=== PATIENT | male | born 1960 | race Caucasian/White ===

== ENCOUNTER → 2019-08-22 | Outpatient (CLI) | payer OTHER ==
[2019-09-04 14:43] LABS: Stool Occult Bld Immuno 1 Negative (NEGATIVE)
== END | disposition home or self-care (01) ==
LOC: LAB 16:13 → LAB SHORT 16:13
PROVIDERS: Family Medicine
DX: Z12.11 Encounter for screening for malignant neoplasm of colon (principal)
CPT/HCPCS: G0328

== ENCOUNTER 2020-10-03 13:34 | Inpatient (IN) | payer OTHER ==
[~2020-10-03] VITALS: Ht 185.4 cm; Wt 91.0 kg
[2020-10-03 14:06] LABS: BASOPHILS ABSOLUTE AUTO 0.11 K/mm3 (0.00-0.23); BASOPHILS PERCENT AUTO 1 % (0-2); EOSINOPHILS ABSOLUTE AUTO 0.33 K/mm3 (0.00-0.68); EOSINOPHILS PERCENT AUTO 4 % (0-6); Hematocrit 35.2 % (37.0-53.0); IMMATURE GRAN ABSOLUTE AUTO 0.02 K/mm3 (0.00-0.10); IMMATURE GRAN PERCENT AUTO 0 % (0-1); LYMPHOCYTES PERCENT AUTO 28 % (21-46); MONOCYTES ABSOLUTE AUTO 0.55 K/mm3 (0.16-1.47); MONOCYTES PERCENT AUTO 6 % (4-13); Mean Corpuscular HGB 24.1 pg (26.0-34.0); Mean Corpuscular HGB Conc 31.3 g/dL (31.5-36.5); Mean Corpuscular Volume 77 fL (80-100); Mean Platelet Volume 11.2 fL (9.1-12.4); NEUTROPHILS ABSOLUTE AUTO 5.82 K/mm3 (1.96-9.15); NEUTROPHILS PERCENT AUTO 61 % (41-73); NRBC ABSOLUTE 0.04 K/mm3 (0.00-0.02); NRBC Auto 0.4 /100 WBC (0.0-0.2); Platelet Count 272 K/mm3 (150-400); RDW Coefficient Variation 17.4 % (11.7-14.2); RDW Standard Deviation 47.9 fL (35.1-46.3); Red Blood Cell Count 4.57 M/mm3 (4.30-5.90); White Blood Cell Count 9.53 K/mm3 (4.00-11.30)
[2020-10-03] MEDS ORDERED: Prinivil10 MG PO (14:20)
[2020-10-03] MEDS ORDERED: EZET10 PO (14:20)
[2020-10-03] MEDS ORDERED: METO25ER PO (14:20)
[2020-10-03] MEDS ORDERED: OZEMPIC1 MG/0.71 SC (14:21)
[2020-10-03] MEDS ORDERED: METF500 PO (14:21)
[2020-10-03] MEDS ORDERED: PREGABALIN150 MG PO (14:22)
[2020-10-03] MEDS ORDERED: ALBU90OI INH (14:22)
[2020-10-03] MEDS ORDERED: XARELTO20 MG PO (14:23)
[2020-10-03] MEDS ORDERED: ACET325 PO (14:23)
[2020-10-03] MEDS ORDERED: IBUP800 PO (14:23)
[2020-10-03] MEDS ORDERED: C COMPLEX1000 M1 PO (14:24)
[2020-10-03] MEDS ORDERED: VITAMIN D31000 UNI1 PO (14:24)
[2020-10-03 14:26] LABS: Bilirubin, Total 0.8 mg/dL (0.1-1.0); Bun/Creatinine Ratio 16.7 (12.0-20.0); Calcium, Blood 8.4 mg/dL (8.5-10.1); Creatinine, Blood 1.44 mg/dL (0.60-1.20); Globulin, Blood 3.1 g/dL (2.2-4.0); Potassium, Blood 5.5 mmol/L (3.5-5.5); Total Protein, Blood 6.1 g/dL (6.4-8.2); Troponin I 0.027 ng/mL (0.000-0.040)
[2020-10-03] MEDS ORDERED: LANTUS SOL100 UNIT/1 SC (14:27)
[2020-10-03] MEDS ORDERED: DOXE75C PO (15:18)
[2020-10-03] MEDS ORDERED: ASPI325 PO (15:37)
[2020-10-03] MEDS ORDERED: OMEGA PO (15:39)
[2020-10-03] MEDS ORDERED: CARBOXYMETHYLCE15 ML LEFTEYE (15:41)
--- NOTE | 2020-10-03 17:36 | NUR ---
RECIEVED REPORT FROM EMMY CHATTERJEE RN, AT [id number]. PATIENT TO TRANSFER TO ROOM 16.
[2020-10-04 01:11] LABS: BASOPHILS ABSOLUTE AUTO 0.12 K/mm3 (0.00-0.23); BASOPHILS PERCENT AUTO 1 % (0-2); EOSINOPHILS ABSOLUTE AUTO 0.46 K/mm3 (0.00-0.68); EOSINOPHILS PERCENT AUTO 5 % (0-6); Hematocrit 35.1 % (37.0-53.0); Hemoglobin 10.8 g/dL (13.5-17.5); IMMATURE GRAN ABSOLUTE AUTO 0.02 K/mm3 (0.00-0.10); IMMATURE GRAN PERCENT AUTO 0 % (0-1); LYMPHOCYTES ABSOLUTE AUTO 3.39 K/mm3 (0.84-5.20); LYMPHOCYTES PERCENT AUTO 36 % (21-46); MONOCYTES ABSOLUTE AUTO 0.55 K/mm3 (0.16-1.47); MONOCYTES PERCENT AUTO 6 % (4-13); Mean Corpuscular HGB 24.1 pg (26.0-34.0); Mean Corpuscular HGB Conc 30.8 g/dL (31.5-36.5); Mean Corpuscular Volume 78 fL (80-100); Mean Platelet Volume 10.7 fL (9.1-12.4); NEUTROPHILS ABSOLUTE AUTO 4.78 K/mm3 (1.96-9.15); NEUTROPHILS PERCENT AUTO 51 % (41-73); NRBC ABSOLUTE 0.03 K/mm3 (0.00-0.02); NRBC Auto 0.3 /100 WBC (0.0-0.2); Platelet Count 240 K/mm3 (150-400); RDW Coefficient Variation 17.3 % (11.7-14.2); RDW Standard Deviation 48.3 fL (35.1-46.3); Red Blood Cell Count 4.49 M/mm3 (4.30-5.90); White Blood Cell Count 9.32 K/mm3 (4.00-11.30)
[2020-10-04 01:49] LABS: Albumin, Blood 2.9 g/dL (3.4-5.0); Albumin/Globulin Ratio 0.9 (0.8-1.8); Bilirubin, Total 0.5 mg/dL (0.1-1.0); Bun/Creatinine Ratio 17.9 (12.0-20.0); Creatinine, Blood 1.51 mg/dL (0.60-1.20); Globulin, Blood 3.1 g/dL (2.2-4.0); Potassium, Blood 4.8 mmol/L (3.5-5.5); Thyroid Stimulating Hormone 1.54 uIU/mL (0.360-4.800); Troponin I 0.028 ng/mL (0.000-0.040)
--- NOTE | 2020-10-04 05:22 | NUR ---
SHIFT SUMMARY PT ALERT AND ORIENTED X 4. PT SLEPT T/O SHIFT. PT IND IN ROOM WITH CANE. PT ABLE TO TURN SELF IN BED NEEDED. HR REMAINED STABLE. BP STABLE. OXYGEN SATURATION MAINTAINED ABOVE 92% ON RA. NO CP OR PRESSURE REPORTED T/O SHIFT. WILL CONTINUE TO MONITOR UNTIL REPORT GIVEN TO DAYSHIFT RN.
--- NOTE | 2020-10-04 14:18 | NUR ---
echocardiogram complete
--- NOTE | 2020-10-04 16:48 | NUR ---
PATIENT HAS BEEN PLEASANT AND COOPERATIVE WITH STAFF. NO COMPLAINTS OF PAIN OR DISCOMFORT. PATIENT WITHOUT ANY ACUTE CHANGES DURING THIS SHIFT. PATIENT RESTING IN ROOM AT THIS TIME. CALL LIGHT WITHIN REACH.
[2020-10-05 04:30] LABS: Bun/Creatinine Ratio 21.8 (12.0-20.0); Calcium, Blood 7.8 mg/dL (8.5-10.1); Creatinine, Blood 1.42 mg/dL (0.60-1.20); Potassium, Blood 4.8 mmol/L (3.5-5.5)
--- NOTE | 2020-10-05 06:17 | NUR ---
SHIFT SUMMARY PT ALERT AND ORIENTED X 4. HR STABLE. BP STABLE. PT REPORTS NO CP OR PRESSURE. OXYGEN SATURATION MAINTAINED ABOVE 95% ON RA. PT ABLE TO TURN SELF NEEDED IN BED. IND IN ROOM. WILL CONTINUE TO MONITOR UNTIL REPORT GIVEN TO DAYSHIFT RN.
[2020-10-05] MEDS ORDERED: POTA10T PO (11:59)
[2020-10-05] MEDS ORDERED: XARELTO20 MG PO (12:04)
[2020-10-05] MEDS ORDERED: FUROSEMIDE (LASIX) PO (12:05)
--- NOTE | 2020-10-05 13:04 | NUR ---
DISCHARGE: PT ALERT AND ORIENTED X4. ON ROOM AIR SATING ABOVE 92%. TELE SHOWING NSR WITH HR 90'S. DENIES CHEST PAIN. VITAL SIGNS STABLE. NO ACUTE CHANGES. LEFT CHRONIC FACIAL DROOP, HX OF LEFT EAR SURGERY WHERE A FACIAL NERVE WAS CLIPPED. DENIES ANY PAIN. SOB WITH EXCERTION. 2-3+ PITTING EDEMA BILATERAL LOWER EXTREMITIES. USING URINAL AND CALLING APPROPRIATLY. DISCHARGE INSTRUCTIONS REVIEWED AND QUESTIONS ANSWERED. IV REMOVED VIA PROTOCOL. TAKEN TO CAR VIA WHEELCHAIR.
== END 2020-10-05 12:54 | disposition home or self-care (01) | DRG 281 ==
LOC: ER 13:34 → PCU 16:17 → ERHOLD 16:17 → PCU 17:57
PROVIDERS: Family Medicine; Physician Assistant; ADMIT Internal Medicine
DX: I50.21 Acute systolic (congestive) heart failure (principal); I21.A1 Myocardial infarction type 2; I48.20 Chronic atrial fibrillation, unspecified; Z79.01 Long term (current) use of anticoagulants; Z79.84 Long term (current) use of oral hypoglycemic drugs; Z87.891 Personal history of nicotine dependence; N18.30 Chronic kidney disease, stage 3 unspecified; E11.22 Type 2 diabetes mellitus with diabetic chronic kidney disease; G51.0 Bell's palsy; R06.89 Other abnormalities of breathing
CPT/HCPCS: 36415; 71046; 80048; 80053; 82947; 83880; 84443; 84484; 85025; 93005; 93010; 93306; 96374; 99285-25; A9270; J1940

== ENCOUNTER → 2020-11-03 | Outpatient (CLI) | payer OTHER ==
[~2020-11-03] MED LIST: ACET325 PO; ALBU90OI INH; ASPI325 PO; ASPI81CH PO; AZO CRANBERRY PO; Acetaminophen325 M1 PO; BUME2 PO; BUMETANIDE2 M2 PO; C COMPLEX1000 M1 PO; CARBOXYMETHYLCE15 ML LEFTEYE; CEPH250A PO; DOXE75C PO; EZET10 PO; FAMO20 PO; FURO20 PO; FURO40 PO; FUROSEMIDE (LASIX) PO; HUMALOG KW100 UNIT/1 SC; IBUP800 PO; JARDIANCE25 MG PO; LACRI-LUBE BOTHEYES; LANTUS SOL100 UNIT/1 SC; LOSA25 PO; METF500 PO; METF500C PO; METFORMIN HCL500 M2 PO; METO25ER PO; MUPIROCIN1 G1 TOP; Midodrine HCl2.5 MG PO; NYSTATIN100000 UNI SS; OMEGA PO; ONDA4 PO; OZEMPIC1 MG/0.71 SC; POTA10T PO; POTCHL20ER PO; PREG150 PO; PREGABALIN150 MG PO; Prinivil10 MG PO; SENN187 PO; SPIR50 PO; TAMS.4ER PO; TAMSULOSIN HCL0.4 M1 PO; VITAMIN D31000 UNI1 PO; XARELTO20 MG PO
[2020-11-04 08:50] LABS: Stool Occult Bld Immuno 1 Negative (NEGATIVE)
== END | disposition home or self-care (01) ==
LOC: LAB 08:00 → LAB SHORT 08:00
PROVIDERS: Student in an Organized Health Care Education/Training Program
DX: D50.9 Iron deficiency anemia, unspecified (principal)
CPT/HCPCS: 82274

== ENCOUNTER 2020-11-05 03:28 | Inpatient (IN) | payer OTHER ==
[~2020-11-05] VITALS: Ht 185.4 cm; Wt 123.5 kg
[~2020-11-05 03:28] MED LIST changes: -ASPI81CH PO; -AZO CRANBERRY PO; -Acetaminophen325 M1 PO; -BUME2 PO; -BUMETANIDE2 M2 PO; -CEPH250A PO; -FAMO20 PO; -FURO20 PO; -FURO40 PO; -HUMALOG KW100 UNIT/1 SC; -JARDIANCE25 MG PO; -LACRI-LUBE BOTHEYES; -LOSA25 PO; -METF500C PO; -METFORMIN HCL500 M2 PO; -MUPIROCIN1 G1 TOP; -Midodrine HCl2.5 MG PO; -NYSTATIN100000 UNI SS; -ONDA4 PO; -POTCHL20ER PO; -PREG150 PO; -SENN187 PO; -SPIR50 PO; -TAMS.4ER PO; -TAMSULOSIN HCL0.4 M1 PO
[2020-11-05 04:08] LABS: PCO2 Arterial 21.8 mmHg (35-45); PO2 Arterial 110 mmHg (80-100); pH Blood Arterial 7.45 (7.35-7.45)
[2020-11-05 04:11] LABS: BASOPHILS ABSOLUTE AUTO 0.05 K/mm3 (0.00-0.23); BASOPHILS PERCENT AUTO 1 % (0-2); EOSINOPHILS ABSOLUTE AUTO 0.09 K/mm3 (0.00-0.68); EOSINOPHILS PERCENT AUTO 1 % (0-6); Hematocrit 35.8 % (37.0-53.0); IMMATURE GRAN ABSOLUTE AUTO 0.03 K/mm3 (0.00-0.10); IMMATURE GRAN PERCENT AUTO 0 % (0-1); LYMPHOCYTES ABSOLUTE AUTO 3.07 K/mm3 (0.84-5.20); LYMPHOCYTES PERCENT AUTO 33 % (21-46); MONOCYTES ABSOLUTE AUTO 0.65 K/mm3 (0.16-1.47); MONOCYTES PERCENT AUTO 7 % (4-13); Mean Corpuscular HGB 21.9 pg (26.0-34.0); Mean Corpuscular HGB Conc 30.7 g/dL (31.5-36.5); Mean Corpuscular Volume 71 fL (80-100); NEUTROPHILS ABSOLUTE AUTO 5.42 K/mm3 (1.96-9.15); NEUTROPHILS PERCENT AUTO 58 % (41-73); NRBC ABSOLUTE 0.12 K/mm3 (0.00-0.02); NRBC Auto 1.3 /100 WBC (0.0-0.2); Platelet Count 92 K/mm3 (150-400); RDW Coefficient Variation 21.6 % (11.7-14.2); RDW Standard Deviation 49.1 fL (35.1-46.3); Red Blood Cell Count 5.02 M/mm3 (4.30-5.90); White Blood Cell Count 9.31 K/mm3 (4.00-11.30)
[2020-11-05 04:23] LABS: International Normalized Ratio 3.01; Prothrombin Time Results 30.3 Sec (9.7-11.5)
[2020-11-05 04:29] LABS: Albumin/Globulin Ratio 1.1 (0.8-1.8); Bilirubin, Total 2.7 mg/dL (0.1-1.0); Bun/Creatinine Ratio 24.2 (12.0-20.0); Calcium, Blood 8.7 mg/dL (8.5-10.1); Creatinine, Blood 2.56 mg/dL (0.60-1.20); Globulin, Blood 2.7 g/dL (2.2-4.0); Potassium, Blood 4.9 mmol/L (3.5-5.5); Total Protein, Blood 5.7 g/dL (6.4-8.2); Troponin I 0.031 ng/mL (0.000-0.040)
[2020-11-05 05:13] LABS: Source, Urine Voided
[2020-11-05 05:16] LABS: Bilirubin, Urine Neg (Neg); Blood, Urine 2+ (Neg); Glucose Qualitative, Urine Neg (Neg); Ketones, Urine Neg (Neg); Leukocyte Esterase, Urine 1+ (Neg); Nitrite, Urine Neg (Neg); Protein, Urine 1+ (Neg); Specific Gravity, Urine 1.015 (1.003-1.022); Urobilinogen, Urine NORM (Normal)
[2020-11-05 05:24] LABS: Appearance, Urine Clear (Clear); Color, Urine Yellow (P-Yellow); White Blood Cells, Urine 0-2 /hpf (0-5)
[2020-11-05 05:25] LABS: Bacteria Few /hpf; Hyaline Casts 50-100 /lpf (0-2); Squamous Epithelial Cells Few /hpf (Few)
--- NOTE | 2020-11-05 07:10 | NUR ---
PATIENT IS A NEW ADMIT FROM THE ED. FIVE PERSON TRANSFER FROM [facility] TO BED. ON 2L O2 NC AND RA BASELINE. ONE ASSIST TO BS BARIATRIC COMMODE. NPO FOR ULTRA SOUND. STANLEY PLACE IN ED FOR I&O'S. EDEMA 4+ RESHMA. DENIES CHEST PAIN AND N/V. DR CERDA IN FOR CONSULT. PENDING TELEMETRY. 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 PATIENT ORIENTED TO ROOM AND CALL LIGHT SYSTEM. BED ALARM FOR BEING IMPULSIVE. CALL LIGHT IN REACH.
--- NOTE | 2020-11-05 09:06 | NUR ---
PT BP/DIURETICS THIS RN SPOKE WITH DR. CERDA ON THE PHONE AND CLARIFIED DIURETIC ORDERS WITH PT BP OF 98/73. THIS RN RECIEVED ORDERS TO CONTINUE TO GIVE AM DOSE OF BUMEX AND ALDACTONE WITH PT'S BP. THIS RN WILL CONTINUE TO MONITOR PT STATUS.
[2020-11-05] MEDS ORDERED: FAMO20 PO (11:22)
[2020-11-05] MEDS ORDERED: SPIR50 PO (11:22)
[2020-11-05] MEDS ORDERED: TAMS.4ER PO (11:22)
[2020-11-05] MEDS ORDERED: FURO20 PO ×2 (11:23)
[2020-11-05] MEDS ORDERED: METF500C PO (11:30)
--- NOTE | 2020-11-05 17:14 | NUR ---
PT BP/BUMEX ORDER THIS RN SPOKE WITH DR. CERDA REGARDING PT'S BP OF 91/63 AND 8 ML BUMEX ORDER. THIS RN RECEIVED ORDERS TO CONTINUE TO GIVE BUMEX WITH PT'S LOW BP. THIS RN WILL CONTINUE TO MONITOR PT STATUS.
--- NOTE | 2020-11-05 18:08 | NUR ---
Spiritual care note: Mr. Webster spoke at length about his many "botched" surgeries and the difficulty these have brought. He is a and a retired respiratory therapist. He had to quit working due to his left sided paralysis. His is 14 years older than he, and he worries about dying before she does. He admits that his new health crisises have overwhelmed him. Cardiac, renal, and hepatic problems are new newly diagnosed and he has had trouble shifting through information/appointments. He could use a little guidence, symptom management, and emotional support. We had an easy rapport, and Mr. Webster responded well to emotional affirmation and prayer. He is clearly processing his declining health and the impact this brings to ADLs. He will benefit from continued support. [employer] will remain available.
--- NOTE | 2020-11-05 19:21 | NUR ---
SHIFT SUMMARY PT IS AOX4, WITH SLOW SPEECH. PT DENIES PAIN, N/V, SOB. PT 24HR URINE STARTED AT 1000 TODAY. INTAKE IS GOOD. PT REMAINS HYPOTENSIVE THIS ARNOLDO AND IS RECEIVING DIURETICS. PT HAD ABDOMINAL ULTRASOUND THIS AM. PT DID NOT HAVE VISITORS TODAY. PT IS IN BED, CALL LIGHT IN REACH, BED IN LOW POSITION.
[2020-11-06 04:36] LABS: BASOPHILS ABSOLUTE AUTO 0.04 K/mm3 (0.00-0.23); BASOPHILS PERCENT AUTO 0 % (0-2); EOSINOPHILS PERCENT AUTO 1 % (0-6); Hematocrit 36.8 % (37.0-53.0); Hemoglobin 11.6 g/dL (13.5-17.5); IMMATURE GRAN ABSOLUTE AUTO 0.04 K/mm3 (0.00-0.10); IMMATURE GRAN PERCENT AUTO 0 % (0-1); LYMPHOCYTES ABSOLUTE AUTO 2.64 K/mm3 (0.84-5.20); LYMPHOCYTES PERCENT AUTO 22 % (21-46); MONOCYTES ABSOLUTE AUTO 0.76 K/mm3 (0.16-1.47); MONOCYTES PERCENT AUTO 6 % (4-13); Mean Corpuscular HGB 21.8 pg (26.0-34.0); Mean Corpuscular HGB Conc 31.5 g/dL (31.5-36.5); Mean Corpuscular Volume 69 fL (80-100); NEUTROPHILS ABSOLUTE AUTO 8.22 K/mm3 (1.96-9.15); NEUTROPHILS PERCENT AUTO 70 % (41-73); NRBC ABSOLUTE 0.12 K/mm3 (0.00-0.02); Platelet Count 94 K/mm3 (150-400); RDW Coefficient Variation 21.8 % (11.7-14.2); RDW Standard Deviation 48.2 fL (35.1-46.3); Red Blood Cell Count 5.33 M/mm3 (4.30-5.90)
[2020-11-06 04:50] LABS: International Normalized Ratio 2.53; Prothrombin Time Results 25.7 Sec (9.7-11.5)
[2020-11-06 04:53] LABS: Albumin, Blood 3.1 g/dL (3.4-5.0); Albumin/Globulin Ratio 1.1 (0.8-1.8); Bun/Creatinine Ratio 25.8 (12.0-20.0); Calcium, Blood 8.8 mg/dL (8.5-10.1); Creatinine, Blood 2.21 mg/dL (0.60-1.20); Globulin, Blood 2.9 g/dL (2.2-4.0); Phosphorus, Blood 3.3 mg/dL (2.5-4.9); Potassium, Blood 4.2 mmol/L (3.5-5.5)
--- NOTE | 2020-11-06 05:17 | NUR ---
SHIFT SUMMARY PATIENT HAD NO ACUTE CHANGES OBSERVED. AXOX 3 AND SLOW TO RESPOND. LS FACIAL PARALYSIS. TWENTY-FOUR HOUR URINE COLLECTION IN PROGRESS UNTIL 10:00. ANGEL PATENT AND DRAINING. PIV REMAINS INTACT. TRUCK UNLOADER REPORTS ST 101 W/BBB. VSS/AFEBRILE. DENIES PAIN AND N/V. FLUID RESTRICTION 1,000 mL. ONE ASSIST TO BARIATRIC BSC. CALL LIGHT IN REACH. BED IN LOWEST POSITION. WILL CONTINUE TO MONITOR UNTIL DAY SHIFT NURSE ASSUMES CARE.
[2020-11-06 10:54] LABS: Protein, Urine Quantitative 7.1 mg/dL (0.0-11.9)
--- NOTE | 2020-11-06 16:54 | NUR ---
RECEIVED CALL FROM PCU TELECOMMUNICATIONS SWITCH TECHNICIAN. PT IS SHOWING SOME SORT OF MOPHOLOGY WITH HIS BUNDLE BRANCH. PT MAY HAVE ELEVATED ST WAVES, HOWEVER WAVES ARE NOT DIFFERENTIATED. PT IS ASYMPTOMATIC. I SPOKE WITH MD WAN TELE CONCERNS AND EKG WILL BE ORDERED AND COMPLETED.
--- NOTE | 2020-11-06 18:45 | NUR ---
PT IS IN BED RESTING AFTER DINNER AND PM MEDICATION ADMIN. PT REMAINS ALERT AND ORIENTED X4, AND ON 1000 ML PER SHIFT FLUID RESTRICTION. ELIZ HAS BEEN DC'D AND WNL, WILL MONITOR FOR RETENTION. PT MAKES NO C/O OF CHEST PAIN OR SOB AT THIS TIME. EKG RESULTS WERE READ TO DR. SOTO AND NO NEW ORDERS WERE MADE. TELE TO CONT. TO MONITOR. STAFF WILL CONT TO MONITOR FOR SS.
[2020-11-06 20:49] LABS: Influenza A, PCR NEGATIVE (NEGATIVE); Influenza B, PCR NEGATIVE (NEGATIVE); Resp Syncytial Virus, PCR NEGATIVE (NEGATIVE); SARS-Cov-2 (COVID-19) PCR, MMC NEGATIVE (NEGATIVE)
--- NOTE | 2020-11-07 | NUR ---
UNWITNESSED FALL- UPON ENTERING ROOM FOUND PT. KNEELING ON THE FLOOR AND HOLDING ONTO THE WALKER. PT. STATED DID NOT WANT HIS BARE FEET TO TOUCH THE HOSPITAL FLOOR SO HE PLACED A PILLOW ON THE FLOOR AND STOOD ON IT WHILE ATTEMPTING TO URINATE IN THE URINAL. STATED PILLOW SLIPPED OUT FROM UNDERNEATH HIS FEET AND HE FELL ONTO HIS KNEES. PT. WAS ABLE TO STAND UP WITH ASSISTANCE BY THIS NURSE AND WALKED OVER TO THE BED W/O DIFFICULTY. ASSESSMENT PERFORMED WNL, VSS. PT. A&OX4, DENIES ANY PAIN OR DISCOMFORT. NO S/S OF REDNESS, ABRASIONS, OR BRUISING NOTED AT THIS TIME. PT. REFUSES TO WEAR HOSPITAL SOCKS WHILE AMBULATING, STATING THEY MAKE HIS FEET HURT MORE. INFORMED PT. NON-SKID SOCKS ARE HELPFUL IN PROVIDING SAFE AMBULATION. ALSO DISCUSSED CALLING NURSING STAFF FOR ASSISTANCE W/TOILETING AND/OR AMBULATION. THIS NURSE AND HUMAN RESOURCES MGR ASSISTED PT. WITH REPOSITIONING IN BED, URINAL PLACED AT THE BEDSIDE WELL THE BSC. CHARGE NURSE JOSH THOMPSON AND HOSPITALIST DR. PORTER NOTIFIED. RECEIVED ORDER TO CONT TO MONITOR. PT. RESTING QUIETLY IN BED, NO APPARENT DISTRESS NOTED. INSTRUCTED PT. TO CALL STAFF FOR ASSISTANCE WITH ANY NEEDS. CALL LIGHT WITHIN REACH, SIDE RAILS UPX2, BED IN LOW POSITION, AND BED ALARM ON FOR SAFETY. WILL CONT TO MONITOR. INSTRUCTED TO CALL STAFF FOR ASSISTANCE WITH ANY NEEDS. PT. RESTING QU
[2020-11-07 05:18] LABS: Hematocrit 36.1 % (37.0-53.0); Hemoglobin 11.4 g/dL (13.5-17.5)
[2020-11-07 05:45] LABS: Albumin, Blood 2.9 g/dL (3.4-5.0); Albumin/Globulin Ratio 1.1 (0.8-1.8); Bilirubin, Total 4.9 mg/dL (0.1-1.0); Bun/Creatinine Ratio 26.6 (12.0-20.0); Calcium, Blood 8.3 mg/dL (8.5-10.1); Creatinine, Blood 1.77 mg/dL (0.60-1.20); Globulin, Blood 2.7 g/dL (2.2-4.0); Potassium, Blood 3.5 mmol/L (3.5-5.5); Total Protein, Blood 5.6 g/dL (6.4-8.2)
[2020-11-07 05:55] LABS: International Normalized Ratio 1.94
--- NOTE | 2020-11-07 06:26 | NUR ---
SHIFT SUMMARY- PT. A&OX4, HAD NO COMPLAINTS THIS AM. RESTING QUIETLY IN BED, USING URINAL AT THE BEDSIDE. PT. DOES NOT CALL APPROPRIATELY FOR ASSISTANCE, BED ALARM IN PLACE. DENIES SOB, PAIN OR DISCOMFORT. CALL LIGHT WITHIN REACH. WILL CONT TO MONITOR.
[2020-11-07 07:09] LABS: HBSAG SCREEN Negative (Negative); HEP B CORE AB, TOT Negative (Negative); HEP C VIRUS AB 0.1 (0.0-0.9)
[2020-11-07] MEDS ORDERED: SENN187 PO (11:14)
[2020-11-07] MEDS ORDERED: JARDIANCE25 MG PO (11:14)
[2020-11-07] MEDS ORDERED: BUME2 PO (11:40)
--- NOTE | 2020-11-07 14:17 | NUR ---
PT DISCHARGED FROM THE UNIT. IV REMOVED. DISCHARGE INSTRUCTIONS REVIEWED. MEDICATIONS FAXED TO PHARMACY. PT LEFT UNIT VIA WHEEL CHAIR
== END 2020-11-07 15:11 | disposition home or self-care (01) | DRG 291 ==
LOC: ER 03:28 → MEDS 05:05
PROVIDERS: Emergency Medicine; Internal Medicine; Internal Medicine Nephrology; ADMIT Internal Medicine
DX: I13.0 Hypertensive heart and chronic kidney disease with heart failure and stage 1 through stage 4 chronic kidney disease, or unspecified chronic kidney disease (principal); I50.43 Acute on chronic combined systolic (congestive) and diastolic (congestive) heart failure; N17.9 Acute kidney failure, unspecified; E87.2 Acidosis; E87.1 Hypo-osmolality and hyponatremia; N25.81 Secondary hyperparathyroidism of renal origin; G81.94 Hemiplegia, unspecified affecting left nondominant side; N18.30 Chronic kidney disease, stage 3 unspecified; Z20.822 Contact with and (suspected) exposure to COVID-19; E11.22 Type 2 diabetes mellitus with diabetic chronic kidney disease; K74.60 Unspecified cirrhosis of liver; E88.09 Other disorders of plasma-protein metabolism, not elsewhere classified; I48.0 Paroxysmal atrial fibrillation; D69.6 Thrombocytopenia, unspecified; J44.9 Chronic obstructive pulmonary disease, unspecified; D50.9 Iron deficiency anemia, unspecified; D63.1 Anemia in chronic kidney disease; K80.20 Calculus of gallbladder without cholecystitis without obstruction; R80.9 Proteinuria, unspecified; M19.90 Unspecified osteoarthritis, unspecified site; Z79.82 Long term (current) use of aspirin; Z79.4 Long term (current) use of insulin; Z79.899 Other long term (current) drug therapy; Z79.01 Long term (current) use of anticoagulants; Z87.891 Personal history of nicotine dependence
CPT/HCPCS: 0241U; 36415; 36600; 51702; 51798; 71045; 71250; 74176; 76705; 80053; 81001; 81050; 82803; 82947; 83605; 83690; 83735; 83880; 84100; 84156; 84484; 85014; 85018; 85025; 85610; 86704; 86708; 86803; 87340; 93005; 93010; 94660; 96374-59; 99285-25; A9270; J1940

== ENCOUNTER → 2020-11-11 | Outpatient (CLI) | payer OTHER ==
[~2020-11-11] MED LIST changes: +ASPI81CH PO; +AZO CRANBERRY PO; +Acetaminophen325 M1 PO; +BUME2 PO; +BUMETANIDE2 M2 PO; +CEPH250A PO; +FAMO20 PO; +FURO20 PO; +FURO40 PO; +HUMALOG KW100 UNIT/1 SC; +JARDIANCE25 MG PO; +LACRI-LUBE BOTHEYES; +LOSA25 PO; +METF500C PO; +METFORMIN HCL500 M2 PO; +MUPIROCIN1 G1 TOP; +Midodrine HCl2.5 MG PO; +NYSTATIN100000 UNI SS; +ONDA4 PO; +POTCHL20ER PO; +PREG150 PO; +SENN187 PO; +SPIR50 PO; +TAMS.4ER PO; +TAMSULOSIN HCL0.4 M1 PO
[2020-11-11 16:59] LABS: Creatinine Urine 60.5 mg/dL (27.00-270.00); Microalbumin, Urine Quant. 8.24 mg/L (0.000-20.000); Protein, Urine Quantitative 9.1 mg/dL (0.0-11.9)
== END ==
LOC: PLD 14:40 → LAB SHORT 14:40
PROVIDERS: Internal Medicine Nephrology
DX: N18.30 Chronic kidney disease, stage 3 unspecified (principal); D63.1 Anemia in chronic kidney disease; N25.81 Secondary hyperparathyroidism of renal origin; E55.9 Vitamin D deficiency, unspecified; E78.00 Pure hypercholesterolemia, unspecified; R78.9 Finding of unspecified substance, not normally found in blood; R94.5 Abnormal results of liver function studies; D51.8 Other vitamin B12 deficiency anemias; D52.8 Other folate deficiency anemias
CPT/HCPCS: 81050; 82043; 82570; 84156

== ENCOUNTER 2020-11-24 14:23 | Observation (INO) | payer OTHER ==
[~2020-11-24] VITALS: Ht 185.4 cm; Wt 115.8 kg
[~2020-11-24 14:23] MED LIST changes: -ASPI81CH PO; -AZO CRANBERRY PO; -Acetaminophen325 M1 PO; -BUMETANIDE2 M2 PO; -CEPH250A PO; -FURO40 PO; -HUMALOG KW100 UNIT/1 SC; -LACRI-LUBE BOTHEYES; -LOSA25 PO; -METFORMIN HCL500 M2 PO; -MUPIROCIN1 G1 TOP; -Midodrine HCl2.5 MG PO; -NYSTATIN100000 UNI SS; -ONDA4 PO; -POTCHL20ER PO; -PREG150 PO; -TAMSULOSIN HCL0.4 M1 PO
[2020-11-24 15:20] LABS: BASOPHILS ABSOLUTE AUTO 0.05 K/mm3 (0.00-0.23); BASOPHILS PERCENT AUTO 1 % (0-2); EOSINOPHILS ABSOLUTE AUTO 0.03 K/mm3 (0.00-0.68); EOSINOPHILS PERCENT AUTO 0 % (0-6); Hematocrit 34.1 % (37.0-53.0); Hemoglobin 10.3 g/dL (13.5-17.5); IMMATURE GRAN ABSOLUTE AUTO 0.03 K/mm3 (0.00-0.10); IMMATURE GRAN PERCENT AUTO 0 % (0-1); LYMPHOCYTES ABSOLUTE AUTO 1.75 K/mm3 (0.84-5.20); LYMPHOCYTES PERCENT AUTO 20 % (21-46); MONOCYTES ABSOLUTE AUTO 0.52 K/mm3 (0.16-1.47); MONOCYTES PERCENT AUTO 6 % (4-13); Mean Corpuscular HGB 21.7 pg (26.0-34.0); Mean Corpuscular HGB Conc 30.2 g/dL (31.5-36.5); Mean Corpuscular Volume 72 fL (80-100); NEUTROPHILS ABSOLUTE AUTO 6.48 K/mm3 (1.96-9.15); NEUTROPHILS PERCENT AUTO 73 % (41-73); NRBC ABSOLUTE 0.07 K/mm3 (0.00-0.02); NRBC Auto 0.8 /100 WBC (0.0-0.2); Platelet Count 139 K/mm3 (150-400); RDW Coefficient Variation 24.5 % (11.7-14.2); RDW Standard Deviation 60.7 fL (35.1-46.3); Red Blood Cell Count 4.74 M/mm3 (4.30-5.90); White Blood Cell Count 8.86 K/mm3 (4.00-11.30)
[2020-11-24 15:29] LABS: Troponin I <0.015 ng/mL (0.000-0.040)
[2020-11-24 15:36] LABS: Alanine Aminotransfer (ALT/SGP 57 U/L (12-78); Albumin, Blood 2.5 g/dL (3.4-5.0); Albumin/Globulin Ratio 0.7 (0.8-1.8); Alk Phos 108 U/L (50-136); Anion Gap 13 mmol/L (6-16); Aspartate Aminotrans (AST/SGOT 76 U/L (12-37); Bilirubin, Total 3.2 mg/dL (0.1-1.0); Blood Urea Nitrogen 64 mg/dL (8-24); Bun/Creatinine Ratio 31.2 (12.0-20.0); CO2, Blood 17 mmol/L (21-32); Calcium, Blood 7.7 mg/dL (8.5-10.1); Chloride, Blood 95 mmol/L (98-108); Creatinine, Blood 2.05 mg/dL (0.60-1.20); Globulin, Blood 3.4 g/dL (2.2-4.0); Glomerular Filtration Rate 36 (60-); Glucose, Blood 182 mg/dL (70-99); Magnesium, Blood 2.4 mg/dL (1.6-2.4); Phosphorus, Blood 4.9 mg/dL (2.5-4.9); Potassium, Blood 5.2 mmol/L (3.5-5.5); Sodium, Blood 125 mmol/L (136-145); Total Protein, Blood 5.9 g/dL (6.4-8.2)
[2020-11-24 17:43] LABS: Source, Urine Clean Catch
[2020-11-24 17:46] LABS: Appearance, Urine Clear (Clear); Bilirubin, Urine Neg (Neg); Blood, Urine Neg (Neg); Color, Urine Yellow (P-Yellow); Glucose Qualitative, Urine 3+ (Neg); Ketones, Urine Neg (Neg); Leukocyte Esterase, Urine Neg (Neg); Nitrite, Urine Neg (Neg); Protein, Urine Neg (Neg); Specific Gravity, Urine 1.015 (1.003-1.022); Urobilinogen, Urine NORM (Normal)
[2020-11-24] MEDS ORDERED: DOXE75C PO (18:33)
[2020-11-24] MEDS ORDERED: TAMSULOSIN HCL0.4 M1 PO (18:33)
[2020-11-24] MEDS ORDERED: METFORMIN HCL500 M2 PO (18:34)
[2020-11-24] MEDS ORDERED: FAMO20 PO (18:34)
[2020-11-24] MEDS ORDERED: PREG150 PO (19:55)
[2020-11-24] MEDS ORDERED: XARELTO20 MG PO (19:55)
[2020-11-24] MEDS ORDERED: TAMS.4ER PO (21:32)
[2020-11-25 04:50] LABS: BASOPHILS ABSOLUTE AUTO 0.06 K/mm3 (0.00-0.23); BASOPHILS PERCENT AUTO 1 % (0-2); EOSINOPHILS ABSOLUTE AUTO 0.14 K/mm3 (0.00-0.68); EOSINOPHILS PERCENT AUTO 2 % (0-6); Hematocrit 32.8 % (37.0-53.0); IMMATURE GRAN ABSOLUTE AUTO 0.03 K/mm3 (0.00-0.10); IMMATURE GRAN PERCENT AUTO 0 % (0-1); LYMPHOCYTES ABSOLUTE AUTO 2.45 K/mm3 (0.84-5.20); LYMPHOCYTES PERCENT AUTO 31 % (21-46); MONOCYTES ABSOLUTE AUTO 0.54 K/mm3 (0.16-1.47); MONOCYTES PERCENT AUTO 7 % (4-13); Mean Corpuscular HGB 21.8 pg (26.0-34.0); Mean Corpuscular HGB Conc 30.5 g/dL (31.5-36.5); Mean Corpuscular Volume 72 fL (80-100); NEUTROPHILS ABSOLUTE AUTO 4.66 K/mm3 (1.96-9.15); NEUTROPHILS PERCENT AUTO 59 % (41-73); NRBC ABSOLUTE 0.09 K/mm3 (0.00-0.02); NRBC Auto 1.1 /100 WBC (0.0-0.2); Platelet Count 138 K/mm3 (150-400); RDW Coefficient Variation 24.3 % (11.7-14.2); RDW Standard Deviation 59.5 fL (35.1-46.3); Red Blood Cell Count 4.58 M/mm3 (4.30-5.90); White Blood Cell Count 7.88 K/mm3 (4.00-11.30)
[2020-11-25 05:20] LABS: Albumin, Blood 2.5 g/dL (3.4-5.0); Albumin/Globulin Ratio 0.9 (0.8-1.8); Bilirubin, Total 2.8 mg/dL (0.1-1.0); Bun/Creatinine Ratio 31.5 (12.0-20.0); Calcium, Blood 7.8 mg/dL (8.5-10.1); Creatinine, Blood 1.97 mg/dL (0.60-1.20); Globulin, Blood 2.8 g/dL (2.2-4.0); Potassium, Blood 3.8 mmol/L (3.5-5.5); Total Protein, Blood 5.3 g/dL (6.4-8.2)
--- NOTE | 2020-11-25 05:45 | NUR ---
SHIFT SUMMARY PT CAME FROM ER VIA STRETCHER, STOOD AND PIVOT TO SELF TRANSFER TO BED; PT A&O X 4; DETAILED HISTORIAN; DENIES CHEST PAIN; BP SOFT BUT STABLE; NSR NOTED ON TELE; O2 SATS >93 ON RA; MILADY HARE NOTIFIED OF LACTIC WHICH APPEARS TO BE CHRONICALLY ELEVATED DUE TO LIVER CIRRHOSIS; 3+ PITTING EDEMA IN LOWER EXTREMITIES; WOUNDS IN BETWEEN TOES ON BOTH FEET; PT STATES HE IS TO HAVE AN APPOINTMENT W/ , DISCUSSED WITH MILADY HARE WHOM STATES SHE HAS SPOKEN W/ AND PT WILL HAVE AN APPOINTMENT AT 1100 ON MONDAY; PT EDUCATED ON UNIT SAFETY PROTOCOL AND CALL LIGHT; BELONGINGS AND CALL LIGHT IN REACH; BED IN LOWEST POSITION; WILL CONTINUE TO MONITOR CLOSELY UNTIL HAND OFF TO DAY SHIFT RN.
--- NOTE | 2020-11-25 12:30 | NUR ---
PT DISCHARGED TO HOME WITH DISCHARGE ORDERS, NO NEW MEDICATIONS.NO ACUTE CHANGE FOR THE SHIFT, BP SYSTOLIC ON THE 90'S MAP ABOVE 70'S, DR PRYOR IS AWARE. PT DENIES ANY CHEST PAIN/PRESSURE, MILD SOB WITH EXERTION. ON ROOMAIR. DISCHARGE INSTRUCTIONS AND FOLLOW UP APPT DISCLOSED WITH THE PT. PRESCIPTION SENT TO [facility]. ALL BELONGINGS SENT WITH THE PT, ACCOMPANIED BY PCT VIA WHEELCHAIR, CALLED [facility] FOR TRANSPORTATION TO THE [facility]. PT'S VEHICLE PARKED AT THE [facility].
== END 2020-11-25 12:32 | disposition home or self-care (01) ==
LOC: ER 14:23 → PCU 14:24
PROVIDERS: Emergency Medicine; Nurse Practitioner Acute Care; ADMIT Hospitalist
DX: I50.43 Acute on chronic combined systolic (congestive) and diastolic (congestive) heart failure (principal); I95.9 Hypotension, unspecified; E87.2 Acidosis; I48.0 Paroxysmal atrial fibrillation; J44.9 Chronic obstructive pulmonary disease, unspecified; I27.20 Pulmonary hypertension, unspecified; E11.22 Type 2 diabetes mellitus with diabetic chronic kidney disease; N18.30 Chronic kidney disease, stage 3 unspecified; D63.1 Anemia in chronic kidney disease; N25.81 Secondary hyperparathyroidism of renal origin; N17.9 Acute kidney failure, unspecified; E87.1 Hypo-osmolality and hyponatremia; G81.94 Hemiplegia, unspecified affecting left nondominant side; K74.60 Unspecified cirrhosis of liver; E88.09 Other disorders of plasma-protein metabolism, not elsewhere classified; D69.6 Thrombocytopenia, unspecified; D50.9 Iron deficiency anemia, unspecified; K80.20 Calculus of gallbladder without cholecystitis without obstruction; R80.9 Proteinuria, unspecified; M19.90 Unspecified osteoarthritis, unspecified site; Z79.82 Long term (current) use of aspirin; Z79.4 Long term (current) use of insulin; Z79.899 Other long term (current) drug therapy; Z79.01 Long term (current) use of anticoagulants; Z87.891 Personal history of nicotine dependence
CPT/HCPCS: 36415; 70450; 71045; 72125; 80053; 81003; 82330; 82947; 83605; 83735; 83880; 84100; 84443; 84484; 85025; 93005; 93010; 96365; 99285-25; A9270; J0610; J7120

== ENCOUNTER 2020-12-08 12:21 | Inpatient (IN) | payer OTHER ==
[~2020-12-08] VITALS: Ht 182.9 cm; Wt 112.6 kg
[~2020-12-08 12:21] MED LIST changes: +METFORMIN HCL500 M2 PO; +PREG150 PO; +TAMSULOSIN HCL0.4 M1 PO
[2020-12-08] MEDS ORDERED: BUMETANIDE2 M2 PO (13:04)
[2020-12-08] MEDS ORDERED: Midodrine HCl2.5 MG PO (13:04)
[2020-12-08] MEDS ORDERED: METFORMIN HCL500 M2 PO (13:05)
[2020-12-08 13:11] LABS: Albumin, Blood 2.7 g/dL (3.4-5.0); Albumin/Globulin Ratio 0.8 (0.8-1.8); Bilirubin, Total 2.9 mg/dL (0.1-1.0); Bun/Creatinine Ratio 26.7 (12.0-20.0); Calcium, Blood 7.9 mg/dL (8.5-10.1); Creatinine, Blood 2.02 mg/dL (0.60-1.20); Globulin, Blood 3.6 g/dL (2.2-4.0); Potassium, Blood 3.6 mmol/L (3.5-5.5); Total Protein, Blood 6.3 g/dL (6.4-8.2); Troponin I 0.017 ng/mL (0.000-0.040)
[2020-12-08 14:41] LABS: BASOPHILS ABSOLUTE AUTO 0.06 K/mm3 (0.00-0.23); BASOPHILS PERCENT AUTO 0 % (0-2); EOSINOPHILS ABSOLUTE AUTO 0.12 K/mm3 (0.00-0.68); EOSINOPHILS PERCENT AUTO 1 % (0-6); Hematocrit 35.3 % (37.0-53.0); Hemoglobin 10.6 g/dL (13.5-17.5); IMMATURE GRAN ABSOLUTE AUTO 0.19 K/mm3 (0.00-0.10); IMMATURE GRAN PERCENT AUTO 1 % (0-1); LYMPHOCYTES ABSOLUTE AUTO 2.22 K/mm3 (0.84-5.20); LYMPHOCYTES PERCENT AUTO 15 % (21-46); MONOCYTES ABSOLUTE AUTO 0.61 K/mm3 (0.16-1.47); MONOCYTES PERCENT AUTO 4 % (4-13); Mean Corpuscular HGB 21.5 pg (26.0-34.0); Mean Corpuscular Volume 72 fL (80-100); NEUTROPHILS ABSOLUTE AUTO 11.21 K/mm3 (1.96-9.15); NEUTROPHILS PERCENT AUTO 78 % (41-73); NRBC ABSOLUTE 0.79 K/mm3 (0.00-0.02); NRBC Auto 5.5 /100 WBC (0.0-0.2); Platelet Count 158 K/mm3 (150-400); RDW Coefficient Variation 26.1 % (11.7-14.2); RDW Standard Deviation 63.2 fL (35.1-46.3); Red Blood Cell Count 4.92 M/mm3 (4.30-5.90); White Blood Cell Count 14.41 K/mm3 (4.00-11.30)
--- NOTE | 2020-12-08 18:33 | NUR ---
SHIFT SUMMARY: ASSUMED CARE OF PT UPON HIS ARRIVAL FROM ED AT 1556. A&O X 3, CAN MAKE NEEDS KNOWN. C/O PAIN IN BLE; MEDICATED WITH TYLENOL WITH SOME RELIEF. TELEMETRY SHOWS SR WITH 1ST DEGREE AND BB BLOCKS. HAS 3+ PITTING EDEMA FROM BLE TO LOW BACK. HAS MULTIPLE WOUNDS ON BLE, PHOTOGRAPHS IN CHART. TOLERATING DIET, EDUCATED ABOUT 1200 ML FLUID RESTRICTION. BREATH SOUNDS DIM THROUGHOUT, ON ROOM AIR. W/C AT BASELINE.
[2020-12-08] MEDS ORDERED: FAMO20 PO (19:32)
[2020-12-08] MEDS ORDERED: FURO40 PO (19:34)
[2020-12-08] MEDS ORDERED: NYSTATIN100000 UNI SS (19:35)
[2020-12-08] MEDS ORDERED: MUPIROCIN1 G1 TOP (19:38)
[2020-12-08] MEDS ORDERED: CEPH250A PO (19:39)
[2020-12-09 05:09] LABS: BASOPHILS ABSOLUTE AUTO 0.07 K/mm3 (0.00-0.23); BASOPHILS PERCENT AUTO 1 % (0-2); EOSINOPHILS ABSOLUTE AUTO 0.27 K/mm3 (0.00-0.68); EOSINOPHILS PERCENT AUTO 2 % (0-6); Hematocrit 34.8 % (37.0-53.0); Hemoglobin 10.2 g/dL (13.5-17.5); IMMATURE GRAN ABSOLUTE AUTO 0.07 K/mm3 (0.00-0.10); IMMATURE GRAN PERCENT AUTO 1 % (0-1); LYMPHOCYTES ABSOLUTE AUTO 3.09 K/mm3 (0.84-5.20); LYMPHOCYTES PERCENT AUTO 23 % (21-46); MONOCYTES ABSOLUTE AUTO 0.61 K/mm3 (0.16-1.47); MONOCYTES PERCENT AUTO 5 % (4-13); Mean Corpuscular HGB 21.5 pg (26.0-34.0); Mean Corpuscular HGB Conc 29.3 g/dL (31.5-36.5); Mean Corpuscular Volume 73 fL (80-100); NEUTROPHILS ABSOLUTE AUTO 9.11 K/mm3 (1.96-9.15); NEUTROPHILS PERCENT AUTO 69 % (41-73); NRBC ABSOLUTE 1.13 K/mm3 (0.00-0.02); NRBC Auto 8.5 /100 WBC (0.0-0.2); Platelet Count 166 K/mm3 (150-400); RDW Coefficient Variation 25.9 % (11.7-14.2); RDW Standard Deviation 64.9 fL (35.1-46.3); Red Blood Cell Count 4.75 M/mm3 (4.30-5.90); White Blood Cell Count 13.22 K/mm3 (4.00-11.30)
[2020-12-09 05:28] LABS: Albumin, Blood 2.5 g/dL (3.4-5.0); Albumin/Globulin Ratio 0.8 (0.8-1.8); Bilirubin, Total 2.6 mg/dL (0.1-1.0); Bun/Creatinine Ratio 26.5 (12.0-20.0); Calcium, Blood 7.8 mg/dL (8.5-10.1); Creatinine, Blood 1.89 mg/dL (0.60-1.20); Globulin, Blood 3.2 g/dL (2.2-4.0); Magnesium, Blood 2.5 mg/dL (1.6-2.4); Total Protein, Blood 5.7 g/dL (6.4-8.2)
--- NOTE | 2020-12-09 06:14 | NUR ---
[employer] [place] with hx of service connected disability 30% with CHF, IDDM & multiple falls at home admitted to assess & treat wounds & CHF. Prevent more falls further injury beyond rib fxs he has recently sustained. PT has poor safety awareness, poor balance & is WC bound at baseline. PT has who is 12 years older than he is & is unable to assist with transfers. He says she was motified with multiple falls. PT has hx of lt ear surgery with severering of a nerve in the cervical spine. Severe lt facia l droop, lt UE & LT LE weakness. Severe deep edema rt LE & PT unable to lift RT LE & has max assist of 2, GB FWW with CGA, multiple cues to stand pivot to BSC. He continues very high fall risk dependent for ADLS & bed mobility, can use urinal with cues & setup. 1200 ml fluid restriction. Speech is slurred due to facial droop & LT eye does not close. Jaundiced appearance very pale & weak, CO feeling cold. Medicated for bilat LE pain x 2 with tylenol 650 mg with helpful effect. On lyrica at HS. On doxipine at HS & he slept well after administration. IV pulled out when transferring difficult to reastart due to valves. Wounds bilat LE with redness pain warmth. Elevated bilat LE on pillows above heart level to decrease edema. Pictures of wounds taken on day shift & in chart.
--- NOTE | 2020-12-09 12:09 | NUR ---
Echocardiogram performed.
--- NOTE | 2020-12-09 19:35 | NUR ---
SHIFT SUMMARY: NO ACUTE EVENTS. NO EVENTS ON TELEMETRY, SR WITH BBB AND 1ST DEGREE BLOCK, RATE 80-90'S. C/O PAIN IN BLE; MEDICATED PER EMAR. NO BM SINCE 12/04; HE DECLINED OFFERED BOWEL MEDS BECAUSE PHYSICAL THERAPIST RECOMMENDED NOT [place] [facility] [place] DOES NOT WANT TO USE BEDPAN. ATTEMPTED TO HIDE PO WATER INTAKE, IS HAVING TROUBLE WITH COMPLIANCE. POTASSIUM REPLACED. DRESSINGS ON BLE CHANGED; PAINFUL DURING TREATMENT. MARIA LUZ VISITED THIS AFTERNOON, BROUGHT PT 24 OZ ICED TEA, WHICH WAS PROMPTLY TAKEN AWAY AND EDUCATED ABOUT FLUID RESTRICTION. HYPOTENSIVE 80/50'S; HTN MEDS HELD, ON MIDODRINE. PLAN IS TRANSFER TO [facility] FOR REHAB.
--- NOTE | 2020-12-10 03:53 | NUR ---
SHIFT SUMMARY: BP CONSISTENT W/ PT BASELINE. HR 95-101. NSR, 1ST DEGREE HB PER TELE MONITOR. DENIES CHEST PAIN. DENIES SOB. SLEEPING W/ BLE ELEVATED. 3+PITTING EDEMA TO BLE. IV ABT INFUSED PER ORDERS. PT ATTEMPTING ASKING STAFF TO WAIVE HIS FLUID RESTRICTION, BUT HAS REMAINED COMPLIANT W/ ENCOURAGEMENT AND EDUCATION. REMAINS IN BED TONIGHT. CONDOM CATH PLACED PER PT REQUEST. PT HAS SLEPT THROUGH MUCH OF THE NIGHT. NO ACUTE CHANGES. BED LOW, BED ALARM ON. WCTM.
[2020-12-10 05:22] LABS: BASOPHILS ABSOLUTE AUTO 0.06 K/mm3 (0.00-0.23); BASOPHILS PERCENT AUTO 1 % (0-2); EOSINOPHILS ABSOLUTE AUTO 0.26 K/mm3 (0.00-0.68); EOSINOPHILS PERCENT AUTO 2 % (0-6); Hemoglobin 9.5 g/dL (13.5-17.5); IMMATURE GRAN ABSOLUTE AUTO 0.05 K/mm3 (0.00-0.10); IMMATURE GRAN PERCENT AUTO 1 % (0-1); LYMPHOCYTES ABSOLUTE AUTO 2.94 K/mm3 (0.84-5.20); LYMPHOCYTES PERCENT AUTO 27 % (21-46); MONOCYTES ABSOLUTE AUTO 0.63 K/mm3 (0.16-1.47); MONOCYTES PERCENT AUTO 6 % (4-13); Mean Corpuscular HGB 21.1 pg (26.0-34.0); Mean Corpuscular HGB Conc 29.7 g/dL (31.5-36.5); Mean Corpuscular Volume 71 fL (80-100); NEUTROPHILS ABSOLUTE AUTO 7.03 K/mm3 (1.96-9.15); NEUTROPHILS PERCENT AUTO 64 % (41-73); NRBC ABSOLUTE 1.89 K/mm3 (0.00-0.02); NRBC Auto 17.2 /100 WBC (0.0-0.2); Platelet Count 163 K/mm3 (150-400); RDW Coefficient Variation 26.2 % (11.7-14.2); RDW Standard Deviation 63.4 fL (35.1-46.3); White Blood Cell Count 10.97 K/mm3 (4.00-11.30)
[2020-12-10 05:46] LABS: Albumin, Blood 2.3 g/dL (3.4-5.0); Anion Gap 9 mmol/L (6-16); Blood Urea Nitrogen 55 mg/dL (8-24); Bun/Creatinine Ratio 28.8 (12.0-20.0); CO2, Blood 24 mmol/L (21-32); Calcium, Blood 7.7 mg/dL (8.5-10.1); Chloride, Blood 97 mmol/L (98-108); Creatinine, Blood 1.91 mg/dL (0.60-1.20); Glomerular Filtration Rate 39 (60-); Glucose, Blood 141 mg/dL (70-99); Magnesium, Blood 2.6 mg/dL (1.6-2.4); Phosphorus, Blood 4.2 mg/dL (2.5-4.9); Potassium, Blood 3.4 mmol/L (3.5-5.5); Sodium, Blood 130 mmol/L (136-145)
[2020-12-10] MEDS ORDERED: ASPI81CH PO (10:07)
[2020-12-10] MEDS ORDERED: Acetaminophen325 M1 PO (10:07)
[2020-12-10] MEDS ORDERED: LOSA25 PO (10:07)
[2020-12-10] MEDS ORDERED: HUMALOG KW100 UNIT/1 SC (10:08)
[2020-12-10] MEDS ORDERED: AZO CRANBERRY PO (10:08)
[2020-12-10] MEDS ORDERED: ONDA4 PO (10:09)
[2020-12-10] MEDS ORDERED: PREG150 PO (10:09)
[2020-12-10] MEDS ORDERED: METO25ER PO (10:09)
[2020-12-10] MEDS ORDERED: POTCHL20ER PO (10:09)
[2020-12-10] MEDS ORDERED: LACRI-LUBE BOTHEYES (10:10)
[2020-12-10 12:41] LABS: Influenza A, PCR NEGATIVE (NEGATIVE); Influenza B, PCR NEGATIVE (NEGATIVE); Resp Syncytial Virus, PCR NEGATIVE (NEGATIVE); SARS-Cov-2 (COVID-19) PCR, MMC NEGATIVE (NEGATIVE)
--- NOTE | 2020-12-10 14:46 | NUR ---
GAVE REPORT TO RICHARD THOMPSON AT [facility]
--- NOTE | 2020-12-10 15:00 | NUR ---
PT DISCHARGED TO [facility]. IV DC'D. PT DENIES ANY CONCERNS. REPORT GIVEN TO NURSE RAMOS AND PACKET WITH THE TRANSPORTER. PT DRESSING WAS CHANGED TODAY ON HIS BLE. WAS AT BEDSIDE DURING DISCHARDE. VALUABLE WITH PT AND .
== END 2020-12-10 15:00 | DRG 291 ==
LOC: ER 12:21 → MEDS 12:22
PROVIDERS: Physician Assistant; ADMIT Family Medicine
DX: I13.0 Hypertensive heart and chronic kidney disease with heart failure and stage 1 through stage 4 chronic kidney disease, or unspecified chronic kidney disease (principal); I50.43 Acute on chronic combined systolic (congestive) and diastolic (congestive) heart failure; E87.1 Hypo-osmolality and hyponatremia; N18.30 Chronic kidney disease, stage 3 unspecified; E11.22 Type 2 diabetes mellitus with diabetic chronic kidney disease; K74.60 Unspecified cirrhosis of liver; I48.0 Paroxysmal atrial fibrillation; E66.01 Morbid (severe) obesity due to excess calories; S81.809A Unspecified open wound, unspecified lower leg, initial encounter; Z20.822 Contact with and (suspected) exposure to COVID-19; G51.0 Bell's palsy; I27.20 Pulmonary hypertension, unspecified; I25.10 Atherosclerotic heart disease of native coronary artery without angina pectoris; I08.3 Combined rheumatic disorders of mitral, aortic and tricuspid valves; J44.9 Chronic obstructive pulmonary disease, unspecified; M19.90 Unspecified osteoarthritis, unspecified site; Z68.27 Body mass index [BMI] 27.0-27.9, adult; I25.2 Old myocardial infarction; Z79.01 Long term (current) use of anticoagulants; Z87.891 Personal history of nicotine dependence; Z79.4 Long term (current) use of insulin
CPT/HCPCS: 0241U; 36415; 71045; 80053; 80069; 82947; 83690; 83735; 83880; 84145; 84443; 84484; 85025; 93005; 93010; 93308; 93321; 96365; 96372; 97110; 97112; 97116; 97163; 99285-25; A9270; A9270-GY; G0378; J0690; J1650; J7050

== ENCOUNTER 2021-04-15 01:38 | Day surgery (SDC) | payer OTHER ==
[~2021-04-15 01:38] MED LIST changes: +ASPI81CH PO; +AZO CRANBERRY PO; +Acetaminophen325 M1 PO; +BUMETANIDE2 M2 PO; +CEPH250A PO; +FURO40 PO; +HUMALOG KW100 UNIT/1 SC; +LACRI-LUBE BOTHEYES; +LOSA25 PO; +MUPIROCIN1 G1 TOP; +Midodrine HCl2.5 MG PO; +NYSTATIN100000 UNI SS; +ONDA4 PO; +POTCHL20ER PO
== END 2021-04-15 23:05 | disposition home or self-care (01) ==
LOC: WOUND 01:38
DX: E11.622 Type 2 diabetes mellitus with other skin ulcer (principal); L97.822 Non-pressure chronic ulcer of other part of left lower leg with fat layer exposed; I50.84 End stage heart failure; Z91.040 Latex allergy status
CPT/HCPCS: A9270; G0463

== ENCOUNTER 2021-04-29 03:16 | Day surgery (SDC) | payer OTHER | END 2021-04-29 23:13 | disposition home or self-care (01) | LOC: WOUND 03:16 | DX: E11.622 Type 2 diabetes mellitus with other skin ulcer (principal); L97.822 Non-pressure chronic ulcer of other part of left lower leg with fat layer exposed; I50.84 End stage heart failure; Z88.8 Allergy status to other drugs, medicaments and biological substances | CPT/HCPCS: A9270 ==

== ENCOUNTER 2021-05-21 01:36 | Day surgery (SDC) | payer OTHER ==
[~2021-05-21] VITALS: Wt 95.9 kg
== END 2021-05-21 14:50 | disposition home or self-care (01) ==
LOC: ATC 01:36
DX: I50.23 Acute on chronic systolic (congestive) heart failure (principal); Z79.01 Long term (current) use of anticoagulants
CPT/HCPCS: 96365; J2916

== ENCOUNTER 2021-05-28 04:03 | Day surgery (SDC) | payer OTHER ==
[~2021-05-28 04:03] MED LIST changes: +APAP500 MG PO; -ASPI81CH PO; -Acetaminophen325 M1 PO; +Aspir 8181 MG PO; -HUMALOG KW100 UNIT/1 SC; +NOVOLOG FL100 UNIT/3 SC; +SPIR25 PO; -SPIR50 PO
== END 2021-05-28 15:20 | disposition home or self-care (01) ==
LOC: ATC 04:03
DX: I13.0 Hypertensive heart and chronic kidney disease with heart failure and stage 1 through stage 4 chronic kidney disease, or unspecified chronic kidney disease (principal); I50.23 Acute on chronic systolic (congestive) heart failure; N18.30 Chronic kidney disease, stage 3 unspecified; E11.22 Type 2 diabetes mellitus with diabetic chronic kidney disease; I25.10 Atherosclerotic heart disease of native coronary artery without angina pectoris; E78.5 Hyperlipidemia, unspecified; J45.909 Unspecified asthma, uncomplicated; Z91.040 Latex allergy status; Z79.01 Long term (current) use of anticoagulants; Z79.4 Long term (current) use of insulin; Z79.899 Other long term (current) drug therapy
CPT/HCPCS: 96365; J2916

== ENCOUNTER 2021-05-30 14:12 | Inpatient (IN) | payer OTHER ==
[~2021-05-30] VITALS: Ht 185.4 cm; Wt 90.5 kg
[2021-05-30 14:59] LABS: BASOPHILS ABSOLUTE AUTO 0.04 K/mm3 (0.00-0.23); BASOPHILS PERCENT AUTO 0 % (0-2); EOSINOPHILS ABSOLUTE AUTO 0.11 K/mm3 (0.00-0.68); EOSINOPHILS PERCENT AUTO 1 % (0-6); Hematocrit 32.6 % (37.0-53.0); Hemoglobin 10.5 g/dL (13.5-17.5); IMMATURE GRAN ABSOLUTE AUTO 0.05 K/mm3 (0.00-0.10); IMMATURE GRAN PERCENT AUTO 1 % (0-1); LYMPHOCYTES PERCENT AUTO 14 % (21-46); MONOCYTES ABSOLUTE AUTO 0.65 K/mm3 (0.16-1.47); MONOCYTES PERCENT AUTO 6 % (4-13); Mean Corpuscular HGB 25.5 pg (26.0-34.0); Mean Corpuscular HGB Conc 32.2 g/dL (31.5-36.5); Mean Corpuscular Volume 79 fL (80-100); Mean Platelet Volume 9.9 fL (9.1-12.4); NEUTROPHILS ABSOLUTE AUTO 7.89 K/mm3 (1.96-9.15); NEUTROPHILS PERCENT AUTO 78 % (41-73); Platelet Count 419 K/mm3 (150-400); RDW Coefficient Variation 16.9 % (11.7-14.2); RDW Standard Deviation 48.4 fL (35.1-46.3); Red Blood Cell Count 4.11 M/mm3 (4.30-5.90); White Blood Cell Count 10.14 K/mm3 (4.00-11.30)
[2021-05-30 15:22] LABS: Albumin, Blood 1.8 g/dL (3.4-5.0); Albumin/Globulin Ratio 0.3 (0.8-1.8); Bilirubin, Total 0.6 mg/dL (0.1-1.0); Bun/Creatinine Ratio 29.6 (12.0-20.0); Calcium, Blood 8.7 mg/dL (8.5-10.1); Creatinine, Blood 1.42 mg/dL (0.60-1.20); Globulin, Blood 5.3 g/dL (2.2-4.0); Potassium, Blood 3.5 mmol/L (3.5-5.5); Total Protein, Blood 7.1 g/dL (6.4-8.2)
[2021-05-30 15:44] LABS: Prothrombin Time Results 62.3 Sec (9.7-11.5)
[2021-05-30 15:54] LABS: International Normalized Ratio 6.72
[2021-05-30 20:13] LABS: International Normalized Ratio 6.11
[2021-05-30 22:38] LABS: Hematocrit 28.8 % (37.0-53.0); Hemoglobin 9.3 g/dL (13.5-17.5)
[2021-05-31 07:32] LABS: BASOPHILS ABSOLUTE AUTO 0.04 K/mm3 (0.00-0.23); BASOPHILS PERCENT AUTO 0 % (0-2); EOSINOPHILS ABSOLUTE AUTO 0.14 K/mm3 (0.00-0.68); EOSINOPHILS PERCENT AUTO 1 % (0-6); Hematocrit 34.2 % (37.0-53.0); IMMATURE GRAN ABSOLUTE AUTO 0.06 K/mm3 (0.00-0.10); IMMATURE GRAN PERCENT AUTO 1 % (0-1); LYMPHOCYTES ABSOLUTE AUTO 1.41 K/mm3 (0.84-5.20); LYMPHOCYTES PERCENT AUTO 12 % (21-46); MONOCYTES ABSOLUTE AUTO 0.66 K/mm3 (0.16-1.47); MONOCYTES PERCENT AUTO 6 % (4-13); Mean Corpuscular HGB 25.6 pg (26.0-34.0); Mean Corpuscular HGB Conc 32.2 g/dL (31.5-36.5); Mean Corpuscular Volume 80 fL (80-100); Mean Platelet Volume 9.4 fL (9.1-12.4); NEUTROPHILS ABSOLUTE AUTO 9.16 K/mm3 (1.96-9.15); NEUTROPHILS PERCENT AUTO 80 % (41-73); Platelet Count 418 K/mm3 (150-400); RDW Standard Deviation 49.4 fL (35.1-46.3); White Blood Cell Count 11.47 K/mm3 (4.00-11.30)
[2021-05-31 07:58] LABS: Prothrombin Time Results 62.6 Sec (9.7-11.5)
[2021-05-31 08:00] LABS: International Normalized Ratio 6.76
[2021-05-31 08:02] LABS: Alanine Aminotransfer (ALT/SGP 16 U/L (12-78); Albumin, Blood 1.7 g/dL (3.4-5.0); Albumin/Globulin Ratio 0.3 (0.8-1.8); Alk Phos 116 U/L (50-136); Anion Gap 9 mmol/L (6-16); Aspartate Aminotrans (AST/SGOT 13 U/L (12-37); Bilirubin, Total 0.5 mg/dL (0.1-1.0); Blood Urea Nitrogen 29 mg/dL (8-24); Bun/Creatinine Ratio 26.4 (12.0-20.0); CO2, Blood 24 mmol/L (21-32); Calcium, Blood 8.4 mg/dL (8.5-10.1); Chloride, Blood 104 mmol/L (98-108); Glomerular Filtration Rate >60 (60-); Glucose, Blood 232 mg/dL (70-99); Potassium, Blood 3.1 mmol/L (3.5-5.5); Sodium, Blood 137 mmol/L (136-145); Total Protein, Blood 6.7 g/dL (6.4-8.2)
[2021-05-31 14:09] LABS: Hematocrit 31.7 % (37.0-53.0); Hemoglobin 10.1 g/dL (13.5-17.5)
[2021-05-31 19:57] LABS: Hematocrit 30.7 % (37.0-53.0); Hemoglobin 9.9 g/dL (13.5-17.5)
--- NOTE | 2021-05-31 20:30 | NUR ---
PT ADMITTED TO ROOM ICU 15 FROM ED AT 2009. PT SLIDE TRANSFERRED TO BED WITH FOUR PERSON ASSIST. PT COMPLAINTS OF RIGHT LEG PAIN WHICH HE ATTRIBUTES TO GOUT PAIN IN HIS RIGHT KNEE. NOTED SOME EDEMA IN LEG WITH REDNESS. PT SWITCHED FROM BATTERY POWER FOR HIS LVAD TO WALL OUTLET. PT VERBALIZES VERY GOOD UNDERSTANDING OF HIS DEVICE. PT STATES THAT HE HAD BEEN A RESPIRATORY THERAPIST PRIOR TO CARDIAC ISSUES. PT HAS HAD DIFFICULTY IN OBTAINING BLOOD PRESSURES WHILE IN ED. WILL DO SPOT DOPPLER PRESSURES. PT DOES HAVE SMALL BOWEL MOVEMENT THAT HAS SOME LIGHT TINGE OF BLOOD. WILL REVIEW CHART AND PLAN OF CARE FOR THIS PT.
[2021-05-31] MEDS ORDERED: TORSE20 PO (20:41)
[2021-05-31] MEDS ORDERED: OMEP20ER PO (20:43)
[2021-05-31] MEDS ORDERED: ENTRESTO 24 MG1 EAC2 PO (20:47)
[2021-05-31] MEDS ORDERED: TRAM50 PO (20:51)
[2021-06-01 05:22] LABS: BASOPHILS ABSOLUTE AUTO 0.04 K/mm3 (0.00-0.23); BASOPHILS PERCENT AUTO 0 % (0-2); EOSINOPHILS ABSOLUTE AUTO 0.17 K/mm3 (0.00-0.68); EOSINOPHILS PERCENT AUTO 2 % (0-6); Hemoglobin 9.8 g/dL (13.5-17.5); IMMATURE GRAN ABSOLUTE AUTO 0.04 K/mm3 (0.00-0.10); IMMATURE GRAN PERCENT AUTO 0 % (0-1); LYMPHOCYTES ABSOLUTE AUTO 1.82 K/mm3 (0.84-5.20); LYMPHOCYTES PERCENT AUTO 18 % (21-46); MONOCYTES ABSOLUTE AUTO 0.63 K/mm3 (0.16-1.47); MONOCYTES PERCENT AUTO 6 % (4-13); Mean Corpuscular HGB 25.7 pg (26.0-34.0); Mean Corpuscular HGB Conc 32.7 g/dL (31.5-36.5); Mean Corpuscular Volume 79 fL (80-100); Mean Platelet Volume 9.3 fL (9.1-12.4); NEUTROPHILS ABSOLUTE AUTO 7.65 K/mm3 (1.96-9.15); NEUTROPHILS PERCENT AUTO 74 % (41-73); Platelet Count 399 K/mm3 (150-400); RDW Coefficient Variation 16.8 % (11.7-14.2); RDW Standard Deviation 48.1 fL (35.1-46.3); Red Blood Cell Count 3.82 M/mm3 (4.30-5.90); White Blood Cell Count 10.35 K/mm3 (4.00-11.30)
[2021-06-01 05:43] LABS: Prothrombin Time Results 80.1 Sec (9.7-11.5)
[2021-06-01 05:48] LABS: Albumin, Blood 1.5 g/dL (3.4-5.0); Anion Gap 7 mmol/L (6-16); Blood Urea Nitrogen 14 mg/dL (8-24); Bun/Creatinine Ratio 17.6 (12.0-20.0); CO2, Blood 23 mmol/L (21-32); Calcium, Blood 8.4 mg/dL (8.5-10.1); Chloride, Blood 107 mmol/L (98-108); Glomerular Filtration Rate >60 (60-); Glucose, Blood 160 mg/dL (70-99); Sodium, Blood 137 mmol/L (136-145)
[2021-06-01 05:49] LABS: International Normalized Ratio 8.79
--- NOTE | 2021-06-01 06:34 | NUR ---
PT HAS HAD SEVERAL STOOLS THIS NIGHT WITH SOME BLOOD TINGING. NOTED: INR HAS INCREASED TO 8.79. HGB REMAINED STEADY. CALL MADE TO DR PERALTA WITH INFORMATION ON LABS. ORDERS RECEIVED. PT HAS VOICED AT TIMES ABOUT WANTING TO JUST GO HOME AND NOT STAYING TO CONTINUE WITH CURRENT TREATMENT. PALLIATIVE CARE CONSULT PLACED. PT STATES THAT HE IS BEING CONSIDERED FOR HEART TRANSPLANT BUT NEEDS TO HAVE WOUND ON HIS LEGS RESOLVED. PT STATES HE HAS AN UPCOMING APPT WITH ORTHOPEDIC MD. PT CONTINUES ON PROTONIX DRIP. WILL CONTINUE TO MONITOR PT, AND WILL REPORT OFF TO ONCOMING RN.
--- NOTE | 2021-06-01 07:30 | NUR ---
Receieved report from Keegan THOMPSON. Patient is awake and sitting up in bed and is able to communicate his needs. He has LVAD and is pugged into wall with green light on, batteries on counter. He has 18ga PowerGlide LAURA and is infusingn Protonix at 10 ml/hr, he also has 20ga IV to RH. He is on Ra and sats >90%. He is able to MAEW but weak. Systolic by doppler 70-80's. Palliative care consulted. Dr Hoff by and will see patient.
--- NOTE | 2021-06-01 09:30 | NUR ---
Dr Hoff continues to want transfer to [facility]. They called back and is calling Dr Hoff. He tolerated PO med with water applesauce. Doppler 80 systolic. No other significant changes.
--- NOTE | 2021-06-01 11:51 | NUR ---
Pal Care referral received this am with VM received that pt was expressing desire to forego treatment and did not want to return to [facility] for treatment of GI bleed with hx of LVAD placement. Visit made to pt after case conferencing with his [facility] and his PCP. Dr Powell made a joint visit with me to the bedside. Pt was admitted during noc with GI bleed complicated by his cardiac status, medications and LVAD placement. Pt tells me this is his third GI bleed since LVAD was placed and he has spent months at [facility] previously, isolated & fearful that he would never be able to leave and see family again. He is tearful, expressing being scared to go north, fearing he will be "stuck" there again and not able to leave. Adding to his fear and grief is the concern for his , home alone, suffering with early stages of dementia per Hesham. When asked about family support and proxy decision makers for himself and his , he states he has a son in [place] but no family here locally and no support for at home, when he is gone. He acknowledges that he feels his prognosis and life span is limited. We discussed options, including that if he were to decline treatment at this time, his prognosis and time may be extremely limited. Pt verbalized he is not ready for that and wants to live longer if he can. We further discussed care options, going to [facility] to see what could be offered there, supported and listened to pt's concerns. I explained that no plan would be written in stone & his needs/wishes/input reviewed regularly and that he and his son could change the goals/direction of his care at any time. Pt relieved to know that and states he is willing to consider any options offered to him at this time, including returning to [facility] and pursuing treatment options there. We encouraged him to continue expressing fears, quesitons, doubts to help clarify his tx goals/plans so he could continue to make the best decisions he can for himself. Report on my visit called to Dr Hoff. She states [facility] has pt on their priority list and will transfer him today if a bed becomes available. I passed this on to Hesham, who expressed appreciation for our visit and conversation. Plan to revisit pt if he remains at [facility] tomorrow.
[2021-06-01 14:39] LABS: Hematocrit 31.2 % (37.0-53.0); Hemoglobin 9.7 g/dL (13.5-17.5)
--- NOTE | 2021-06-01 20:00 | NUR ---
ASSUMED CARE OF PT AT 1915. REPORT RECEIVED. PT PRESENTS IN BED. ALERT AND ORIENTED. OCCASSIONALY TEARFUL SPEAKING ABOUT HIS CURRENT HEALTH STATUS AND HAVING A AT HOME THAT IS NEEDING SOME ASSIST WITH HER CARE. ACKNOWLEDGED FEELINGS AND CONCERNS. VALIDATED WHERE APPROPRIATE. PROVIDED PT CLEAR ENSURE SUPPLEMENT TO HELP WITH HIS NUTRITIONAL VOICED CONCERNS. BEING ON CLEAR LIQUID DIET. LVAD PLUGGED INTO WALL OUTLET. WILL REVIEW CHART AND PLAN OF CARE FOR THIS PT. WILL DO DOPPLER BLOOD PRESSURES.
[2021-06-01 20:19] LABS: Hematocrit 30.8 % (37.0-53.0); Hemoglobin 9.9 g/dL (13.5-17.5)
--- NOTE | 2021-06-02 | NUR ---
PT CONTINUES WITH LVAD. BLOOD PRESSURES DONE WITH DOPPLER. OBTAINING ONLY SBP. 90-94. PT STATES THAT THESE ARE ACTUALLY GOOD FOR HIM WHEREAS HE NORMALLY RUNS LOWER. PT STATES THAT HE STILL IS HAVING SOME DISCOMFORT IN HIS LOWER EXTREMITIES. HAS BEEN OPEN ABOUT HIS CONVERSATION WITH PALLIATIVE CARE DURING THE DAY. HAS BEEN SOMEWHAT TEARFUL EARLIER WHILE DISCUSSING HIS PROGNOSIS AND HIS CONDITION IT RELATES TO HIS . VALIDATED PT'S FEELINGS. ALLOWED HIM TO VERBALIZE HIS CONCERNS.
--- NOTE | 2021-06-02 00:50 | NUR ---
CALL RECEIVED FROM MATTHEW TRAVEL ASSISTANT AT [facility]. BED ASSIGNMENT RECEIVED 11K RM 25 BED 1 WITH REPORT NUMBER [phone]. NEED TO WAIT UNTIL AFTER 0630 FOR TRANSFER
--- NOTE | 2021-06-02 02:25 | NUR ---
PT RECEIVES BED AT [facility]. PER [place] REQUEST, PT IS TO BE TRANSFERRED AFTER 0630 IN AM. WILL MAKE APPROPRIATE ARRANGEMENTS. PT HAS BEEN RESTING IN BED. DOES CALL FOR NEEDS. WILL CONTINUE TO MONITOR.
[2021-06-02 03:44] LABS: BASOPHILS ABSOLUTE AUTO 0.04 K/mm3 (0.00-0.23); BASOPHILS PERCENT AUTO 0 % (0-2); EOSINOPHILS ABSOLUTE AUTO 0.26 K/mm3 (0.00-0.68); EOSINOPHILS PERCENT AUTO 2 % (0-6); Hematocrit 32.6 % (37.0-53.0); Hemoglobin 10.5 g/dL (13.5-17.5); IMMATURE GRAN ABSOLUTE AUTO 0.08 K/mm3 (0.00-0.10); IMMATURE GRAN PERCENT AUTO 1 % (0-1); LYMPHOCYTES ABSOLUTE AUTO 2.31 K/mm3 (0.84-5.20); LYMPHOCYTES PERCENT AUTO 17 % (21-46); MONOCYTES PERCENT AUTO 6 % (4-13); Mean Corpuscular HGB 25.7 pg (26.0-34.0); Mean Corpuscular HGB Conc 32.2 g/dL (31.5-36.5); Mean Corpuscular Volume 80 fL (80-100); Mean Platelet Volume 9.1 fL (9.1-12.4); NEUTROPHILS ABSOLUTE AUTO 9.98 K/mm3 (1.96-9.15); NEUTROPHILS PERCENT AUTO 74 % (41-73); Platelet Count 376 K/mm3 (150-400); RDW Coefficient Variation 16.9 % (11.7-14.2); Red Blood Cell Count 4.08 M/mm3 (4.30-5.90); White Blood Cell Count 13.47 K/mm3 (4.00-11.30)
[2021-06-02 04:00] LABS: Albumin, Blood 1.5 g/dL (3.4-5.0); Anion Gap 5 mmol/L (6-16); Blood Urea Nitrogen 7 mg/dL (8-24); Bun/Creatinine Ratio 9.4 (12.0-20.0); CO2, Blood 26 mmol/L (21-32); Calcium, Blood 8.2 mg/dL (8.5-10.1); Chloride, Blood 104 mmol/L (98-108); Creatinine, Blood 0.74 mg/dL (0.60-1.20); Glomerular Filtration Rate >60 (60-); Glucose, Blood 125 mg/dL (70-99); Phosphorus, Blood 2.1 mg/dL (2.5-4.9); Potassium, Blood 3.1 mmol/L (3.5-5.5); Sodium, Blood 135 mmol/L (136-145)
[2021-06-02 04:13] LABS: International Normalized Ratio 7.85
--- NOTE | 2021-06-02 05:28 | NUR ---
PT HAS BEEN ABLE TO REST SOME THIS NIGHT. HAS BEEN INFORMED THAT BED HAS BEEN ASSIGNED AT [facility]. PT STATES THAT HE IS HAPPY THAT HE WILL GET HIS TRANSFER TO [facility]. PT HAS FOUR BATTERIES FOR TRANSFER. PT HAS SEVERAL STOOLS THIS NIGHT. GREEN IN COLOR. NO LEONILA BLOOD IN STOOL. CALL MADE TO DR PERALTA SECONDARY TO THIS AM'S LABS. ORDERS RECEIVED. WILL CONTINUE TO MONITOR PT, AND WILL REPORT OFF TO ONCOMING RN.
--- NOTE | 2021-06-02 09:06 | NUR ---
PT TRANSFERRED TO [facility] BY [facility] AT 0730. REPORT CALLED TO [facility] AT 0900. WILL CALL SO TO INFORM AT 0930 PER PT. ALL BELONGINGS, BATTERY AND CHARGERS SENT c PT.
== END 2021-06-02 07:35 | disposition short-term general hospital (02) | DRG 813 ==
LOC: ER 14:12 → ERHOLD 14:13 → ICUW 05-31 15:27 → ERHOLD 05-31 15:27 → ICUW 05-31 20:01 → MEDS 06-01 22:00 → ICUW 06-01 22:19
PROVIDERS: Emergency Medicine; ADMIT Family Medicine
DX: D68.32 Hemorrhagic disorder due to extrinsic circulating anticoagulants (principal); D62 Acute posthemorrhagic anemia; I13.0 Hypertensive heart and chronic kidney disease with heart failure and stage 1 through stage 4 chronic kidney disease, or unspecified chronic kidney disease; K92.2 Gastrointestinal hemorrhage, unspecified; T45.515A Adverse effect of anticoagulants, initial encounter; I50.9 Heart failure, unspecified; E11.9 Type 2 diabetes mellitus without complications; E78.5 Hyperlipidemia, unspecified; E83.39 Other disorders of phosphorus metabolism; I48.0 Paroxysmal atrial fibrillation; Z98.890 Other specified postprocedural states; Z88.8 Allergy status to other drugs, medicaments and biological substances; J44.9 Chronic obstructive pulmonary disease, unspecified; I25.2 Old myocardial infarction; Z79.899 Other long term (current) drug therapy; Z79.4 Long term (current) use of insulin; Z79.82 Long term (current) use of aspirin; N18.30 Chronic kidney disease, stage 3 unspecified
CPT/HCPCS: 36415; 80053; 80069; 82272; 82947; 84132; 85014; 85018; 85025; 85610; 93971; 96374; 96376; 99285-25; A9270; C1751; C9113; G0378; J1815; J3480; J7030; J7060

== ENCOUNTER 2021-06-09 13:14 | Inpatient (IN) | payer OTHER ==
[~2021-06-09] VITALS: Ht 185.4 cm; Wt 84.0 kg
[~2021-06-09 13:14] MED LIST changes: +ENTRESTO 24 MG1 EAC2 PO; +OMEP20ER PO; +TORSE20 PO; +TRAM50 PO
[2021-06-09 13:44] LABS: BASOPHILS ABSOLUTE AUTO 0.03 K/mm3 (0.00-0.23); BASOPHILS PERCENT AUTO 0 % (0-2); EOSINOPHILS ABSOLUTE AUTO 0.01 K/mm3 (0.00-0.68); EOSINOPHILS PERCENT AUTO 0 % (0-6); Hemoglobin 11.8 g/dL (13.5-17.5); IMMATURE GRAN ABSOLUTE AUTO 0.14 K/mm3 (0.00-0.10); IMMATURE GRAN PERCENT AUTO 1 % (0-1); LYMPHOCYTES ABSOLUTE AUTO 1.38 K/mm3 (0.84-5.20); LYMPHOCYTES PERCENT AUTO 8 % (21-46); MONOCYTES ABSOLUTE AUTO 0.88 K/mm3 (0.16-1.47); MONOCYTES PERCENT AUTO 5 % (4-13); Mean Corpuscular HGB 25.3 pg (26.0-34.0); Mean Corpuscular HGB Conc 31.1 g/dL (31.5-36.5); Mean Corpuscular Volume 82 fL (80-100); Mean Platelet Volume 8.8 fL (9.1-12.4); NEUTROPHILS ABSOLUTE AUTO 15.14 K/mm3 (1.96-9.15); NEUTROPHILS PERCENT AUTO 86 % (41-73); Platelet Count 395 K/mm3 (150-400); RDW Coefficient Variation 18.5 % (11.7-14.2); RDW Standard Deviation 51.9 fL (35.1-46.3); Red Blood Cell Count 4.66 M/mm3 (4.30-5.90); White Blood Cell Count 17.58 K/mm3 (4.00-11.30)
[2021-06-09 14:11] LABS: Albumin, Blood 2.2 g/dL (3.4-5.0); Albumin/Globulin Ratio 0.5 (0.8-1.8); Bilirubin, Total 0.4 mg/dL (0.1-1.0); Bun/Creatinine Ratio 16.9 (12.0-20.0); Calcium, Blood 8.7 mg/dL (8.5-10.1); Creatinine, Blood 1.54 mg/dL (0.60-1.20); Globulin, Blood 4.8 g/dL (2.2-4.0); Potassium, Blood 4.4 mmol/L (3.5-5.5)
[2021-06-09 16:21] LABS: International Normalized Ratio 1.67
[2021-06-09 17:47] LABS: Influenza A, PCR NEGATIVE (NEGATIVE); Influenza B, PCR NEGATIVE (NEGATIVE); Resp Syncytial Virus, PCR NEGATIVE (NEGATIVE); SARS-Cov-2 (COVID-19) PCR, MMC NEGATIVE (NEGATIVE)
[2021-06-09] MEDS ORDERED: DULO30 PO (19:19)
[2021-06-09] MEDS ORDERED: Calcium Carbon500 MG PO (19:21)
[2021-06-09] MEDS ORDERED: JARDIANCE25 MG PO (19:37)
[2021-06-09] MEDS ORDERED: EZET10 PO (19:38)
[2021-06-09] MEDS ORDERED: GABA300 PO (19:39)
[2021-06-09] MEDS ORDERED: MELATONIN5 M1 PO (19:41)
[2021-06-09] MEDS ORDERED: DULCOLAX400 MG/5 M PO (19:41)
[2021-06-09] MEDS ORDERED: OXYC5 PO (19:43)
[2021-06-09] MEDS ORDERED: Vitamin K100 MCG PO (19:44)
[2021-06-09] MEDS ORDERED: SPIR25 PO (19:45)
[2021-06-09] MEDS ORDERED: ENTRESTO 24 MG1 EACH PO (19:45)
[2021-06-09] MEDS ORDERED: WARF5 PO (19:47)
[2021-06-09] MEDS ORDERED: ASCO500 PO (21:11)
[2021-06-09] MEDS ORDERED: Hair, Skin & N1 EACH PO (21:21)
[2021-06-09] MEDS ORDERED: ZINC220 PO (21:23)
[2021-06-09 21:57] LABS: International Normalized Ratio 1.58; Prothrombin Time Results 16.1 Sec (9.7-11.5)
[2021-06-10] MEDS ORDERED: SPIR50 PO (01:24)
--- NOTE | 2021-06-10 04:02 | NUR ---
[facility] UPDATE SPOKE TO RN FROM [facility] AND GAVE UPDATE ON THE PT. THIS RN DID TELL THE RN THAT THE PT IS CURRENTLY EXPRESSING HIS INTENTIONS TO REFUSE TRANSPORT BUT THAT HE HAD NOT MADE AN OFFICAL DECESION. THE RN SAID THAT THEY WOULD KEEP HIM ON THEIR LIST BUT WOULD LIKE TO KNOW SOON POSSIBLE IF HE IS GOING TO REFUSE TRANSPORT.
[2021-06-10 04:09] LABS: BASOPHILS ABSOLUTE AUTO 0.04 K/mm3 (0.00-0.23); BASOPHILS PERCENT AUTO 0 % (0-2); EOSINOPHILS ABSOLUTE AUTO 0.11 K/mm3 (0.00-0.68); EOSINOPHILS PERCENT AUTO 1 % (0-6); Hematocrit 33.7 % (37.0-53.0); Hemoglobin 10.8 g/dL (13.5-17.5); IMMATURE GRAN ABSOLUTE AUTO 0.12 K/mm3 (0.00-0.10); IMMATURE GRAN PERCENT AUTO 1 % (0-1); LYMPHOCYTES ABSOLUTE AUTO 2.02 K/mm3 (0.84-5.20); LYMPHOCYTES PERCENT AUTO 12 % (21-46); MONOCYTES ABSOLUTE AUTO 1.12 K/mm3 (0.16-1.47); MONOCYTES PERCENT AUTO 7 % (4-13); Mean Corpuscular HGB 25.1 pg (26.0-34.0); Mean Corpuscular Volume 78 fL (80-100); NEUTROPHILS ABSOLUTE AUTO 13.15 K/mm3 (1.96-9.15); NEUTROPHILS PERCENT AUTO 79 % (41-73); Platelet Count 355 K/mm3 (150-400); RDW Coefficient Variation 18.3 % (11.7-14.2); RDW Standard Deviation 49.3 fL (35.1-46.3); Red Blood Cell Count 4.31 M/mm3 (4.30-5.90); White Blood Cell Count 16.56 K/mm3 (4.00-11.30)
[2021-06-10 04:24] LABS: International Normalized Ratio 1.61; Prothrombin Time Results 16.4 Sec (9.7-11.5)
[2021-06-10 04:29] LABS: Anion Gap 8 mmol/L (6-16); Blood Urea Nitrogen 27 mg/dL (8-24); Bun/Creatinine Ratio 22.1 (12.0-20.0); CO2, Blood 25 mmol/L (21-32); Calcium, Blood 8.5 mg/dL (8.5-10.1); Chloride, Blood 97 mmol/L (98-108); Creatinine, Blood 1.22 mg/dL (0.60-1.20); Glomerular Filtration Rate >60 (60-); Glucose, Blood 368 mg/dL (70-99); Potassium, Blood 3.9 mmol/L (3.5-5.5); Sodium, Blood 130 mmol/L (136-145)
--- NOTE | 2021-06-10 05:28 | NUR ---
STAMP MACHINE SERVICER SUMMARY PT IS AXO X4 THIS SHIFT. PT'S BP HAS HAD A MAP OF 85 AND 80 BY DOPPLER THIS SHIFT. PT HAS REMAINED AFEBRILE THIS SHIFT. PT REPORTS STOMACH DISCOMFORT BUT DID NOT HAVE A BM THIS SHIFT. PT IS REPORTING THAT HE IS GOING TO REFUSE TRANSPORT TO [facility] AND REQUEST OUPATIENT TX LOCALLY. WILL REPORT TO ONCOMING RN.
--- NOTE | 2021-06-10 14:58 | NUR ---
CARE PROVIDED TODAY BY STUDENT NURSE. ASSESMENTS REVIEWED BY THIS RN. COBRA TRANSFER TO [facility] WITH LVAD EQUIPMENT AND PERSONAL BELONGINGS. REPORT TO LVAD TEAM AT [facility].
== END 2021-06-10 14:14 | disposition short-term general hospital (02) | DRG 872 ==
LOC: ER 13:14 → PCU 23:04
PROVIDERS: Emergency Medicine; Family Medicine; Physician Assistant; ADMIT Internal Medicine
DX: A41.52 Sepsis due to Pseudomonas (principal); M00.861 Arthritis due to other bacteria, right knee; I13.0 Hypertensive heart and chronic kidney disease with heart failure and stage 1 through stage 4 chronic kidney disease, or unspecified chronic kidney disease; I50.22 Chronic systolic (congestive) heart failure; E87.2 Acidosis; Z20.822 Contact with and (suspected) exposure to COVID-19; R65.20 Severe sepsis without septic shock; R19.7 Diarrhea, unspecified; S14.107S Unspecified injury at C7 level of cervical spinal cord, sequela; I48.0 Paroxysmal atrial fibrillation; I27.20 Pulmonary hypertension, unspecified; E11.22 Type 2 diabetes mellitus with diabetic chronic kidney disease; N18.30 Chronic kidney disease, stage 3 unspecified; J44.9 Chronic obstructive pulmonary disease, unspecified; K74.60 Unspecified cirrhosis of liver; D63.1 Anemia in chronic kidney disease; G51.0 Bell's palsy; I25.2 Old myocardial infarction; Z87.891 Personal history of nicotine dependence; Z88.8 Allergy status to other drugs, medicaments and biological substances; Z98.890 Other specified postprocedural states
CPT/HCPCS: 0241U; 36415; 80048; 80053; 82947; 83605; 85025; 85610; 85651; 86140; 87040; 96365; 96366; 96367; 99285-25; A9270; J0692; J1815; J3370; J7050

== ENCOUNTER → 2021-09-14 | Outpatient (CLI) | payer OTHER ==
[~2021-09-14] MED LIST changes: +ASCO500 PO; +Calcium Carbon500 MG PO; +DULCOLAX400 MG/5 M PO; +DULO30 PO; +ENTRESTO 24 MG1 EACH PO; +GABA300 PO; +Hair, Skin & N1 EACH PO; +MELATONIN5 M1 PO; +OXYC5 PO; +SPIR50 PO; +Vitamin K100 MCG PO; +WARF5 PO; +ZINC220 PO
[2021-09-14 13:41] LABS: International Normalized Ratio 2.37; Prothrombin Time Results 23.5 Sec (9.7-11.5)
[2021-09-14 13:43] LABS: BASOPHILS ABSOLUTE AUTO 0.09 K/mm3 (0.00-0.23); BASOPHILS PERCENT AUTO 1 % (0-2); EOSINOPHILS ABSOLUTE AUTO 0.17 K/mm3 (0.00-0.68); EOSINOPHILS PERCENT AUTO 2 % (0-6); Hematocrit 35.5 % (37.0-53.0); Hemoglobin 10.8 g/dL (13.5-17.5); IMMATURE GRAN ABSOLUTE AUTO 0.03 K/mm3 (0.00-0.10); IMMATURE GRAN PERCENT AUTO 0 % (0-1); LYMPHOCYTES ABSOLUTE AUTO 1.78 K/mm3 (0.84-5.20); LYMPHOCYTES PERCENT AUTO 17 % (21-46); MONOCYTES ABSOLUTE AUTO 0.76 K/mm3 (0.16-1.47); MONOCYTES PERCENT AUTO 7 % (4-13); Mean Corpuscular HGB 24.8 pg (26.0-34.0); Mean Corpuscular HGB Conc 30.4 g/dL (31.5-36.5); Mean Corpuscular Volume 81 fL (80-100); Mean Platelet Volume 9.6 fL (9.1-12.4); NEUTROPHILS ABSOLUTE AUTO 7.68 K/mm3 (1.96-9.15); NEUTROPHILS PERCENT AUTO 73 % (41-73); Platelet Count 356 K/mm3 (150-400); RDW Coefficient Variation 17.1 % (11.7-14.2); RDW Standard Deviation 50.8 fL (35.1-46.3); Red Blood Cell Count 4.36 M/mm3 (4.30-5.90); White Blood Cell Count 10.51 K/mm3 (4.00-11.30)
[2021-09-14 20:08] LABS: Alanine Aminotransfer (ALT/SGP 16 U/L (12-78); Albumin, Blood 2.7 g/dL (3.4-5.0); Albumin/Globulin Ratio 0.6 (0.8-1.8); Alk Phos 124 U/L (50-136); Anion Gap 6 mmol/L (6-16); Aspartate Aminotrans (AST/SGOT 10 U/L (12-37); Bilirubin, Total 0.4 mg/dL (0.1-1.0); Blood Urea Nitrogen 9 mg/dL (8-24); CO2, Blood 29 mmol/L (21-32); Calcium, Blood 8.8 mg/dL (8.5-10.1); Chloride, Blood 104 mmol/L (98-108); Creatinine, Blood 0.69 mg/dL (0.60-1.20); Globulin, Blood 4.2 g/dL (2.2-4.0); Glomerular Filtration Rate >60 (60-); Glucose, Blood 89 mg/dL (70-99); Lactate Dehydrogenase (Ld),Bld 199 U/L (100-240); Potassium, Blood 4.3 mmol/L (3.5-5.5); Sodium, Blood 139 mmol/L (136-145); Total Protein, Blood 6.9 g/dL (6.4-8.2)
== END | disposition home or self-care (01) ==
LOC: LAB SHORT 11:32
PROVIDERS: Internal Medicine Cardiovascular Disease
DX: I50.22 Chronic systolic (congestive) heart failure (principal)
CPT/HCPCS: 80053; 83615; 85025; 85610

== ENCOUNTER → 2021-09-23 | Outpatient (CLI) | payer OTHER ==
[2021-09-23 15:48] LABS: Alanine Aminotransfer (ALT/SGP 13 U/L (12-78); Albumin, Blood 2.6 g/dL (3.4-5.0); Albumin/Globulin Ratio 0.5 (0.8-1.8); Alk Phos 139 U/L (50-136); Anion Gap 6 mmol/L (6-16); Aspartate Aminotrans (AST/SGOT 8 U/L (12-37); Bilirubin, Total 0.3 mg/dL (0.1-1.0); Blood Urea Nitrogen 10 mg/dL (8-24); Bun/Creatinine Ratio 14.7 (12.0-20.0); CO2, Blood 24 mmol/L (21-32); Calcium, Blood 8.8 mg/dL (8.5-10.1); Chloride, Blood 105 mmol/L (98-108); Creatinine, Blood 0.68 mg/dL (0.60-1.20); Glomerular Filtration Rate >60 (60-); Glucose, Blood 387 mg/dL (70-99); Lactate Dehydrogenase (Ld),Bld 227 U/L (100-240); Potassium, Blood 3.9 mmol/L (3.5-5.5); Sodium, Blood 135 mmol/L (136-145); Total Protein, Blood 7.6 g/dL (6.4-8.2)
[2021-09-23 15:53] LABS: BASOPHILS ABSOLUTE AUTO 0.08 K/mm3 (0.00-0.23); BASOPHILS PERCENT AUTO 1 % (0-2); EOSINOPHILS ABSOLUTE AUTO 0.18 K/mm3 (0.00-0.68); EOSINOPHILS PERCENT AUTO 2 % (0-6); Hematocrit 35.4 % (37.0-53.0); Hemoglobin 10.8 g/dL (13.5-17.5); IMMATURE GRAN ABSOLUTE AUTO 0.03 K/mm3 (0.00-0.10); IMMATURE GRAN PERCENT AUTO 0 % (0-1); LYMPHOCYTES ABSOLUTE AUTO 1.22 K/mm3 (0.84-5.20); LYMPHOCYTES PERCENT AUTO 16 % (21-46); MONOCYTES ABSOLUTE AUTO 0.43 K/mm3 (0.16-1.47); MONOCYTES PERCENT AUTO 6 % (4-13); Mean Corpuscular HGB 24.3 pg (26.0-34.0); Mean Corpuscular HGB Conc 30.5 g/dL (31.5-36.5); Mean Corpuscular Volume 80 fL (80-100); NEUTROPHILS ABSOLUTE AUTO 5.77 K/mm3 (1.96-9.15); NEUTROPHILS PERCENT AUTO 75 % (41-73); Platelet Count 339 K/mm3 (150-400); RDW Coefficient Variation 17.3 % (11.7-14.2); Red Blood Cell Count 4.44 M/mm3 (4.30-5.90); White Blood Cell Count 7.71 K/mm3 (4.00-11.30)
[2021-09-23 16:07] LABS: International Normalized Ratio 1.77; Prothrombin Time Results 17.9 Sec (9.7-11.5)
== END | disposition home or self-care (01) ==
LOC: LAB SHORT 13:15
PROVIDERS: Internal Medicine
DX: I13.0 Hypertensive heart and chronic kidney disease with heart failure and stage 1 through stage 4 chronic kidney disease, or unspecified chronic kidney disease (principal); E11.42 Type 2 diabetes mellitus with diabetic polyneuropathy; E11.22 Type 2 diabetes mellitus with diabetic chronic kidney disease; I50.22 Chronic systolic (congestive) heart failure; N18.30 Chronic kidney disease, stage 3 unspecified; I48.91 Unspecified atrial fibrillation; D62 Acute posthemorrhagic anemia
CPT/HCPCS: 80053; 83615; 85025; 85610

== ENCOUNTER → 2021-09-30 | Outpatient (CLI) | payer OTHER ==
[2021-09-30 19:32] LABS: International Normalized Ratio 2.88; Prothrombin Time Results 28.2 Sec (9.7-11.5)
[2021-09-30 19:37] LABS: Lactate Dehydrogenase (Ld),Bld 188 U/L (100-240)
[2021-09-30 19:38] LABS: Alanine Aminotransfer (ALT/SGP 11 U/L (12-78); Albumin, Blood 2.7 g/dL (3.4-5.0); Albumin/Globulin Ratio 0.6 (0.8-1.8); Alk Phos 137 U/L (50-136); Anion Gap 8 mmol/L (6-16); Aspartate Aminotrans (AST/SGOT 7 U/L (12-37); Bilirubin, Total 0.4 mg/dL (0.1-1.0); Blood Urea Nitrogen 10 mg/dL (8-24); Bun/Creatinine Ratio 16.4 (12.0-20.0); CO2, Blood 25 mmol/L (21-32); Calcium, Blood 8.6 mg/dL (8.5-10.1); Chloride, Blood 96 mmol/L (98-108); Creatinine, Blood 0.61 mg/dL (0.60-1.20); Globulin, Blood 4.8 g/dL (2.2-4.0); Glomerular Filtration Rate >60 (60-); Glucose, Blood 559 mg/dL (70-99); Potassium, Blood 4.8 mmol/L (3.5-5.5); Sodium, Blood 129 mmol/L (136-145); Total Protein, Blood 7.5 g/dL (6.4-8.2)
[2021-09-30 19:40] LABS: BASOPHILS ABSOLUTE AUTO 0.06 K/mm3 (0.00-0.23); BASOPHILS PERCENT AUTO 1 % (0-2); EOSINOPHILS ABSOLUTE AUTO 0.13 K/mm3 (0.00-0.68); EOSINOPHILS PERCENT AUTO 1 % (0-6); Hemoglobin 10.2 g/dL (13.5-17.5); IMMATURE GRAN ABSOLUTE AUTO 0.03 K/mm3 (0.00-0.10); IMMATURE GRAN PERCENT AUTO 0 % (0-1); LYMPHOCYTES ABSOLUTE AUTO 0.92 K/mm3 (0.84-5.20); LYMPHOCYTES PERCENT AUTO 10 % (21-46); MONOCYTES ABSOLUTE AUTO 0.62 K/mm3 (0.16-1.47); MONOCYTES PERCENT AUTO 6 % (4-13); Mean Corpuscular HGB 24.1 pg (26.0-34.0); Mean Corpuscular Volume 80 fL (80-100); Mean Platelet Volume 10.9 fL (9.1-12.4); NEUTROPHILS ABSOLUTE AUTO 7.92 K/mm3 (1.96-9.15); NEUTROPHILS PERCENT AUTO 82 % (41-73); Platelet Count 388 K/mm3 (150-400); RDW Coefficient Variation 17.7 % (11.7-14.2); RDW Standard Deviation 51.8 fL (35.1-46.3); Red Blood Cell Count 4.23 M/mm3 (4.30-5.90); White Blood Cell Count 9.68 K/mm3 (4.00-11.30)
== END | disposition home or self-care (01) ==
LOC: LAB SHORT 16:35
PROVIDERS: Internal Medicine Cardiovascular Disease
DX: I50.22 Chronic systolic (congestive) heart failure (principal)
CPT/HCPCS: 80053; 83615; 85025; 85610

== ENCOUNTER → 2021-10-14 | Outpatient (CLI) | payer OTHER ==
[2021-10-14 12:24] LABS: BASOPHILS ABSOLUTE AUTO 0.09 K/mm3 (0.00-0.23); BASOPHILS PERCENT AUTO 1 % (0-2); EOSINOPHILS ABSOLUTE AUTO 0.31 K/mm3 (0.00-0.68); EOSINOPHILS PERCENT AUTO 4 % (0-6); Hematocrit 33.9 % (37.0-53.0); IMMATURE GRAN ABSOLUTE AUTO 0.03 K/mm3 (0.00-0.10); IMMATURE GRAN PERCENT AUTO 0 % (0-1); LYMPHOCYTES ABSOLUTE AUTO 1.64 K/mm3 (0.84-5.20); LYMPHOCYTES PERCENT AUTO 18 % (21-46); MONOCYTES ABSOLUTE AUTO 0.55 K/mm3 (0.16-1.47); MONOCYTES PERCENT AUTO 6 % (4-13); Mean Corpuscular HGB 23.1 pg (26.0-34.0); Mean Corpuscular HGB Conc 29.5 g/dL (31.5-36.5); Mean Corpuscular Volume 78 fL (80-100); Mean Platelet Volume 10.2 fL (9.1-12.4); NEUTROPHILS ABSOLUTE AUTO 6.35 K/mm3 (1.96-9.15); NEUTROPHILS PERCENT AUTO 71 % (41-73); Platelet Count 503 K/mm3 (150-400); RDW Coefficient Variation 17.4 % (11.7-14.2); RDW Standard Deviation 49.4 fL (35.1-46.3); Red Blood Cell Count 4.33 M/mm3 (4.30-5.90); White Blood Cell Count 8.97 K/mm3 (4.00-11.30)
[2021-10-14 12:46] LABS: Alanine Aminotransfer (ALT/SGP 12 U/L (12-78); Albumin, Blood 2.5 g/dL (3.4-5.0); Albumin/Globulin Ratio 0.5 (0.8-1.8); Alk Phos 129 U/L (50-136); Anion Gap 3 mmol/L (6-16); Aspartate Aminotrans (AST/SGOT 10 U/L (12-37); Bilirubin, Total 0.3 mg/dL (0.1-1.0); Blood Urea Nitrogen 7 mg/dL (8-24); Bun/Creatinine Ratio 13.6 (12.0-20.0); CO2, Blood 31 mmol/L (21-32); Calcium, Blood 8.9 mg/dL (8.5-10.1); Chloride, Blood 100 mmol/L (98-108); Creatinine, Blood 0.52 mg/dL (0.60-1.20); Globulin, Blood 4.8 g/dL (2.2-4.0); Glomerular Filtration Rate >60 (60-); Glucose, Blood 316 mg/dL (70-99); Lactate Dehydrogenase (Ld),Bld 228 U/L (100-240); Potassium, Blood 4.4 mmol/L (3.5-5.5); Sodium, Blood 134 mmol/L (136-145); Total Protein, Blood 7.3 g/dL (6.4-8.2)
== END | disposition home or self-care (01) ==
LOC: LAB SHORT 10:56
PROVIDERS: Internal Medicine Cardiovascular Disease
DX: I13.0 Hypertensive heart and chronic kidney disease with heart failure and stage 1 through stage 4 chronic kidney disease, or unspecified chronic kidney disease (principal); I50.22 Chronic systolic (congestive) heart failure; E11.22 Type 2 diabetes mellitus with diabetic chronic kidney disease; N18.30 Chronic kidney disease, stage 3 unspecified; E11.42 Type 2 diabetes mellitus with diabetic polyneuropathy; I48.91 Unspecified atrial fibrillation; I25.10 Atherosclerotic heart disease of native coronary artery without angina pectoris; Z95.811 Presence of heart assist device
CPT/HCPCS: 80053; 83615; 85025

== ENCOUNTER → 2021-10-21 | Outpatient (CLI) | payer OTHER ==
[2021-10-21 13:28] LABS: International Normalized Ratio 2.32; Prothrombin Time Results 23.1 Sec (9.7-11.5)
[2021-10-21 13:31] LABS: BASOPHILS ABSOLUTE AUTO 0.08 K/mm3 (0.00-0.23); BASOPHILS PERCENT AUTO 1 % (0-2); EOSINOPHILS PERCENT AUTO 4 % (0-6); Hematocrit 32.2 % (37.0-53.0); Hemoglobin 9.3 g/dL (13.5-17.5); IMMATURE GRAN ABSOLUTE AUTO 0.03 K/mm3 (0.00-0.10); IMMATURE GRAN PERCENT AUTO 0 % (0-1); LYMPHOCYTES ABSOLUTE AUTO 1.29 K/mm3 (0.84-5.20); LYMPHOCYTES PERCENT AUTO 15 % (21-46); MONOCYTES ABSOLUTE AUTO 0.65 K/mm3 (0.16-1.47); MONOCYTES PERCENT AUTO 8 % (4-13); Mean Corpuscular HGB Conc 28.9 g/dL (31.5-36.5); Mean Corpuscular Volume 80 fL (80-100); Mean Platelet Volume 10.6 fL (9.1-12.4); NEUTROPHILS ABSOLUTE AUTO 6.07 K/mm3 (1.96-9.15); NEUTROPHILS PERCENT AUTO 72 % (41-73); Platelet Count 329 K/mm3 (150-400); RDW Coefficient Variation 18.5 % (11.7-14.2); RDW Standard Deviation 52.8 fL (35.1-46.3); Red Blood Cell Count 4.05 M/mm3 (4.30-5.90); White Blood Cell Count 8.42 K/mm3 (4.00-11.30)
[2021-10-21 14:20] LABS: Lactate Dehydrogenase (Ld),Bld 187 U/L (100-240); Uric Acid, Blood 5.3 mg/dL (3.5-7.2)
[2021-10-21 14:21] LABS: Alanine Aminotransfer (ALT/SGP 11 U/L (12-78); Albumin, Blood 2.4 g/dL (3.4-5.0); Albumin/Globulin Ratio 0.5 (0.8-1.8); Alk Phos 114 U/L (50-136); Anion Gap 3 mmol/L (6-16); Aspartate Aminotrans (AST/SGOT 8 U/L (12-37); Bilirubin, Total 0.5 mg/dL (0.1-1.0); Blood Urea Nitrogen 10 mg/dL (8-24); Bun/Creatinine Ratio 17.5 (12.0-20.0); CO2, Blood 29 mmol/L (21-32); Calcium, Blood 8.4 mg/dL (8.5-10.1); Chloride, Blood 104 mmol/L (98-108); Creatinine, Blood 0.57 mg/dL (0.60-1.20); Globulin, Blood 4.4 g/dL (2.2-4.0); Glomerular Filtration Rate >60 (60-); Glucose, Blood 333 mg/dL (70-99); Potassium, Blood 4.1 mmol/L (3.5-5.5); Sodium, Blood 136 mmol/L (136-145); Total Protein, Blood 6.8 g/dL (6.4-8.2)
== END | disposition home or self-care (01) ==
LOC: LAB SHORT 10:28 → LAB 10:28
PROVIDERS: Internal Medicine Cardiovascular Disease
DX: I50.22 Chronic systolic (congestive) heart failure (principal); M10.9 Gout, unspecified
CPT/HCPCS: 80053; 83615; 84550; 85025; 85610

== ENCOUNTER → 2021-11-04 | Outpatient (CLI) | payer OTHER ==
[2021-11-04 19:33] LABS: BASOPHILS ABSOLUTE AUTO 0.09 K/mm3 (0.00-0.23); BASOPHILS PERCENT AUTO 1 % (0-2); EOSINOPHILS ABSOLUTE AUTO 0.26 K/mm3 (0.00-0.68); EOSINOPHILS PERCENT AUTO 3 % (0-6); Hemoglobin 9.3 g/dL (13.5-17.5); IMMATURE GRAN ABSOLUTE AUTO 0.05 K/mm3 (0.00-0.10); IMMATURE GRAN PERCENT AUTO 1 % (0-1); LYMPHOCYTES PERCENT AUTO 22 % (21-46); MONOCYTES ABSOLUTE AUTO 0.47 K/mm3 (0.16-1.47); MONOCYTES PERCENT AUTO 5 % (4-13); Mean Corpuscular HGB 22.6 pg (26.0-34.0); Mean Corpuscular HGB Conc 29.1 g/dL (31.5-36.5); Mean Corpuscular Volume 78 fL (80-100); Mean Platelet Volume 11.9 fL (9.1-12.4); NEUTROPHILS ABSOLUTE AUTO 5.93 K/mm3 (1.96-9.15); NEUTROPHILS PERCENT AUTO 68 % (41-73); NRBC ABSOLUTE 0.02 K/mm3 (0.00-0.02); NRBC Auto 0.2 /100 WBC (0.0-0.2); Platelet Count 334 K/mm3 (150-400); RDW Coefficient Variation 19.6 % (11.7-14.2); RDW Standard Deviation 53.7 fL (35.1-46.3); Red Blood Cell Count 4.12 M/mm3 (4.30-5.90)
[2021-11-04 20:14] LABS: Alanine Aminotransfer (ALT/SGP 14 U/L (12-78); Albumin, Blood 2.6 g/dL (3.4-5.0); Albumin/Globulin Ratio 0.6 (0.8-1.8); Alk Phos 126 U/L (50-136); Anion Gap 5 mmol/L (6-16); Aspartate Aminotrans (AST/SGOT 8 U/L (12-37); Bilirubin, Total 0.5 mg/dL (0.1-1.0); Blood Urea Nitrogen 13 mg/dL (8-24); Bun/Creatinine Ratio 17.4 (12.0-20.0); CO2, Blood 27 mmol/L (21-32); Calcium, Blood 8.6 mg/dL (8.5-10.1); Chloride, Blood 101 mmol/L (98-108); Creatinine, Blood 0.75 mg/dL (0.60-1.20); Globulin, Blood 4.5 g/dL (2.2-4.0); Glomerular Filtration Rate >60 (60-); Glucose, Blood 464 mg/dL (70-99); Lactate Dehydrogenase (Ld),Bld 275 U/L (100-240); Potassium, Blood 4.1 mmol/L (3.5-5.5); Sodium, Blood 133 mmol/L (136-145); Total Protein, Blood 7.1 g/dL (6.4-8.2)
[2021-11-04 20:27] LABS: International Normalized Ratio 2.67; Prothrombin Time Results 26.3 Sec (9.7-11.5)
== END | disposition home or self-care (01) ==
LOC: LAB SHORT 11:50
PROVIDERS: Internal Medicine Cardiovascular Disease
DX: I13.0 Hypertensive heart and chronic kidney disease with heart failure and stage 1 through stage 4 chronic kidney disease, or unspecified chronic kidney disease (principal); E11.22 Type 2 diabetes mellitus with diabetic chronic kidney disease; N18.30 Chronic kidney disease, stage 3 unspecified; I50.22 Chronic systolic (congestive) heart failure; E11.42 Type 2 diabetes mellitus with diabetic polyneuropathy; I48.91 Unspecified atrial fibrillation; I25.10 Atherosclerotic heart disease of native coronary artery without angina pectoris; Z95.811 Presence of heart assist device
CPT/HCPCS: 80053; 83615; 85025; 85610

== ENCOUNTER → 2021-11-11 | Outpatient (CLI) | payer OTHER ==
[2021-11-11 13:23] LABS: BASOPHILS ABSOLUTE AUTO 0.07 K/mm3 (0.00-0.23); BASOPHILS PERCENT AUTO 1 % (0-2); EOSINOPHILS ABSOLUTE AUTO 0.36 K/mm3 (0.00-0.68); EOSINOPHILS PERCENT AUTO 4 % (0-6); Hematocrit 40.5 % (37.0-53.0); Hemoglobin 11.8 g/dL (13.5-17.5); IMMATURE GRAN ABSOLUTE AUTO 0.04 K/mm3 (0.00-0.10); IMMATURE GRAN PERCENT AUTO 0 % (0-1); LYMPHOCYTES ABSOLUTE AUTO 2.33 K/mm3 (0.84-5.20); LYMPHOCYTES PERCENT AUTO 26 % (21-46); MONOCYTES ABSOLUTE AUTO 0.57 K/mm3 (0.16-1.47); MONOCYTES PERCENT AUTO 6 % (4-13); Mean Corpuscular HGB 22.7 pg (26.0-34.0); Mean Corpuscular HGB Conc 29.1 g/dL (31.5-36.5); Mean Corpuscular Volume 78 fL (80-100); Mean Platelet Volume 10.9 fL (9.1-12.4); NEUTROPHILS ABSOLUTE AUTO 5.57 K/mm3 (1.96-9.15); NEUTROPHILS PERCENT AUTO 62 % (41-73); Platelet Count 329 K/mm3 (150-400); RDW Coefficient Variation 20.3 % (11.7-14.2); RDW Standard Deviation 54.4 fL (35.1-46.3); Red Blood Cell Count 5.19 M/mm3 (4.30-5.90); White Blood Cell Count 8.94 K/mm3 (4.00-11.30)
[2021-11-11 13:26] LABS: International Normalized Ratio 1.41; Prothrombin Time Results 14.5 Sec (9.7-11.5)
[2021-11-11 14:53] LABS: Alanine Aminotransfer (ALT/SGP 20 U/L (12-78); Albumin, Blood 2.8 g/dL (3.4-5.0); Albumin/Globulin Ratio 0.6 (0.8-1.8); Alk Phos 132 U/L (50-136); Anion Gap 6 mmol/L (6-16); Aspartate Aminotrans (AST/SGOT 8 U/L (12-37); Bilirubin, Total 0.8 mg/dL (0.1-1.0); Blood Urea Nitrogen 16 mg/dL (8-24); Bun/Creatinine Ratio 19.7 (12.0-20.0); CO2, Blood 30 mmol/L (21-32); Calcium, Blood 8.8 mg/dL (8.5-10.1); Chloride, Blood 95 mmol/L (98-108); Creatinine, Blood 0.81 mg/dL (0.60-1.20); Globulin, Blood 4.5 g/dL (2.2-4.0); Glomerular Filtration Rate >60 (60-); Glucose, Blood 356 mg/dL (70-99); Lactate Dehydrogenase (Ld),Bld 223 U/L (100-240); Potassium, Blood 4.4 mmol/L (3.5-5.5); Sodium, Blood 131 mmol/L (136-145); Total Protein, Blood 7.3 g/dL (6.4-8.2)
== END | disposition home or self-care (01) ==
LOC: LAB SHORT 09:45
PROVIDERS: Internal Medicine Cardiovascular Disease
DX: I50.22 Chronic systolic (congestive) heart failure (principal)
CPT/HCPCS: 80053; 83615; 85025; 85610

== ENCOUNTER → 2021-11-18 | Outpatient (CLI) | payer OTHER ==
[2021-11-18 13:22] LABS: BASOPHILS ABSOLUTE AUTO 0.13 K/mm3 (0.00-0.23); BASOPHILS PERCENT AUTO 1 % (0-2); EOSINOPHILS PERCENT AUTO 2 % (0-6); Hematocrit 40.4 % (37.0-53.0); Hemoglobin 12.2 g/dL (13.5-17.5); IMMATURE GRAN ABSOLUTE AUTO 0.01 K/mm3 (0.00-0.10); IMMATURE GRAN PERCENT AUTO 0 % (0-1); LYMPHOCYTES ABSOLUTE AUTO 1.54 K/mm3 (0.84-5.20); LYMPHOCYTES PERCENT AUTO 16 % (21-46); MONOCYTES ABSOLUTE AUTO 0.64 K/mm3 (0.16-1.47); MONOCYTES PERCENT AUTO 7 % (4-13); Mean Corpuscular HGB 22.6 pg (26.0-34.0); Mean Corpuscular HGB Conc 30.2 g/dL (31.5-36.5); Mean Corpuscular Volume 75 fL (80-100); Mean Platelet Volume 10.8 fL (9.1-12.4); NEUTROPHILS ABSOLUTE AUTO 6.94 K/mm3 (1.96-9.15); NEUTROPHILS PERCENT AUTO 73 % (41-73); Platelet Count 342 K/mm3 (150-400); RDW Coefficient Variation 19.6 % (11.7-14.2); RDW Standard Deviation 52.1 fL (35.1-46.3); Red Blood Cell Count 5.39 M/mm3 (4.30-5.90); White Blood Cell Count 9.46 K/mm3 (4.00-11.30)
[2021-11-18 13:30] LABS: International Normalized Ratio 2.13; Prothrombin Time Results 21.3 Sec (9.7-11.5)
[2021-11-18 15:51] LABS: Alanine Aminotransfer (ALT/SGP 22 U/L (12-78); Albumin, Blood 2.8 g/dL (3.4-5.0); Albumin/Globulin Ratio 0.6 (0.8-1.8); Alk Phos 133 U/L (50-136); Anion Gap 5 mmol/L (6-16); Aspartate Aminotrans (AST/SGOT 11 U/L (12-37); Bilirubin, Total 0.6 mg/dL (0.1-1.0); Blood Urea Nitrogen 12 mg/dL (8-24); Bun/Creatinine Ratio 18.9 (12.0-20.0); CO2, Blood 30 mmol/L (21-32); Calcium, Blood 9.1 mg/dL (8.5-10.1); Chloride, Blood 95 mmol/L (98-108); Creatinine, Blood 0.64 mg/dL (0.60-1.20); Globulin, Blood 4.6 g/dL (2.2-4.0); Glomerular Filtration Rate >60 (60-); Glucose, Blood 440 mg/dL (70-99); Lactate Dehydrogenase (Ld),Bld 210 U/L (100-240); Potassium, Blood 4.4 mmol/L (3.5-5.5); Sodium, Blood 130 mmol/L (136-145); Total Protein, Blood 7.4 g/dL (6.4-8.2); Uric Acid, Blood 4.9 mg/dL (3.5-7.2)
== END | disposition home or self-care (01) ==
LOC: LAB SHORT 09:48
PROVIDERS: Internal Medicine Cardiovascular Disease
DX: I50.22 Chronic systolic (congestive) heart failure (principal)
CPT/HCPCS: 80053; 83615; 84550; 85025; 85610

== ENCOUNTER → 2021-11-25 | Outpatient (CLI) | payer OTHER ==
[2021-11-25 13:38] LABS: BASOPHILS ABSOLUTE AUTO 0.06 K/mm3 (0.00-0.23); BASOPHILS PERCENT AUTO 1 % (0-2); EOSINOPHILS ABSOLUTE AUTO 0.16 K/mm3 (0.00-0.68); EOSINOPHILS PERCENT AUTO 2 % (0-6); Hematocrit 39.5 % (37.0-53.0); Hemoglobin 12.1 g/dL (13.5-17.5); IMMATURE GRAN ABSOLUTE AUTO 0.04 K/mm3 (0.00-0.10); IMMATURE GRAN PERCENT AUTO 1 % (0-1); LYMPHOCYTES PERCENT AUTO 22 % (21-46); MONOCYTES ABSOLUTE AUTO 0.47 K/mm3 (0.16-1.47); MONOCYTES PERCENT AUTO 6 % (4-13); Mean Corpuscular HGB 22.5 pg (26.0-34.0); Mean Corpuscular HGB Conc 30.6 g/dL (31.5-36.5); Mean Corpuscular Volume 74 fL (80-100); Mean Platelet Volume 10.7 fL (9.1-12.4); NEUTROPHILS ABSOLUTE AUTO 5.87 K/mm3 (1.96-9.15); NEUTROPHILS PERCENT AUTO 69 % (41-73); Platelet Count 354 K/mm3 (150-400); RDW Coefficient Variation 20.2 % (11.7-14.2); RDW Standard Deviation 51.2 fL (35.1-46.3); Red Blood Cell Count 5.37 M/mm3 (4.30-5.90)
[2021-11-25 14:34] LABS: Alanine Aminotransfer (ALT/SGP 16 U/L (12-78); Albumin, Blood 2.8 g/dL (3.4-5.0); Albumin/Globulin Ratio 0.6 (0.8-1.8); Alk Phos 129 U/L (50-136); Anion Gap 5 mmol/L (6-16); Aspartate Aminotrans (AST/SGOT 15 U/L (12-37); Bilirubin, Total 0.4 mg/dL (0.1-1.0); Blood Urea Nitrogen 15 mg/dL (8-24); Bun/Creatinine Ratio 19.8 (12.0-20.0); CO2, Blood 30 mmol/L (21-32); Calcium, Blood 8.9 mg/dL (8.5-10.1); Chloride, Blood 92 mmol/L (98-108); Creatinine, Blood 0.76 mg/dL (0.60-1.20); Globulin, Blood 4.6 g/dL (2.2-4.0); Glomerular Filtration Rate >60 (60-); Glucose, Blood 426 mg/dL (70-99); Lactate Dehydrogenase (Ld),Bld 203 U/L (100-240); Potassium, Blood 4.1 mmol/L (3.5-5.5); Sodium, Blood 127 mmol/L (136-145); Total Protein, Blood 7.4 g/dL (6.4-8.2)
[2021-11-25 20:06] LABS: Uric Acid, Blood 6.3 mg/dL (3.5-7.2)
== END | disposition home or self-care (01) ==
LOC: LAB SHORT 12:23
PROVIDERS: Internal Medicine Cardiovascular Disease
DX: I13.0 Hypertensive heart and chronic kidney disease with heart failure and stage 1 through stage 4 chronic kidney disease, or unspecified chronic kidney disease (principal); E11.22 Type 2 diabetes mellitus with diabetic chronic kidney disease; E11.42 Type 2 diabetes mellitus with diabetic polyneuropathy; I50.22 Chronic systolic (congestive) heart failure; N18.30 Chronic kidney disease, stage 3 unspecified; D63.1 Anemia in chronic kidney disease; I48.91 Unspecified atrial fibrillation; I25.10 Atherosclerotic heart disease of native coronary artery without angina pectoris; M11.261 Other chondrocalcinosis, right knee; Z95.811 Presence of heart assist device
CPT/HCPCS: 80053; 82728; 83036; 83615; 84550; 85025

== ENCOUNTER → 2021-12-02 | Outpatient (CLI) | payer OTHER ==
[2021-12-02 12:17] LABS: Alanine Aminotransfer (ALT/SGP 14 U/L (12-78); Albumin, Blood 2.7 g/dL (3.4-5.0); Albumin/Globulin Ratio 0.6 (0.8-1.8); Alk Phos 126 U/L (50-136); Anion Gap 5 mmol/L (6-16); Aspartate Aminotrans (AST/SGOT 8 U/L (12-37); Bilirubin, Total 0.5 mg/dL (0.1-1.0); Blood Urea Nitrogen 16 mg/dL (8-24); Bun/Creatinine Ratio 20.8 (12.0-20.0); CO2, Blood 31 mmol/L (21-32); Calcium, Blood 8.6 mg/dL (8.5-10.1); Chloride, Blood 93 mmol/L (98-108); Creatinine, Blood 0.77 mg/dL (0.60-1.20); Globulin, Blood 4.5 g/dL (2.2-4.0); Glomerular Filtration Rate >60 (60-); Glucose, Blood 404 mg/dL (70-99); Lactate Dehydrogenase (Ld),Bld 188 U/L (100-240); Potassium, Blood 3.7 mmol/L (3.5-5.5); Sodium, Blood 129 mmol/L (136-145); Total Protein, Blood 7.2 g/dL (6.4-8.2); Uric Acid, Blood 6.5 mg/dL (3.5-7.2)
[2021-12-02 12:18] LABS: BASOPHILS ABSOLUTE AUTO 0.07 K/mm3 (0.00-0.23); BASOPHILS PERCENT AUTO 1 % (0-2); EOSINOPHILS ABSOLUTE AUTO 0.13 K/mm3 (0.00-0.68); EOSINOPHILS PERCENT AUTO 1 % (0-6); Hematocrit 38.2 % (37.0-53.0); Hemoglobin 11.6 g/dL (13.5-17.5); IMMATURE GRAN ABSOLUTE AUTO 0.05 K/mm3 (0.00-0.10); IMMATURE GRAN PERCENT AUTO 1 % (0-1); LYMPHOCYTES ABSOLUTE AUTO 1.53 K/mm3 (0.84-5.20); LYMPHOCYTES PERCENT AUTO 15 % (21-46); MONOCYTES ABSOLUTE AUTO 0.94 K/mm3 (0.16-1.47); MONOCYTES PERCENT AUTO 9 % (4-13); Mean Corpuscular HGB 22.5 pg (26.0-34.0); Mean Corpuscular HGB Conc 30.4 g/dL (31.5-36.5); Mean Corpuscular Volume 74 fL (80-100); Mean Platelet Volume 10.9 fL (9.1-12.4); NEUTROPHILS ABSOLUTE AUTO 7.74 K/mm3 (1.96-9.15); NEUTROPHILS PERCENT AUTO 74 % (41-73); Platelet Count 392 K/mm3 (150-400); RDW Coefficient Variation 20.5 % (11.7-14.2); RDW Standard Deviation 53.2 fL (35.1-46.3); Red Blood Cell Count 5.16 M/mm3 (4.30-5.90); White Blood Cell Count 10.46 K/mm3 (4.00-11.30)
[2021-12-02 12:30] LABS: Prothrombin Time Results 73.9 Sec (9.7-11.5)
[2021-12-02 15:30] LABS: International Normalized Ratio 8.07
== END | disposition home or self-care (01) ==
LOC: LAB SHORT 10:46
PROVIDERS: Internal Medicine Cardiovascular Disease
DX: M10.9 Gout, unspecified (principal); I50.22 Chronic systolic (congestive) heart failure
CPT/HCPCS: 80053; 83615; 84550; 85025; 85610

== ENCOUNTER → 2021-12-09 | Outpatient (CLI) | payer OTHER ==
[2021-12-09 12:31] LABS: International Normalized Ratio 1.82; Prothrombin Time Results 18.4 Sec (9.7-11.5)
[2021-12-09 12:32] LABS: BASOPHILS PERCENT AUTO 1 % (0-2); EOSINOPHILS ABSOLUTE AUTO 0.18 K/mm3 (0.00-0.68); EOSINOPHILS PERCENT AUTO 2 % (0-6); Hematocrit 32.4 % (37.0-53.0); Hemoglobin 9.5 g/dL (13.5-17.5); IMMATURE GRAN ABSOLUTE AUTO 0.02 K/mm3 (0.00-0.10); IMMATURE GRAN PERCENT AUTO 0 % (0-1); LYMPHOCYTES ABSOLUTE AUTO 1.83 K/mm3 (0.84-5.20); LYMPHOCYTES PERCENT AUTO 22 % (21-46); MONOCYTES ABSOLUTE AUTO 0.64 K/mm3 (0.16-1.47); MONOCYTES PERCENT AUTO 8 % (4-13); Mean Corpuscular HGB 22.4 pg (26.0-34.0); Mean Corpuscular HGB Conc 29.3 g/dL (31.5-36.5); Mean Corpuscular Volume 76 fL (80-100); Mean Platelet Volume 10.1 fL (9.1-12.4); NEUTROPHILS ABSOLUTE AUTO 5.53 K/mm3 (1.96-9.15); NEUTROPHILS PERCENT AUTO 67 % (41-73); Platelet Count 307 K/mm3 (150-400); RDW Coefficient Variation 20.4 % (11.7-14.2); RDW Standard Deviation 56.2 fL (35.1-46.3); Red Blood Cell Count 4.24 M/mm3 (4.30-5.90)
[2021-12-09 13:14] LABS: Alanine Aminotransfer (ALT/SGP 12 U/L (12-78); Albumin, Blood 2.4 g/dL (3.4-5.0); Albumin/Globulin Ratio 0.6 (0.8-1.8); Alk Phos 100 U/L (50-136); Anion Gap 5 mmol/L (6-16); Aspartate Aminotrans (AST/SGOT 9 U/L (12-37); Bilirubin, Total 0.3 mg/dL (0.1-1.0); Blood Urea Nitrogen 10 mg/dL (8-24); Bun/Creatinine Ratio 15.2 (12.0-20.0); CO2, Blood 28 mmol/L (21-32); Calcium, Blood 8.8 mg/dL (8.5-10.1); Chloride, Blood 106 mmol/L (98-108); Creatinine, Blood 0.66 mg/dL (0.60-1.20); Glomerular Filtration Rate >60 (60-); Glucose, Blood 89 mg/dL (70-99); Lactate Dehydrogenase (Ld),Bld 163 U/L (100-240); Potassium, Blood 4.1 mmol/L (3.5-5.5); Sodium, Blood 139 mmol/L (136-145); Total Protein, Blood 6.4 g/dL (6.4-8.2)
[2021-12-09 13:55] LABS: C DIFFICILE DNA POSITIVE (Negative)
== END | disposition home or self-care (01) ==
LOC: LAB SHORT 10:37
PROVIDERS: Internal Medicine Cardiovascular Disease
DX: I50.22 Chronic systolic (congestive) heart failure (principal); A04.72 Enterocolitis due to Clostridium difficile, not specified as recurrent
CPT/HCPCS: 80053; 83615; 85025; 85610; 87324; 87493

== ENCOUNTER → 2021-12-16 | Outpatient (CLI) | payer OTHER ==
[2021-12-16 16:41] LABS: BASOPHILS ABSOLUTE AUTO 0.07 K/mm3 (0.00-0.23); BASOPHILS PERCENT AUTO 1 % (0-2); EOSINOPHILS PERCENT AUTO 2 % (0-6); Hemoglobin 9.3 g/dL (13.5-17.5); IMMATURE GRAN ABSOLUTE AUTO 0.04 K/mm3 (0.00-0.10); IMMATURE GRAN PERCENT AUTO 1 % (0-1); LYMPHOCYTES ABSOLUTE AUTO 1.71 K/mm3 (0.84-5.20); LYMPHOCYTES PERCENT AUTO 19 % (21-46); MONOCYTES ABSOLUTE AUTO 0.65 K/mm3 (0.16-1.47); MONOCYTES PERCENT AUTO 7 % (4-13); Mean Corpuscular HGB 22.5 pg (26.0-34.0); Mean Corpuscular Volume 75 fL (80-100); Mean Platelet Volume 9.4 fL (9.1-12.4); NEUTROPHILS ABSOLUTE AUTO 6.21 K/mm3 (1.96-9.15); NEUTROPHILS PERCENT AUTO 70 % (41-73); Platelet Count 325 K/mm3 (150-400); RDW Coefficient Variation 20.1 % (11.7-14.2); RDW Standard Deviation 54.7 fL (35.1-46.3); Red Blood Cell Count 4.13 M/mm3 (4.30-5.90); White Blood Cell Count 8.88 K/mm3 (4.00-11.30)
[2021-12-16 16:54] LABS: Alanine Aminotransfer (ALT/SGP 14 U/L (12-78); Albumin, Blood 2.5 g/dL (3.4-5.0); Albumin/Globulin Ratio 0.5 (0.8-1.8); Alk Phos 118 U/L (50-136); Anion Gap 4 mmol/L (6-16); Aspartate Aminotrans (AST/SGOT 8 U/L (12-37); Bilirubin, Total 0.4 mg/dL (0.1-1.0); Blood Urea Nitrogen 13 mg/dL (8-24); Bun/Creatinine Ratio 16.3 (12.0-20.0); CO2, Blood 30 mmol/L (21-32); Calcium, Blood 8.7 mg/dL (8.5-10.1); Chloride, Blood 99 mmol/L (98-108); Globulin, Blood 4.6 g/dL (2.2-4.0); Glomerular Filtration Rate >60 (60-); Glucose, Blood 293 mg/dL (70-99); Lactate Dehydrogenase (Ld),Bld 192 U/L (100-240); Potassium, Blood 4.6 mmol/L (3.5-5.5); Sodium, Blood 133 mmol/L (136-145); Total Protein, Blood 7.1 g/dL (6.4-8.2)
[2021-12-16 17:07] LABS: International Normalized Ratio 1.7; Prothrombin Time Results 17.2 Sec (9.7-11.5)
== END | disposition home or self-care (01) ==
LOC: LAB SHORT 15:15
PROVIDERS: Internal Medicine Cardiovascular Disease
DX: I13.0 Hypertensive heart and chronic kidney disease with heart failure and stage 1 through stage 4 chronic kidney disease, or unspecified chronic kidney disease (principal); I50.22 Chronic systolic (congestive) heart failure; E11.22 Type 2 diabetes mellitus with diabetic chronic kidney disease; N18.30 Chronic kidney disease, stage 3 unspecified; E11.42 Type 2 diabetes mellitus with diabetic polyneuropathy; I48.91 Unspecified atrial fibrillation; I25.10 Atherosclerotic heart disease of native coronary artery without angina pectoris; Z95.811 Presence of heart assist device
CPT/HCPCS: 80053; 83615; 85025; 85610

== ENCOUNTER 2022-07-19 03:40 | Emergency (ER) | payer OTHER ==
[~2022-07-19] VITALS: Ht 185.4 cm; Wt 90.7 kg
[~2022-07-19 03:40] MED LIST changes: +Coumadin2 MG PO; -WARF5 PO
[2022-07-19 04:11] LABS: BASOPHILS ABSOLUTE AUTO 0.11 K/mm3 (0.00-0.23); BASOPHILS PERCENT AUTO 1 % (0-2); EOSINOPHILS ABSOLUTE AUTO 0.31 K/mm3 (0.00-0.68); EOSINOPHILS PERCENT AUTO 3 % (0-6); Hematocrit 35.9 % (37.0-53.0); Hemoglobin 11.5 g/dL (13.5-17.5); IMMATURE GRAN ABSOLUTE AUTO 0.09 K/mm3 (0.00-0.10); IMMATURE GRAN PERCENT AUTO 1 % (0-1); LYMPHOCYTES ABSOLUTE AUTO 3.46 K/mm3 (0.84-5.20); LYMPHOCYTES PERCENT AUTO 32 % (21-46); MONOCYTES ABSOLUTE AUTO 0.53 K/mm3 (0.16-1.47); MONOCYTES PERCENT AUTO 5 % (4-13); Mean Corpuscular HGB 27.2 pg (26.0-34.0); Mean Corpuscular Volume 85 fL (80-100); Mean Platelet Volume 10.4 fL (9.1-12.4); NEUTROPHILS ABSOLUTE AUTO 6.34 K/mm3 (1.96-9.15); NEUTROPHILS PERCENT AUTO 59 % (41-73); NRBC ABSOLUTE 0.03 K/mm3 (0.00-0.02); NRBC Auto 0.3 /100 WBC (0.0-0.2); Platelet Count 171 K/mm3 (150-400); RDW Coefficient Variation 26.1 % (11.7-14.2); RDW Standard Deviation 79.9 fL (35.1-46.3); Red Blood Cell Count 4.23 M/mm3 (4.30-5.90); White Blood Cell Count 10.84 K/mm3 (4.00-11.30)
[2022-07-19 04:48] LABS: Albumin, Blood 2.4 g/dL (3.4-5.0); Albumin/Globulin Ratio 0.8 (0.8-1.8); Bilirubin, Total 1.5 mg/dL (0.1-1.0); Calcium, Blood 7.6 mg/dL (8.5-10.1); Creatinine, Blood 1.6 mg/dL (0.60-1.20); Globulin, Blood 3.1 g/dL (2.2-4.0); Magnesium, Blood 1.5 mg/dL (1.6-2.4); Potassium, Blood 4.3 mmol/L (3.5-5.5); Total Protein, Blood 5.5 g/dL (6.4-8.2)
[2022-07-19 04:50] LABS: International Normalized Ratio 2.89; Prothrombin Time Results 28.3 Sec (9.7-11.5)
[2022-07-19 05:25] LABS: Influenza A, PCR NEGATIVE (NEGATIVE); Influenza B, PCR NEGATIVE (NEGATIVE); Resp Syncytial Virus, PCR NEGATIVE (NEGATIVE); SARS-Cov-2 (COVID-19) PCR, MMC NEGATIVE (NEGATIVE)
== END 2022-07-19 08:56 | disposition home or self-care (01) ==
LOC: ER 03:40
PROVIDERS: Emergency Medicine
DX: T82.598A Other mechanical complication of other cardiac and vascular devices and implants, initial encounter (principal); E11.22 Type 2 diabetes mellitus with diabetic chronic kidney disease; I13.0 Hypertensive heart and chronic kidney disease with heart failure and stage 1 through stage 4 chronic kidney disease, or unspecified chronic kidney disease; I50.20 Unspecified systolic (congestive) heart failure; N18.30 Chronic kidney disease, stage 3 unspecified; I25.2 Old myocardial infarction; E86.0 Dehydration; N17.9 Acute kidney failure, unspecified; E83.42 Hypomagnesemia; E83.51 Hypocalcemia; Y71.2 Prosthetic and other implants, materials and accessory cardiovascular devices associated with adverse incidents; Z88.8 Allergy status to other drugs, medicaments and biological substances; Z79.82 Long term (current) use of aspirin; Z79.4 Long term (current) use of insulin; Z79.01 Long term (current) use of anticoagulants; Z79.899 Other long term (current) drug therapy; Z87.891 Personal history of nicotine dependence; Z20.822 Contact with and (suspected) exposure to COVID-19
CPT/HCPCS: 0241U; 71045; 80053; 83605; 83735; 83880; 84484; 85025; 85610; 86850; 86900; 86901; J0610; J3475; J7120

== ENCOUNTER 2022-07-19 14:36 | Inpatient (IN) | payer OTHER ==
[~2022-07-19] VITALS: Ht 185.4 cm; Wt 103.5 kg
[2022-07-19 16:24] LABS: BASOPHILS ABSOLUTE AUTO 0.05 K/mm3 (0.00-0.23); BASOPHILS PERCENT AUTO 1 % (0-2); EOSINOPHILS PERCENT AUTO 1 % (0-6); Hematocrit 32.6 % (37.0-53.0); Hemoglobin 10.6 g/dL (13.5-17.5); IMMATURE GRAN ABSOLUTE AUTO 0.07 K/mm3 (0.00-0.10); IMMATURE GRAN PERCENT AUTO 1 % (0-1); LYMPHOCYTES ABSOLUTE AUTO 2.21 K/mm3 (0.84-5.20); LYMPHOCYTES PERCENT AUTO 25 % (21-46); MONOCYTES ABSOLUTE AUTO 0.43 K/mm3 (0.16-1.47); MONOCYTES PERCENT AUTO 5 % (4-13); Mean Corpuscular HGB 27.3 pg (26.0-34.0); Mean Corpuscular HGB Conc 32.5 g/dL (31.5-36.5); Mean Corpuscular Volume 84 fL (80-100); Mean Platelet Volume 10.9 fL (9.1-12.4); NEUTROPHILS ABSOLUTE AUTO 6.15 K/mm3 (1.96-9.15); NEUTROPHILS PERCENT AUTO 68 % (41-73); NRBC ABSOLUTE 0.03 K/mm3 (0.00-0.02); NRBC Auto 0.3 /100 WBC (0.0-0.2); Platelet Count 177 K/mm3 (150-400); RDW Coefficient Variation 25.8 % (11.7-14.2); Red Blood Cell Count 3.88 M/mm3 (4.30-5.90); White Blood Cell Count 9.01 K/mm3 (4.00-11.30)
[2022-07-19 16:36] LABS: Albumin, Blood 2.2 g/dL (3.4-5.0); Albumin/Globulin Ratio 0.9 (0.8-1.8); Bilirubin, Total 1.6 mg/dL (0.1-1.0); Bun/Creatinine Ratio 15.5 (12.0-20.0); Calcium, Blood 7.9 mg/dL (8.5-10.1); Creatinine, Blood 1.55 mg/dL (0.60-1.20); Globulin, Blood 2.5 g/dL (2.2-4.0); Magnesium, Blood 1.8 mg/dL (1.6-2.4); Potassium, Blood 4.2 mmol/L (3.5-5.5); Total Protein, Blood 4.7 g/dL (6.4-8.2)
[2022-07-19 16:41] LABS: IMMATURE RETIC FRACTION 40.6 % (2.3-16.0); RETIC HGB EQUIVALENT 33.6 pg (28.20-36.60); RETICULOCYTE COUNT PERCENT 2.54 % (0.50-2.50)
--- NOTE | 2022-07-20 00:19 | NUR ---
ARRIVAL TO [facility]/ASSUMPTION OF CARE PT ARRIVED TO [facility] AT APPROXIMATELY 2114. PT WAS SLID OVER FROM ER GURNEY TO HOSPITAL BED WITH 4 CLINICAL STAFF MEMBERS VSS, SpO2> 92% RA, DENIES SOB. BP SOFT WITH SBP IN 90's, PT ASYMPTOMATIC, RECIEVING NS @ 75mLs/hr. SINUS 80's, PT HAS LVAD, IT IS ALARMING "LOW VOLUME" PT AND PHYSICIAN AT AWARE. PT HAS EXTRA LVAD BATTERIES IN ROOM. PT PERSONAL WHEELCHAIR IN [facility]'s BATHROOM. OTHER PT BELONGINGS ON BENCH IN ROOM. PT IS A&Ox4, CALLS AND COMMUNICATES NEEDS APPROPRIATELY. BED IN LOWEST POSITION, CALL LIGHT IN REACH.
--- NOTE | 2022-07-20 05:56 | NUR ---
SHIFT SUMMARY SEE PREVIOUS NOTE. NO ACUTE EVENTS OVER NIGHT. VSS, BP IMPROVING, SBP 90-100's. WILL REPORT TO DAY SHIFT RN.
[2022-07-20 06:41] LABS: BASOPHILS ABSOLUTE AUTO 0.09 K/mm3 (0.00-0.23); BASOPHILS PERCENT AUTO 1 % (0-2); EOSINOPHILS ABSOLUTE AUTO 0.21 K/mm3 (0.00-0.68); EOSINOPHILS PERCENT AUTO 2 % (0-6); Hematocrit 33.5 % (37.0-53.0); Hemoglobin 10.9 g/dL (13.5-17.5); IMMATURE GRAN ABSOLUTE AUTO 0.06 K/mm3 (0.00-0.10); IMMATURE GRAN PERCENT AUTO 1 % (0-1); LYMPHOCYTES ABSOLUTE AUTO 2.01 K/mm3 (0.84-5.20); LYMPHOCYTES PERCENT AUTO 20 % (21-46); MONOCYTES ABSOLUTE AUTO 0.63 K/mm3 (0.16-1.47); MONOCYTES PERCENT AUTO 6 % (4-13); Mean Corpuscular HGB 27.2 pg (26.0-34.0); Mean Corpuscular HGB Conc 32.5 g/dL (31.5-36.5); Mean Corpuscular Volume 84 fL (80-100); Mean Platelet Volume 10.8 fL (9.1-12.4); NEUTROPHILS ABSOLUTE AUTO 7.02 K/mm3 (1.96-9.15); NEUTROPHILS PERCENT AUTO 70 % (41-73); NRBC ABSOLUTE 0.03 K/mm3 (0.00-0.02); NRBC Auto 0.3 /100 WBC (0.0-0.2); Platelet Count 182 K/mm3 (150-400); RDW Coefficient Variation 25.6 % (11.7-14.2); RDW Standard Deviation 75.7 fL (35.1-46.3); Red Blood Cell Count 4.01 M/mm3 (4.30-5.90); White Blood Cell Count 10.02 K/mm3 (4.00-11.30)
[2022-07-20 06:57] LABS: International Normalized Ratio 2.48; Prothrombin Time Results 24.5 Sec (9.7-11.5)
[2022-07-20 07:21] LABS: Albumin, Blood 2.5 g/dL (3.4-5.0); Bilirubin, Total 1.9 mg/dL (0.1-1.0); Bun/Creatinine Ratio 17.7 (12.0-20.0); Calcium, Blood 7.7 mg/dL (8.5-10.1); Creatinine, Blood 1.41 mg/dL (0.60-1.20); Globulin, Blood 2.5 g/dL (2.2-4.0); Potassium, Blood 3.9 mmol/L (3.5-5.5)
--- NOTE | 2022-07-20 15:48 | NUR ---
C/O SOB PT C/O SOB STATING NEEDING LASIX. BP STILL SOFT, SPO2 100%, DOESN'T APPEAR IN DISTRESS, LS CLEAR. SPOKE WITH DR. ENG AND PLACED ORDER FOR SL, NOT WANTING TO DIURESE AT THIS TIME DUE TO SOFT BP'S. PT AGREEABLE TO THIS PLAN.
[2022-07-20 15:51] LABS: SARS-Cov-2 (COVID-19) PCR, MMC NEGATIVE (NEGATIVE)
--- NOTE | 2022-07-20 18:50 | NUR ---
TRANSFER NOTE PT ALERT AND ORIENTEDx3, ANXIOUS BUT COOPERATIVE WITH CARE. PT DENIES PAIN, CHEST PAIN, SOB, NAUSEAS, AND DIZZINESS. PT REPORTS BASELINE NUMBNESS AND TINGLING TO LEFT LEG AND TIPS OF FINGERS. LVAD IN PLACE DRESSING TO RIGHT ABD NOTED, LVAD ALARMED FOR MAJORITY OF SHIFT LOW FLOW, PT SWITCHED OUT BATTERIER EARILER IN SHIFT. TELE SINUS/TACH 90-100'S BP SOFT T/O SHIFT. SPO2 >90% ON RA, BREAHITNG EVENING AND UNLABORED, PT HAD EPISODE OF RESPITORY DISTRESS THIS AFTERNOON, MD NOTIFIED AND FLUIDS STOPPED. OTHER VSS. PT DISCUSSED TRASNFER TO [facility] WITH DR AND AGREEABLE TO TRANSFER. REPORT GIVEN TO RN ASSUMING CARE OF PATIENT AT APPROX 1810. PT LEFT ROOM WITH [facility] AT APPROX 1845. PT LEFT MOTORIZED WHEELCHAIR, IT WAS UNABLE TO TRANSPORT IN AMBULANCE, FACESHEET ADDED TO IT AND PLACE IN GARAGE.
[2022-07-20 19:25] LABS: Campylobacter Sp Not Detected (NOT DETECT); Cryptosporidium Not Detected (NOT DETECT); Cyclospora Cayetanensis Not Detected (NOT DETECT); E. Coli O157 Not Detected (NOT DETECT); Enteroaggregative E. coli-EAEC Not Detected (NOT DETECT); Enteropathogenic E. coli-EPEC Not Detected (NOT DETECT); Enterotoxigenic E. coli-ETEC Not Detected (NOT DETECT); Plesiomonas Shigelloides Not Detected (NOT DETECT); Salmonella Sp Not Detected (NOT DETECT); Shiga Toxin-prod E. coli-STEC Not Detected (NOT DETECT); Shigella/Enteroin E. coli-EIEC Not Detected (NOT DETECT); Vibrio Cholerae Not Detected (NOT DETECT); Vibrio Sp Not Detected (NOT DETECT); Yersinia Enterocolitica Detected (NOT DETECT)
[2022-07-20 19:26] LABS: Adenovirus F 40/41 Not Detected (NOT DETECT); Astrovirus Not Detected (NOT DETECT); Entamoeba Histolytica Not Detected (NOT DETECT); Giardia Lamblia Not Detected (NOT DETECT); Norovirus GI/GII Not Detected (NOT DETECT); Rotavirus A Not Detected (NOT DETECT); Sapovirus Not Detected (NOT DETECT)
--- NOTE | 2022-07-20 19:26 | NUR ---
MOTORIZED WHEELCHAIR PT'S MOTORIZED WITH SECURITY IN GARAGE FOR PICKUP. FACESHEET AND PATIENT LABEL PLACED ON .
== END 2022-07-20 18:45 | disposition short-term general hospital (02) | DRG 315 ==
LOC: ER 14:36 → PCU 19:32 → ERHOLD 19:32 → PCU 19:32
PROVIDERS: Internal Medicine; Student in an Organized Health Care Education/Training Program; ADMIT Internal Medicine
DX: T82.897A Other specified complication of cardiac prosthetic devices, implants and grafts, initial encounter (principal); A04.72 Enterocolitis due to Clostridium difficile, not specified as recurrent; I13.0 Hypertensive heart and chronic kidney disease with heart failure and stage 1 through stage 4 chronic kidney disease, or unspecified chronic kidney disease; I50.22 Chronic systolic (congestive) heart failure; I95.9 Hypotension, unspecified; J44.9 Chronic obstructive pulmonary disease, unspecified; E88.09 Other disorders of plasma-protein metabolism, not elsewhere classified; K80.20 Calculus of gallbladder without cholecystitis without obstruction; K82.8 Other specified diseases of gallbladder; K73.9 Chronic hepatitis, unspecified; I48.0 Paroxysmal atrial fibrillation; E11.22 Type 2 diabetes mellitus with diabetic chronic kidney disease; N18.30 Chronic kidney disease, stage 3 unspecified; K74.60 Unspecified cirrhosis of liver; D63.1 Anemia in chronic kidney disease; M19.90 Unspecified osteoarthritis, unspecified site; G51.0 Bell's palsy; I27.20 Pulmonary hypertension, unspecified; D69.6 Thrombocytopenia, unspecified; E86.0 Dehydration; Z20.822 Contact with and (suspected) exposure to COVID-19; Z98.890 Other specified postprocedural states; I25.2 Old myocardial infarction; Z87.891 Personal history of nicotine dependence; Z88.8 Allergy status to other drugs, medicaments and biological substances; Z79.899 Other long term (current) drug therapy; Z79.51 Long term (current) use of inhaled steroids; Z79.82 Long term (current) use of aspirin; Z79.4 Long term (current) use of insulin; Z79.891 Long term (current) use of opiate analgesic; Z79.01 Long term (current) use of anticoagulants; Z89.611 Acquired absence of right leg above knee
CPT/HCPCS: 36415; 71045; 71250; 74176; 80053; 82947; 83605; 83735; 83880; 84484; 85025; 85045; 85610; 86850; 86900; 86901; 87040; 87324; 87507; 93005; 93010; 93306; 94640; 94664; 96365; 96366; 99285-25; A9270; J1815; J3475; J7030; P9047; U0004

== ENCOUNTER 2022-11-15 02:19 | Day surgery (SDC) | payer OTHER ==
[2022-11-15] MEDS ORDERED: BACITO TOP (12:33)
[2022-11-15] MEDS ORDERED: DOXE150 PO (12:36)
[2022-11-15] MEDS ORDERED: COLCHICINE0.6 MG PO (12:36)
[2022-11-15] MEDS ORDERED: LOSA50 PO (12:39)
[2022-11-15] MEDS ORDERED: CULTURELLE KID1 EA13 PO (12:39)
[2022-11-15] MEDS ORDERED: TRAZ50 PO (12:40)
--- NOTE | 2022-11-15 15:27 | NUR ---
1215 LVAD DRESSING CHANGE: STERILE TECHNIQUE MAINTAINED. USED DRESSING KIT PROVIDED BY PT. CLEANED SITE WITH 3 CHLOROPREP. PLACED SILVEDENE PATCH ON SITE, MOISTENED WITH PROVIDED STERILE NS PAD. CUSHIONED DRIVELINE WITH STERILE GAUZE PROVIDED. PLACED CLEAR PROVIDED DRESSING OVER SITE. SECURED WITH NEW SECUREMENT DEVICE PROVIDED BY THE PATIENT. PT TOLERATED WELL.
== END 2022-11-15 12:15 | disposition home or self-care (01) ==
LOC: ATC 02:19
DX: Z45.2 Encounter for adjustment and management of vascular access device (principal); I13.0 Hypertensive heart and chronic kidney disease with heart failure and stage 1 through stage 4 chronic kidney disease, or unspecified chronic kidney disease; I50.23 Acute on chronic systolic (congestive) heart failure; I48.0 Paroxysmal atrial fibrillation; E11.42 Type 2 diabetes mellitus with diabetic polyneuropathy; N18.9 Chronic kidney disease, unspecified; E11.22 Type 2 diabetes mellitus with diabetic chronic kidney disease; Z89.611 Acquired absence of right leg above knee; Z79.899 Other long term (current) drug therapy; Z79.4 Long term (current) use of insulin; Z79.01 Long term (current) use of anticoagulants; Z88.8 Allergy status to other drugs, medicaments and biological substances; Z91.040 Latex allergy status; Z87.891 Personal history of nicotine dependence
CPT/HCPCS: 99212

== ENCOUNTER 2022-11-15 02:37 | Day surgery (SDC) | payer OTHER ==
[2022-11-15] MEDS ORDERED: BACITO TOP (12:33)
[2022-11-15] MEDS ORDERED: COLCHICINE0.6 MG PO (12:36)
[2022-11-15] MEDS ORDERED: DOXE150 PO (12:36)
[2022-11-15] MEDS ORDERED: CULTURELLE KID1 EA13 PO (12:39)
[2022-11-15] MEDS ORDERED: LOSA50 PO (12:39)
[2022-11-15] MEDS ORDERED: TRAZ50 PO (12:40)
== END 2022-11-15 22:47 | disposition home or self-care (01) ==
LOC: WOUND 02:37
DX: E11.622 Type 2 diabetes mellitus with other skin ulcer (principal); L98.492 Non-pressure chronic ulcer of skin of other sites with fat layer exposed; L97.322 Non-pressure chronic ulcer of left ankle with fat layer exposed; E11.621 Type 2 diabetes mellitus with foot ulcer; L97.528 Non-pressure chronic ulcer of other part of left foot with other specified severity; L97.522 Non-pressure chronic ulcer of other part of left foot with fat layer exposed; E11.51 Type 2 diabetes mellitus with diabetic peripheral angiopathy without gangrene; E11.40 Type 2 diabetes mellitus with diabetic neuropathy, unspecified; L89.893 Pressure ulcer of other site, stage 3; L89.892 Pressure ulcer of other site, stage 2; I50.84 End stage heart failure; S81.002A Unspecified open wound, left knee, initial encounter; X58.XXXA Exposure to other specified factors, initial encounter; R77.0 Abnormality of albumin; Z89.611 Acquired absence of right leg above knee; Z91.040 Latex allergy status; Z87.891 Personal history of nicotine dependence; J45.909 Unspecified asthma, uncomplicated
CPT/HCPCS: A9270; G0463

== ENCOUNTER 2022-11-22 02:33 | Day surgery (SDC) | payer OTHER ==
[~2022-11-22 02:33] MED LIST changes: +BACITO TOP; +COLCHICINE0.6 MG PO; +CULTURELLE KID1 EA13 PO; +DOXE150 PO; +LOSA50 PO; +TRAZ50 PO
[2022-11-22 14:49] VITALS: BP 136/101
--- NOTE | 2022-11-22 17:18 | NUR ---
LVAD DRESSING CHANGED WITH PT'S ASSISTANCE. OLD DRESSING REMOVED. PT WITH SMALL RED AREA WHERE LVAD TUBE WAS RUBBING ON SKIN. CLEANED THE SITE WITH 3 HIBECLEN GAUZE. ALSO REINSED AREA WITH NS. SITE DRIED WITH GAUZE. ALCOHOL PADS USED TO DRY SKIN. SKIN PREP APPLIED AND LET DRY. APPLIED 2 STERILE 2X2 DRAIN DRESSING OVER SITE OF INSERTION. 2 STERILE 4X4 FOLDED OVER SITE AND STERILE DRESSING APPLIED X2 OVER SITE AND LINE. SECUREMENT DIVICE PLACED AT END OF DRESSING. PT WITH LOTS OF STOMACH GAS AND STATES IT IS FROM METFORMIN. PT IS VERY UNCOMFORTABLE. PT TOLERATED DRESSING WELL.
== END 2022-11-22 14:53 | disposition home or self-care (01) ==
LOC: ATC 02:33
DX: Z48.01 Encounter for change or removal of surgical wound dressing (principal); Z95.811 Presence of heart assist device
CPT/HCPCS: 99212

== ENCOUNTER 2022-11-22 02:42 | Day surgery (SDC) | payer OTHER | END 2022-11-22 22:55 | disposition home or self-care (01) | LOC: WOUND 02:42 | DX: E11.621 Type 2 diabetes mellitus with foot ulcer (principal); L97.522 Non-pressure chronic ulcer of other part of left foot with fat layer exposed; E11.622 Type 2 diabetes mellitus with other skin ulcer; L97.322 Non-pressure chronic ulcer of left ankle with fat layer exposed; L97.822 Non-pressure chronic ulcer of other part of left lower leg with fat layer exposed; I50.84 End stage heart failure; Z89.611 Acquired absence of right leg above knee; I87.2 Venous insufficiency (chronic) (peripheral); Z86.718 Personal history of other venous thrombosis and embolism; Z79.01 Long term (current) use of anticoagulants | CPT/HCPCS: A9270; G0463 ==

== ENCOUNTER 2022-11-29 01:43 | Day surgery (SDC) | payer OTHER ==
[2022-11-29 15:42] VITALS: BP 104/61
--- NOTE | 2022-11-29 17:08 | NUR ---
1610: LVAD DRESSING CHANGE: STERILE TECHNIQUE MAINTAINED. OLD DRESSING REMOVED. BROWN DRIED DRAINAGE NOTED AROUND INSERTION SITE. USED DRESSING KIT PROVIDED BY PT, CLEANSED THE SITE WITH HIBECLENS SOAKED STERILE GAUZE, PATTED DRY WITH STERILE GAUZE. APPLIED SKIN PREP TO DRESSING SITE. APPLIED DRAINAGE PADS AROUND SITE AND COVERED WITH STERILE 4X4S AND PLACED TWO ADHESIVE DRESSINGS OVER SITE. SECUREMENT DEVICE PLACED TO THE RIGHT OF THE DRESSING. PT TOLERATED WELL.
== END 2022-11-29 16:12 | disposition home or self-care (01) ==
LOC: ATC 01:43
DX: Z48.01 Encounter for change or removal of surgical wound dressing (principal); Z95.811 Presence of heart assist device
CPT/HCPCS: 99211

== ENCOUNTER 2022-11-29 14:15 | Day surgery (SDC) | payer OTHER | END 2022-11-29 22:45 | disposition home or self-care (01) | LOC: WOUND 14:15 | DX: E11.621 Type 2 diabetes mellitus with foot ulcer (principal); E11.622 Type 2 diabetes mellitus with other skin ulcer; L97.822 Non-pressure chronic ulcer of other part of left lower leg with fat layer exposed; S81.002D Unspecified open wound, left knee, subsequent encounter; Z89.611 Acquired absence of right leg above knee; I50.84 End stage heart failure; E11.51 Type 2 diabetes mellitus with diabetic peripheral angiopathy without gangrene; L97.522 Non-pressure chronic ulcer of other part of left foot with fat layer exposed | CPT/HCPCS: A9270; G0463 ==

== ENCOUNTER 2022-12-06 01:31 | Day surgery (SDC) | payer OTHER ==
[2022-12-06 15:50] VITALS: BP 142/79
--- NOTE | 2022-12-06 17:15 | NUR ---
1557: LVAD DRESSING CHANGE: STERILE TECHNIQUE MAINTAINED THROUGOUT. OLD DRESSING REMOVED. BROWN DRIED DRAINAGE NOTED AROUND INSERTION SITE. USED DRESSING KIT PROVIDED BY PATIENT. CLEANSED THE SITE WITH CHG AND DABBED IT WITH STERILE NS SOAKED STERILE GAUZE, ALLOWED TO AIR DRY. PLACED SILVEDENE PATCH ON INSERTION SITE, MOISTENED WITH STERILE NS. APPLIED DRAINAGE PADS TO INSERTION SITE, COVERED WITH STERILE 4X4S AND PLACED TWO ADHESIVE DRESSINGS OVER SITE. DRIVELINE SECUREMENT DEVICE WAS PLACED TO THE RIGHT OF THE DRESSING. PT TOLERATED WELL.
== END 2022-12-06 15:57 | disposition home or self-care (01) ==
LOC: ATC 01:31
DX: Z48.01 Encounter for change or removal of surgical wound dressing (principal); Z95.811 Presence of heart assist device
CPT/HCPCS: 99211

== ENCOUNTER 2022-12-14 02:56 | Day surgery (SDC) | payer OTHER ==
--- NOTE | 2022-12-14 16:33 | NUR ---
LVAD DRESSING CHANGE WITH PATIENTS ASSISTANCE. OLD DRESSING REMOVED. SCANT AMOUNT OF BROWN DRY DRAINAGE NOTED AROUND INSERTION SITE. STERILE DRESSING CHANGE KITS PROVIDED BY THE PATIENT WERE USED. STERILE TECHNIQUE MAINTAINED THROUGHOUT. CLEANSED THE SKIN WITH 4 HIBICLENS AND SALINE SOAKED GAUZE FOLLOWED BY STERILE SALINE WIPES. ALLOWED TO AIR DRY. APPLIED 2 STERILE 2X2 DRAIN GAUZE DRESSINGS, FOLLOWED BY 2 STERILE 4X4S FOLDED IN HALF. STERILE DRESSING PROVIDED FROM THE KIT X2 APPLIED. NEW SECUREMENT DEVICE PLACED JUST BENEATH THE STERILE DRESSING PATIENT REQUESTED.
== END 2022-12-14 15:47 | disposition home or self-care (01) ==
LOC: ATC 02:56
DX: I50.9 Heart failure, unspecified (principal); Z89.422 Acquired absence of other left toe(s); E11.22 Type 2 diabetes mellitus with diabetic chronic kidney disease; N18.9 Chronic kidney disease, unspecified; E11.40 Type 2 diabetes mellitus with diabetic neuropathy, unspecified; M17.12 Unilateral primary osteoarthritis, left knee
CPT/HCPCS: 99212

== ENCOUNTER 2022-12-26 01:38 | Day surgery (SDC) | payer OTHER ==
[2022-12-26 15:27] VITALS: BP 185/95
--- NOTE | 2022-12-26 16:00 | NUR ---
LVAD DRSG CHANGE: OLD DRSG REMOVED. SCANT BROWN/PERALES DRNG NOTED. STERILE PROCEDURE STARTED. WOUND CLEANSED w/ 4 HIBACLENS & SALINE SOAKED GAUZE THEN 2 STERILE SALINE WIPES. ALLOWED TO AIR DRY WHILE NEW STERILE GLOVES PLACED. APPLIED STERILE GAUZE & DRSGS OVER SITE. NEW SECUREMENT DEVICE PLACED DOWN FROM DRSG.
== END 2022-12-26 16:03 | disposition home or self-care (01) ==
LOC: ATC 01:38
DX: I50.9 Heart failure, unspecified (principal)
CPT/HCPCS: 99212

== ENCOUNTER → 2022-12-30 | Outpatient (CLI) | payer OTHER ==
[2022-12-30 16:26] LABS: Bun/Creatinine Ratio 15.5 (12.0-20.0); Creatinine, Blood 0.78 mg/dL (0.60-1.20); Potassium, Blood 3.2 mmol/L (3.5-5.5)
== END | disposition home or self-care (01) ==
LOC: LAB 15:20 → LAB SHORT 15:20
PROVIDERS: Internal Medicine
DX: I50.23 Acute on chronic systolic (congestive) heart failure (principal); Z95.811 Presence of heart assist device
CPT/HCPCS: 80048

== ENCOUNTER 2023-01-04 00:37 | Day surgery (SDC) | payer OTHER ==
[2023-01-04 16:01] VITALS: BP 85/58
--- NOTE | 2023-01-04 16:03 | NUR ---
LVAD DRESSING CHANGE: OLD DRESSING REMOVED, APPROX 1 TSP BROWN DRAINAGE NOTED. INSERTION SITE AND ELI SKIN IS P/W/D. USING STERILE TECHNIQUE THE SITE WAS CLEANED WITH PROVIDED HIBECLENS/NS SOAKED STERILE GAUZE. REMOVED HIBECLENS USING PROVIDED STERILE SALINE GAUZE THEN ALLOWED TO AIR DRY. CHANGED GLOVES. APPLIED NS SOAKED SILVEDENE DRAIN DRESSING TO INSERTION SITE. APPPLIED SKIN PREP FOLLOWED BY FOLDED 4X4 DRAINAGE GAUZE X2 THEN COVERED WITH 2 MORE FOLDED 4X4 STERILE GAUZES. PLACED PROVIDED TEGADERM WINDOW DRESSING OVER THE GAUZE, MAKING SURE THE ADHESIVE STUCK TO THE SKIN. ADHERED TWO ADDITIONAL TRANSPARENT DRESSINGS AT PT REQUEST. SECUREMENT DEVICE PLACED. PT TOLERATED WELL.
== END 2023-01-04 15:45 | disposition home or self-care (01) ==
LOC: ATC 00:37
DX: Z48.01 Encounter for change or removal of surgical wound dressing (principal); I50.9 Heart failure, unspecified; Z95.811 Presence of heart assist device
CPT/HCPCS: 99212

== ENCOUNTER 2023-01-04 00:39 | Day surgery (SDC) | payer OTHER | END 2023-01-04 22:43 | disposition home or self-care (01) | LOC: WOUND 00:39 | DX: E11.622 Type 2 diabetes mellitus with other skin ulcer (principal); E11.621 Type 2 diabetes mellitus with foot ulcer; L97.522 Non-pressure chronic ulcer of other part of left foot with fat layer exposed; L97.822 Non-pressure chronic ulcer of other part of left lower leg with fat layer exposed; L97.322 Non-pressure chronic ulcer of left ankle with fat layer exposed; I70.202 Unspecified atherosclerosis of native arteries of extremities, left leg; S81.002D Unspecified open wound, left knee, subsequent encounter; Z89.611 Acquired absence of right leg above knee; I50.84 End stage heart failure; R77.0 Abnormality of albumin; I87.2 Venous insufficiency (chronic) (peripheral) | CPT/HCPCS: A9270; G0463 ==

== ENCOUNTER 2023-01-11 03:34 | Day surgery (SDC) | payer OTHER ==
--- NOTE | 2023-01-11 11:08 | NUR ---
LVAD DRESSING CHANGE LVAD DSG CHANGED. OLD DRESSINGS REMOVED. ONE INCH BROWN CIRCULAR SPOT ON OLD DRESSING NOTED. INSERTION SITE P/W/D. A COUPLE PIN POINT ROUND RED SPOTS NOTED UNDER THE LOWER EDGE OF THE DRIVE LINE. STERILE TECHNIQUE MAINTAINED THROUGHOUT DSG CHANGE. SEVERAL SETS OF STERILE GLOVES USED. DRIVE LINE SITE CLEANED WITH HIBECLENS/NS SOAKED 4X4 GAUZE. USED STERILE SALINE TO REMOVE HIBECLENS AND ALLOWED TO AIR DRY. SILVADENE DRESSING APPLIED TO INSERTION SITE, ALONG WITH TWO STERILE DRAIN DRESSINGS. STERILE 4X4 GAUZE DRESSINGS APPLIED OVER THE TOP. PLACED THE WINDOW TEGADERM OVER THE TOP OF THE GAUZE. TWO ADDITIONAL TELFA ADHESIVE DRESSINGS PLACED OVER THE TOP OF THE TEGADERM DRESSING ENSURING ALL THE EDGES WERE SEALED. LINE SECUREMENT DEVICE INTACT. PT WITHOUT COMPLAINTS. ALL SUPPLIES USED WERE FROM PT'S STERILE DSG CHANGE KITS THAT HE SUPPLIED.
== END 2023-01-11 11:02 | disposition home or self-care (01) ==
LOC: ATC 03:34
DX: Z46.89 Encounter for fitting and adjustment of other specified devices (principal); I50.9 Heart failure, unspecified; I48.91 Unspecified atrial fibrillation; E11.42 Type 2 diabetes mellitus with diabetic polyneuropathy; N18.9 Chronic kidney disease, unspecified; E11.22 Type 2 diabetes mellitus with diabetic chronic kidney disease
CPT/HCPCS: 99212

== ENCOUNTER 2023-01-11 03:41 | Day surgery (SDC) | payer OTHER | END 2023-01-11 22:51 | disposition home or self-care (01) | LOC: WOUND 03:41 | DX: E11.621 Type 2 diabetes mellitus with foot ulcer (principal); L97.522 Non-pressure chronic ulcer of other part of left foot with fat layer exposed; E11.622 Type 2 diabetes mellitus with other skin ulcer; L97.823 Non-pressure chronic ulcer of other part of left lower leg with necrosis of muscle; L97.329 Non-pressure chronic ulcer of left ankle with unspecified severity; S81.002D Unspecified open wound, left knee, subsequent encounter; X58.XXXD Exposure to other specified factors, subsequent encounter; S61.402A Unspecified open wound of left hand, initial encounter; L08.9 Local infection of the skin and subcutaneous tissue, unspecified; X58.XXXA Exposure to other specified factors, initial encounter; E11.51 Type 2 diabetes mellitus with diabetic peripheral angiopathy without gangrene; I70.202 Unspecified atherosclerosis of native arteries of extremities, left leg; I50.84 End stage heart failure; R77.0 Abnormality of albumin; Z89.611 Acquired absence of right leg above knee | CPT/HCPCS: A9270; G0463 ==

== ENCOUNTER 2023-01-19 03:32 | Day surgery (SDC) | payer OTHER | END 2023-01-19 22:41 | disposition home or self-care (01) | LOC: WOUND 03:32 | DX: E11.621 Type 2 diabetes mellitus with foot ulcer (principal); L97.522 Non-pressure chronic ulcer of other part of left foot with fat layer exposed; E11.622 Type 2 diabetes mellitus with other skin ulcer; L97.823 Non-pressure chronic ulcer of other part of left lower leg with necrosis of muscle; S81.002D Unspecified open wound, left knee, subsequent encounter; X58.XXXD Exposure to other specified factors, subsequent encounter; E11.51 Type 2 diabetes mellitus with diabetic peripheral angiopathy without gangrene; I70.202 Unspecified atherosclerosis of native arteries of extremities, left leg; I50.84 End stage heart failure; Z89.611 Acquired absence of right leg above knee; R77.0 Abnormality of albumin | CPT/HCPCS: A9270; G0463 ==

== ENCOUNTER 2023-01-19 03:37 | Day surgery (SDC) | payer OTHER ==
--- NOTE | 2023-01-19 11:20 | NUR ---
LVAD DRESSING CHANGE OLD DRESSING REMOVED. SCANT AMOUNT OF SEROUS DRAINAGE FROM DRIVE LINE INSERTION SITE NOTED. DRIVE LINE INSERTION SITE AND SURROUNDING AREA CLEANED WITH HIBICLENS/NS SOAKED 4X4S AND THEN CLEANED WITH STERILE SALINE WIPES. ALLOWED SITE TO AIR DRY. SLIVADENE DRESSING APPLIED TO INSERTION SITE ALONG WITH TWO DRAIN DRESSINGS. 4X4S PLACED OVER THE TOP AND THEN COVERED WITH THE WINDOW TEGADERM OVER THE TOP. TWO ADDITIONAL TELFA ADHESIVE DRESSINGS APPLIED OVER THE TOP OF THE FIRST TEGADERM. ALL EDGES OF DRESSINGS ARE SEALED. LINE SECUREMENT DEVICE CHANGED. OLD SECUREMENT DEVICE REMOVED, CLEANED SITE WITH CHLORPREP ALLOWED TO DRY. SKIN PREP APPLIED WITH NEW SECUREMENT DEVICE. ALL SUPPLIES USED WERE FROM PROVIDED KITS THAT PT PROVIDES. STERILE GLOVES CHANGED SEVERAL TIMES DURING PROCEDURE TO MAINTAIN STERILITY DURING THE DRESSING CHANGE PROCEDURE. PT TOLERATED DRESSING CHANGE WELL.
== END 2023-01-19 11:20 | disposition home or self-care (01) ==
LOC: ATC 03:37
DX: I50.9 Heart failure, unspecified (principal); Z89.611 Acquired absence of right leg above knee; Z86.718 Personal history of other venous thrombosis and embolism; E11.42 Type 2 diabetes mellitus with diabetic polyneuropathy; E11.22 Type 2 diabetes mellitus with diabetic chronic kidney disease; N18.9 Chronic kidney disease, unspecified; M17.12 Unilateral primary osteoarthritis, left knee
CPT/HCPCS: 99212

== ENCOUNTER 2023-01-26 02:56 | Day surgery (SDC) | payer OTHER ==
--- NOTE | 2023-01-26 11:18 | NUR ---
LVAD DRESSING CHANGE. OLD LVAD DRESSING REMOVED. APPROXIMATELY 1 TEASPOON AMOUNT OF BROWN DRAINAGE NOTED ON OLD LVAD DRESSING. SKIN AROUND INSERTION SITE WNL, NO EVIDENCE OF SKIN BREAKDOWN, SWELLING, HEAT, OR REDNESS. STERILE FIELD CREATED. MAINTAINING STERILE FIELD, LVAD DRIVE LINE CLEANSED WITH STERILE 4X4S SOAKED IN NS AND HIBECLENS. SKIN AIR DRIED AND STERILE SALINE USED AROUND SKIN AND DRIVE LINE TO FURTHER CLENSE THE AREA. SILVADENE DRESSING SOAKED IN STERILE SALINE PER PACKAGE DIRECTIONS AND APPLIED SILVER SIDE DOWN AT INSERTION SITE. TWO STERILE DRAIN DRESSINGS APPLIED OVER THE TOP FOLLOWED BY STERILE 4X4 DRESSINGS OVER THE TOP OF THE DRAIN DRESSINGS. WINDOW TEGADERM APPLIED OVER DRESSINGS AND A TELFA ADHESIVE DRESSING PLACED OVER THE TOP OF THE TEGADERM. LINE SECUREMENT DEVICE INTACT AND NOT CHANGED PER PT'S REQUEST. PT TOLERATED DRESSING CHANGE WELL. ALL SUPPLIES USED WERE SUPPLIED BY THE PATIENT.
[2023-01-26] MEDS ORDERED: METF500 PO (16:03)
== END 2023-01-26 10:46 | disposition home or self-care (01) ==
LOC: ATC 02:56
DX: Z48.01 Encounter for change or removal of surgical wound dressing (principal); I50.9 Heart failure, unspecified; I48.91 Unspecified atrial fibrillation; E11.22 Type 2 diabetes mellitus with diabetic chronic kidney disease; N18.9 Chronic kidney disease, unspecified; E11.42 Type 2 diabetes mellitus with diabetic polyneuropathy; Z89.611 Acquired absence of right leg above knee
CPT/HCPCS: 99212

== ENCOUNTER 2023-02-16 01:10 | Day surgery (SDC) | payer OTHER ==
[2023-02-16 11:20] VITALS: BP 120/76
--- NOTE | 2023-02-16 14:44 | NUR ---
LATE ENTRY - 1126 LVAD DRSG CHANGE - OLD DRSG REMOVED. SKIN P/W/D. SCANT AMOUNT OF BROWN PRESENT ON DRAIN GAUZE REMOVED. DRIVE LINE SITE CLEANSED WITH HIBICLENS AND SALINE SOLUTION AND ALLOWED TO AIR DRY. STERILE SALINE WIPES USED TO WASH SITE. TWO STERILE DRAIN GAUZES APPLIED. TWO STERILE 4/4 GAUZE APPLIED. WINDOW TEGADERM PLACED OVER THE TOP, TWO ADDITIONAL TELFA DRSGS APPLIED AND EDGES SEALED COMPLETELY. LINE SECUREMENT DEVICE INTACT, PATIENT REQUESTS IT REMAINS IN PLACE. SEVERAL SETS OF STERILE GLOVES USED THROUGHOUT DRSG CHANGE AND STERILE TECHNIQUE MAINTAINED. ALL SUPPLIED WERE PROVIDED BY THE PATIENT.
== END 2023-02-16 11:26 | disposition home or self-care (01) ==
LOC: ATC 01:10
DX: Z48.01 Encounter for change or removal of surgical wound dressing (principal); I50.9 Heart failure, unspecified; Z89.611 Acquired absence of right leg above knee
CPT/HCPCS: 99212

== ENCOUNTER 2023-02-16 01:34 | Day surgery (SDC) | payer OTHER | END 2023-02-16 22:55 | disposition home or self-care (01) | LOC: WOUND 01:34 | DX: E11.622 Type 2 diabetes mellitus with other skin ulcer (principal); E11.621 Type 2 diabetes mellitus with foot ulcer; S81.002D Unspecified open wound, left knee, subsequent encounter; I70.202 Unspecified atherosclerosis of native arteries of extremities, left leg; I50.84 End stage heart failure; R77.0 Abnormality of albumin; Z89.611 Acquired absence of right leg above knee | CPT/HCPCS: A9270 ==

== ENCOUNTER 2023-02-23 01:04 | Day surgery (SDC) | payer OTHER ==
--- NOTE | 2023-02-23 11:49 | NUR ---
LVAD DRESSING CHANGE TODAY. PT ARRIVED AT 1031. OLD LVAD DRESSING REMOVED. NO DRAINAGE NOTED ON OLD DRESSING. INSERTION SITE WNL. STERILE TECHNIQUE MAINTAINED THROUGHOUT DRESSING CHANGE PROCEDURE. DRIVE LINE SITE CLEANSED WITH HIBECLENS/ STERILE NS SOAKED 4X4S AND ALLOWED TO AIR DRY. SILVADENE DRESSING LIGHTLY SOAKED IN STERILE NS APPLIED TO INSERTION SITE. STERILE 2X2 DRESSINGS APPLIED OVER SILVADENE AND TWO STERILE DRAIN DRESSINGS APPLIED OVER THE TOP. STERILE 4X4 DRESSIGN AND WINDOW TEGADERM DRESSING APPLIED OVER THE TOP. OLD SECUREMENT DEVICE REMOVED AND NEW SECUREMENT DEVICE APPLIED. PT WITHOUT COMPLAINTS. ALL SUPPLIES USED WERE FROM PATIENTS STERILE DRESSING CHANGE KITS THAT HE SUPPLIED. PT DISCHARGED AT 1055.
== END 2023-02-23 10:55 | disposition home or self-care (01) ==
LOC: ATC 01:04
DX: I50.9 Heart failure, unspecified (principal); E11.9 Type 2 diabetes mellitus without complications; Z89.611 Acquired absence of right leg above knee
CPT/HCPCS: 99212

== ENCOUNTER 2023-02-23 01:07 | Day surgery (SDC) | payer OTHER | END 2023-02-23 22:37 | disposition home or self-care (01) | LOC: WOUND 01:07 | DX: S81.002D Unspecified open wound, left knee, subsequent encounter (principal); X58.XXXD Exposure to other specified factors, subsequent encounter; E11.621 Type 2 diabetes mellitus with foot ulcer; E11.622 Type 2 diabetes mellitus with other skin ulcer; I70.202 Unspecified atherosclerosis of native arteries of extremities, left leg; Z89.611 Acquired absence of right leg above knee; I50.84 End stage heart failure; R77.0 Abnormality of albumin | CPT/HCPCS: G0463 ==

== ENCOUNTER 2023-03-02 02:59 | Day surgery (SDC) | payer OTHER ==
[2023-03-02 10:25] VITALS: BP 129/98
--- NOTE | 2023-03-02 11:56 | NUR ---
LVAD DRSG CHANGE OLD DRSG REMOVED. 1MM RED SPOT NOTED UNDER THE DRIVE LINE CLOSE TO INSERTION SITE. SKIN IS P/W/D. DRIVE LINE SITE CLEANSED WITH HIBICLENS AND SALINE MIXTURE. SATERILE SALINE WIPES USED TO WASH OFF HIBICLENS SOLUTION AND ALLOWED TO AIR DRY. SILVADENE DRAIN SPONGE AND ADDITONAL DRAIN SPONGE APPLIED TO INSERTION SITE, PROVIDED IN STERILE KIT. TWO STERILE 4X4 GAUZE APPLIED OVER TOP FOLLOWED BY WINDOW TEGADERM. ADDITIONAL TELFA DRSG PLACED OVER THE OF DRSG AND ALL EDGES SEALED. LINE SECUREMENT DEVICE CHANGED. PATIENT WITHOUT COMPLAINTS. STERILE TECHNIQUE MAINTAINED T/O PROCEDURE. SEVERAL SET OF STERILE GLOVES USED. ALL SUPPLIES PROVIDED BY THE PATIENT HOME STERILE KITS.
== END 2023-03-02 10:43 | disposition home or self-care (01) ==
LOC: ATC 02:59
DX: Z48.01 Encounter for change or removal of surgical wound dressing (principal); I50.9 Heart failure, unspecified; Z95.811 Presence of heart assist device
CPT/HCPCS: 99212

== ENCOUNTER 2023-03-02 03:09 | Day surgery (SDC) | payer OTHER | END 2023-03-02 22:40 | disposition home or self-care (01) | LOC: WOUND 03:09 | DX: E11.621 Type 2 diabetes mellitus with foot ulcer (principal); L97.522 Non-pressure chronic ulcer of other part of left foot with fat layer exposed; E11.622 Type 2 diabetes mellitus with other skin ulcer; L97.822 Non-pressure chronic ulcer of other part of left lower leg with fat layer exposed; E11.51 Type 2 diabetes mellitus with diabetic peripheral angiopathy without gangrene; I70.202 Unspecified atherosclerosis of native arteries of extremities, left leg; Z89.611 Acquired absence of right leg above knee; S81.002D Unspecified open wound, left knee, subsequent encounter; X58.XXXD Exposure to other specified factors, subsequent encounter; I50.84 End stage heart failure; R77.0 Abnormality of albumin | CPT/HCPCS: A9270 ==

== ENCOUNTER 2023-03-09 03:49 | Day surgery (SDC) | payer OTHER ==
[2023-03-09 10:30] VITALS: BP 83/55
--- NOTE | 2023-03-09 10:54 | NUR ---
LVAD DRSG CHANGE OLD DRSG REMOVED. ONE INCH DARJ BROWN SPOT OF DRAINAGE NOTED ON OLD GAUZE. INSERTION SITE P/W/D. TWO SMALL PIN POINT RED SPOTS NOTED AGAIN UNDER THE DRIVE LINE INSERTION SITE. NO CHANGE FROM LAST WEEK. PATIENT FORGOT HIS HIBICLENS AND SALINE THAT COMES WITH HIS ADDITIONAL KIT AND REQUESTED WE JUST USE THE OTHER KIT HE BRINGS WITH THE CHLORHEXIDINE AND SEE HOW IT WORKS FOR HIM. STERILE TECHNIQUE MAINTAINED THROUGHOUT PROCEDURE. CLEANSED WITH CHLORHEXIDINE AND ALLOWED TO DRY. WASHED WITH STERILE SALINE WIPES AND ALLOWED TO DRY. SILVADENE DRSG APPLIED TO INSERTION SITE. TWO 4X4 STERILE GAUZE FOLDED AND PLACED ON TOP. THEN PLACED WINDOW TEGADERM OVER THE TOP. EXTRA STERILE TELFA DRSG APPLIED OVER THE TOP. ALL EDGES SECURED. ANCHOR DEVICE SECURES AND CLEAN AND DRY AND INTACT. PATIENT REQUESTED TO LEAVE IN PLACE AND CHANGE NEXT WEEK. ALL SUUPLIED SUPPLIED BY THE PATIENT
== END 2023-03-09 10:41 | disposition home or self-care (01) ==
LOC: ATC 03:49
DX: I50.9 Heart failure, unspecified (principal); E11.9 Type 2 diabetes mellitus without complications; Z79.4 Long term (current) use of insulin; Z89.611 Acquired absence of right leg above knee; Z89.422 Acquired absence of other left toe(s)
CPT/HCPCS: 99212

== ENCOUNTER 2023-03-09 04:08 | Day surgery (SDC) | payer OTHER | END 2023-03-09 22:58 | disposition home or self-care (01) | LOC: WOUND 04:08 | PROC: 0JBP0ZZ Excision of Left Lower Leg Subcutaneous Tissue and Fascia, Open Approach (ICD-10-PCS; principal; 2023-03-09) | DX: E11.51 Type 2 diabetes mellitus with diabetic peripheral angiopathy without gangrene (principal); I70.25 Atherosclerosis of native arteries of other extremities with ulceration; L97.522 Non-pressure chronic ulcer of other part of left foot with fat layer exposed; L98.492 Non-pressure chronic ulcer of skin of other sites with fat layer exposed; Z76.82 Awaiting organ transplant status | CPT/HCPCS: A9270 ==

== ENCOUNTER 2023-03-16 02:30 | Day surgery (SDC) | payer OTHER ==
[2023-03-16 10:58] VITALS: BP 114/88
--- NOTE | 2023-03-16 11:53 | NUR ---
LVAD DRSG CHANGE ALL SUPPLIES PROVIDED BY THE PATIENT. OLD DRSG REMOVED. SMALL REF SPOT BENEATH THE DRIVELIN WITHOUT CHANGE FROM LAST WEEK. SCANT TO ALMOST ZERO DRAINAGE, IMPROVED APPEARANCE FROM LAST WEEK. AREA CLEANSED WITH HIBICLENS AND SALINE MIXTURE AND ALLOWED TO DRY. WASHED AREA AFTER WITH STERILE SALINE WIPES. SILVADENE DRAIN SPONGE APPLIED WELL SMALL STERILE DRAIN SPONGE AROUND INSERTION SITE. TWO STERILE 4X4 GAUZE APPLIED OVER THE TOP FOLLOWED BY THE WINDOW TEGADERM. EXTRA TELFA DRSG APPLIED OVER THE DISTAL END FOR MORE SECURITY. ALL EDGES SEALED AND INTACT. ANCHOR DEVICE REPLACED. PATIENT WITHOUT COMPLAINTS. SEVERAL SETS OF STERILE GLOVES USED.
== END 2023-03-16 10:58 | disposition home or self-care (01) ==
LOC: ATC 02:30
DX: Z48.01 Encounter for change or removal of surgical wound dressing (principal); I50.9 Heart failure, unspecified; E11.22 Type 2 diabetes mellitus with diabetic chronic kidney disease; I48.91 Unspecified atrial fibrillation; E11.42 Type 2 diabetes mellitus with diabetic polyneuropathy; Z89.611 Acquired absence of right leg above knee; Z89.422 Acquired absence of other left toe(s)
CPT/HCPCS: 99212

== ENCOUNTER 2023-03-16 02:35 | Day surgery (SDC) | payer OTHER | END 2023-03-16 23:36 | disposition home or self-care (01) | LOC: WOUND 02:35 | DX: E11.622 Type 2 diabetes mellitus with other skin ulcer (principal); L97.822 Non-pressure chronic ulcer of other part of left lower leg with fat layer exposed; E11.621 Type 2 diabetes mellitus with foot ulcer; L97.522 Non-pressure chronic ulcer of other part of left foot with fat layer exposed; S81.002D Unspecified open wound, left knee, subsequent encounter; X58.XXXD Exposure to other specified factors, subsequent encounter; E11.51 Type 2 diabetes mellitus with diabetic peripheral angiopathy without gangrene; I70.202 Unspecified atherosclerosis of native arteries of extremities, left leg; Z89.611 Acquired absence of right leg above knee; I50.84 End stage heart failure; R77.0 Abnormality of albumin | CPT/HCPCS: A9270 ==

== ENCOUNTER 2023-03-23 01:01 | Day surgery (SDC) | payer OTHER ==
[2023-03-23 10:29] VITALS: BP 97/52
--- NOTE | 2023-03-23 11:53 | NUR ---
LVAD DRSG CHANGE APTIENT BROUGHT IN HIS OWN SUPPLIES. SEVERAL SETS OF STERILE GLOVES USED. OLD DRSG REMOVED. SMALL AMOUNT OF BROWN DRAINAGE AT DRIVE LINE INSERTION SITE NOTED. SKIN IS P/W/D. AREA CLEANSED WITH MIXTURE OF STERILE SALINE AND HIBICLENS. THEN WASHED THE AREA WITH STERILE SALINE WIPES FROM WITHIN THE KITS. ALLOWED TO AIR DRY. SILVADENE DRAIN GAUZE APPLIED AROUND DRIVE LINE FOLLOWED BY STERILE DRAIN GAUZE. TWO STERILE 4X4 GAUZE FOLDED AND PLACED ON TOP OF INSERTION AREA. WINDOW TEGADERM APPLIED OVER THE TOP. TWO ADDITIONAL STERILE TELFA DRESSINGS ADDED OVER THE TOP OF THE WINDOW FILM. ALL EDGES SEALED FIRMLY TO SKIN. ANCHOR DEVICE INTACT AND PATIENT REPORTS JUST CHANGES SO THAT REMAINED IN PLACE.
== END 2023-03-23 10:49 | disposition home or self-care (01) ==
LOC: ATC 01:01
DX: Z45.2 Encounter for adjustment and management of vascular access device (principal); I50.9 Heart failure, unspecified; E11.22 Type 2 diabetes mellitus with diabetic chronic kidney disease; N18.9 Chronic kidney disease, unspecified; E11.42 Type 2 diabetes mellitus with diabetic polyneuropathy
CPT/HCPCS: 99212

== ENCOUNTER 2023-03-30 03:56 | Day surgery (SDC) | payer OTHER | END 2023-03-30 23:19 | disposition home or self-care (01) | LOC: WOUND 03:56 | DX: E11.622 Type 2 diabetes mellitus with other skin ulcer (principal); L97.822 Non-pressure chronic ulcer of other part of left lower leg with fat layer exposed; E11.621 Type 2 diabetes mellitus with foot ulcer; L89.892 Pressure ulcer of other site, stage 2; S81.002D Unspecified open wound, left knee, subsequent encounter; W18.30XD Fall on same level, unspecified, subsequent encounter; E11.51 Type 2 diabetes mellitus with diabetic peripheral angiopathy without gangrene; I70.202 Unspecified atherosclerosis of native arteries of extremities, left leg; Z89.611 Acquired absence of right leg above knee; I50.84 End stage heart failure | CPT/HCPCS: A9270 ==

== ENCOUNTER 2023-03-30 04:06 | Day surgery (SDC) | payer OTHER ==
[2023-03-30 10:45] VITALS: BP 115/70
--- NOTE | 2023-03-30 10:59 | NUR ---
LVAD DRSG CHANGE ALL SUPPLIES SUPPLIED BY THE PATIENT. STERILE TECHNIQUE MAINTAINED T/O PROCCEDURE. OLD DRSG REMOVED. SMALL PINPOINT RED AREA UNDER THE DRIVELINE AT THE INSERTION SITE. SMALL AMOUNT OF BROWN DRAINAGE AROUND THE DRIVELINE INSERTION SITE. REMAINING AREAS ARE P/W/D. AREA CLEANSED WITH CHLOROPREP FOR 30 SECONDS AND ALLOWED TO DRY. SALINE SOAKED SILVADENE DRAIN SPONGE APPLIED AROUND DRIVELINE INSERTION SITE. 2 STERILE 4X4 GAUZES FOLDED AND PLACED ON TOP. WINDOW DRESSING APPLIED OVER FOLDED GAUZE. 2 EXTRA TELFA DRSG PLACED OVER THE LOWER EDGE OF THE WINDOW DRSG WHERE PATIENT REPORTS IT TENDS TO LIFT. ALL THE EDGES SEALED COMPLETELY.
== END 2023-03-30 10:57 | disposition home or self-care (01) ==
LOC: ATC 04:06
DX: Z48.00 Encounter for change or removal of nonsurgical wound dressing (principal); I50.9 Heart failure, unspecified; Z89.611 Acquired absence of right leg above knee
CPT/HCPCS: 99212

== ENCOUNTER 2023-04-06 00:39 | Day surgery (SDC) | payer OTHER | END 2023-04-06 22:43 | disposition home or self-care (01) | LOC: WOUND 00:39 | DX: E11.622 Type 2 diabetes mellitus with other skin ulcer (principal); I87.2 Venous insufficiency (chronic) (peripheral); L97.822 Non-pressure chronic ulcer of other part of left lower leg with fat layer exposed; S81.002D Unspecified open wound, left knee, subsequent encounter; E11.621 Type 2 diabetes mellitus with foot ulcer; I70.202 Unspecified atherosclerosis of native arteries of extremities, left leg; E11.51 Type 2 diabetes mellitus with diabetic peripheral angiopathy without gangrene; Z89.611 Acquired absence of right leg above knee; I50.84 End stage heart failure; R77.0 Abnormality of albumin | CPT/HCPCS: A9270 ==

== ENCOUNTER 2023-04-06 00:45 | Day surgery (SDC) | payer OTHER ==
--- NOTE | 2023-04-06 17:10 | NUR ---
LVAD DRESSING CHANGED PER PROTOCOL/PER KIT INSTRUCTIONS THAT PT BRINGS WITH HIM. OLD DRESSING TAKEN DOWN AND DRIVELINE CLEANSED WITH CHLORPREP, NOTED SLIGHT BROWN DISCHARGED. PLANNING ASSISTANT MAINTAINED T/O STERILE DRESSING CHANGE MASK WORN BY RN AND PT PT HAD NO OTHER S/S OF INFECTION
== END 2023-04-06 11:20 | disposition home or self-care (01) ==
LOC: ATC 00:45
DX: Z48.00 Encounter for change or removal of nonsurgical wound dressing (principal); I50.9 Heart failure, unspecified
CPT/HCPCS: 99212

== ENCOUNTER 2023-04-13 03:59 | Day surgery (SDC) | payer OTHER ==
--- NOTE | 2023-04-13 11:44 | NUR ---
LVAD DRSG CHANGE ALL SUPPLIES SUPPLIED BY THE PATIENT. STERILE TECHNIQUE MAINTAINED T/O PROCEDURE. OLD DRSG REMOVED. SMALL PINPOINT RED AREA UNDER THE DRIVELINE DISTAL TO THE INSERTION SITE. REAMINING AREAS ARE P/W/D. AREA CLEANED WITH 2 CHLOROPREPS AND REMOVED A DIME SIZE AMOUNT OF OLD BROWN DRAINAGE. ALLOWED TO AIR DRY. WASHED WITH STERILE SALINE WIPES. SOAKED SILVADENE DRAIN SPONGE WITH STERILE SALINE AND APPLIED AROUND THE DRIVELINE INSERTION SITE.2 STERILE 4X4 GAUZE FOLDED AND PLACED ON TOP. WINDOW TEGADERM PLACED ON TOP AND SECURED. 2 EXTRA TELFA DRSGS APPLIED TO SECURE THE EDGES. ALL EDGES SECURED. NEW ANCHOR DEVICE PLACED.
== END 2023-04-13 10:44 | disposition home or self-care (01) ==
LOC: ATC 03:59
DX: Z48.00 Encounter for change or removal of nonsurgical wound dressing (principal); I50.9 Heart failure, unspecified; Z89.611 Acquired absence of right leg above knee
CPT/HCPCS: 99212

== ENCOUNTER 2023-04-20 01:11 | Day surgery (SDC) | payer OTHER ==
--- NOTE | 2023-04-20 10:57 | NUR ---
LVAD DRSG CHANGE ALL SUPPLIES SUPPLIED BY PATIENT. STERILE TECHNIQUE MAINTAINED T/O. ANCHOR DEVICE CHANGED. OLD DRSG REMOVED. CLEANSED WITH 2 CHLOROPREPS. SMALL RED AREA UNDERNEATH THE DRIVELINE IS SLIGHTLY BIGGER, TUCKED EDGE OF GAUZE AND SALINE SOAKED SILVADENE UNDER THE DRIVELINE TO PROVIDE SOME PROTECTION TO THE AREA. 2 FOLDED 4X4 STERILE GAUZE PLACED OVER THE TOP. WINDOW TEGADERM PLACED ON TOP AND SECURED ON ALL EDGES. EXTRA TELFA PLACED TO PROVIDE EXTRA SECURITY AROUND THE EDGES OF THE DRSG.
== END 2023-04-20 10:48 | disposition home or self-care (01) ==
LOC: ATC 01:11
DX: Z48.00 Encounter for change or removal of nonsurgical wound dressing (principal); I50.9 Heart failure, unspecified; Z89.611 Acquired absence of right leg above knee
CPT/HCPCS: 99212

== ENCOUNTER 2023-04-27 02:24 | Day surgery (SDC) | payer OTHER | END 2023-04-27 22:50 | disposition home or self-care (01) | LOC: WOUND 02:24 | DX: E11.622 Type 2 diabetes mellitus with other skin ulcer (principal); L97.822 Non-pressure chronic ulcer of other part of left lower leg with fat layer exposed; S81.002D Unspecified open wound, left knee, subsequent encounter; X58.XXXD Exposure to other specified factors, subsequent encounter; E11.621 Type 2 diabetes mellitus with foot ulcer; E11.51 Type 2 diabetes mellitus with diabetic peripheral angiopathy without gangrene; I70.202 Unspecified atherosclerosis of native arteries of extremities, left leg; I50.84 End stage heart failure; Z89.611 Acquired absence of right leg above knee | CPT/HCPCS: A9270 ==

== ENCOUNTER 2023-05-04 02:09 | Day surgery (SDC) | payer OTHER | END 2023-05-04 22:38 | disposition home or self-care (01) | LOC: WOUND 02:09 | DX: E11.622 Type 2 diabetes mellitus with other skin ulcer (principal); L97.822 Non-pressure chronic ulcer of other part of left lower leg with fat layer exposed; E11.621 Type 2 diabetes mellitus with foot ulcer; E11.51 Type 2 diabetes mellitus with diabetic peripheral angiopathy without gangrene; I70.202 Unspecified atherosclerosis of native arteries of extremities, left leg; S81.002D Unspecified open wound, left knee, subsequent encounter; X58.XXXD Exposure to other specified factors, subsequent encounter; I50.84 End stage heart failure; Z89.611 Acquired absence of right leg above knee ==

== ENCOUNTER 2023-05-04 02:21 | Day surgery (SDC) | payer OTHER ==
--- NOTE | 2023-05-04 10:19 | NUR ---
LVAD DRESSING CHANGE TODAY. ALL SUPPLIES BROUGHT TO CLINIC BY PATIENT. STERILE TECHNIQUE MAINTAINED THROUGHOUT PROCEDURE. OLD DRESSING REMOVED. ERYTHEMIA WITH NO OPEN FISSURES OR SORES NOTED UNDER THE DRIVELINE APPROXIMATELY 1-2 CM FROM INSERTION SITE. QUARTER SIZE AMOUNT OF BROWN DRAINAGE NOTED AROUND DRIVELINE INSERTION SITE. AREA CLEANSED WITH CHLORAPREP FOR 30 SECONDS AND ALLOWED TO DRY FOR 30 SECONDS. PT REQUESTED NO SALINE SOAKED SILVADENE DRAIN SPONGE TODAY. INSTEAD WE PLACED STERIL 4X4 GAUZE AT THE INSERTION SITE AND UNDER THE DRIVELINE TO ATTEMPT TO IMPROVE THE ERYTHEMA THAT WAS NOTED. WINDOW DRESSING APPLIED OVER THE GAUZE. 2 TELFA DRESSINGS APPLIED OVER THE TOP TO SEAL THE WINDOW DRESSING IN PLACE. NEW ANCHOR APPLIED. PT TOLERATED DRESSING CHANGE WELL
== END 2023-05-04 10:05 | disposition home or self-care (01) ==
LOC: ATC 02:21
DX: Z48.01 Encounter for change or removal of surgical wound dressing (principal); I50.9 Heart failure, unspecified
CPT/HCPCS: 99212

== ENCOUNTER 2023-05-11 09:31 | Emergency (ER) | payer OTHER ==
[~2023-05-11] VITALS: Ht 185.4 cm; Wt 80.7 kg
[2023-05-11 10:01] LABS: BASOPHILS ABSOLUTE AUTO 0.04 K/mm3 (0.00-0.23); BASOPHILS PERCENT AUTO 0 % (0-2); EOSINOPHILS PERCENT AUTO 0 % (0-6); Hematocrit 31.1 % (37.0-53.0); Hemoglobin 10.1 g/dL (13.5-17.5); IMMATURE GRAN ABSOLUTE AUTO 0.26 K/mm3 (0.00-0.10); IMMATURE GRAN PERCENT AUTO 1 % (0-1); LYMPHOCYTES ABSOLUTE AUTO 0.53 K/mm3 (0.84-5.20); LYMPHOCYTES PERCENT AUTO 2 % (21-46); MONOCYTES ABSOLUTE AUTO 0.71 K/mm3 (0.16-1.47); MONOCYTES PERCENT AUTO 3 % (4-13); Mean Corpuscular HGB 27.4 pg (26.0-34.0); Mean Corpuscular HGB Conc 32.5 g/dL (31.5-36.5); Mean Corpuscular Volume 84 fL (80-100); Mean Platelet Volume 10.3 fL (9.1-12.4); NEUTROPHILS ABSOLUTE AUTO 20.41 K/mm3 (1.96-9.15); NEUTROPHILS PERCENT AUTO 93 % (41-73); Platelet Count 199 K/mm3 (150-400); RDW Coefficient Variation 15.9 % (11.7-14.2); RDW Standard Deviation 48.5 fL (35.1-46.3); Red Blood Cell Count 3.69 M/mm3 (4.30-5.90); White Blood Cell Count 21.95 K/mm3 (4.00-11.30)
[2023-05-11 10:19] LABS: BAND PERCENT MAN 8 % (0-8); BASOPHILS PERCENT MAN 0 % (0-2); EOSINOPHILS ABSOLUTE MAN 0.21 K/mm3 (0.00-0.68); EOSINOPHILS PERCENT MAN 1 % (0-6); MONOCYTES ABSOLUTE MAN 0.21 K/mm3 (0.16-1.47); MONOCYTES PERCENT MAN 1 % (4-13); NEUTROPHILS ABSOLUTE MAN 21.51 K/mm3 (1.96-9.15); SEG NEUTROPHILS PERCENT MAN 90 % (41-73); TOTAL CELLS COUNTED 100
[2023-05-11 10:27] LABS: Albumin, Blood 2.4 g/dL (3.4-5.0); Albumin/Globulin Ratio 0.7 (0.8-1.8); Bilirubin, Total 2.5 mg/dL (0.1-1.0); Bun/Creatinine Ratio 11.8 (12.0-20.0); Calcium, Blood 8.1 mg/dL (8.5-10.1); Creatinine, Blood 0.85 mg/dL (0.60-1.20); Globulin, Blood 3.6 g/dL (2.2-4.0); Magnesium, Blood 1.3 mg/dL (1.6-2.4); Potassium, Blood 3.1 mmol/L (3.5-5.5)
[2023-05-11] MEDS ORDERED: GABA300 PO (11:22)
[2023-05-11] MEDS ORDERED: VITAMIN D33000 UNIT PO (11:23)
[2023-05-11] MEDS ORDERED: Lantus100 UNIT/1 (11:24)
[2023-05-11 13:37] LABS: Source, Urine Straight Cath
[2023-05-11 13:44] LABS: Appearance, Urine Clear (Clear); Bilirubin, Urine Neg (Neg); Blood, Urine Neg (Neg); Color, Urine Yellow (P-Yellow); Glucose Qualitative, Urine Neg (Neg); Ketones, Urine Neg (Neg); Leukocyte Esterase, Urine Neg (Neg); Nitrite, Urine Neg (Neg); Protein, Urine 1+ (Neg); Specific Gravity, Urine 1.015 (1.003-1.022); Urobilinogen, Urine NORM (Normal)
[2023-05-11 15:24] LABS: International Normalized Ratio 3.17; Prothrombin Time Results 31.2 Sec (9.7-11.5)
[2023-05-11 18:25] VITALS: BP 98/58
== END 2023-05-11 18:44 | disposition short-term general hospital (02) ==
LOC: ER 09:31
PROVIDERS: Emergency Medicine
DX: A41.9 Sepsis, unspecified organism (principal); R65.20 Severe sepsis without septic shock; R29.898 Other symptoms and signs involving the musculoskeletal system; Z88.8 Allergy status to other drugs, medicaments and biological substances; Z79.899 Other long term (current) drug therapy; Z79.4 Long term (current) use of insulin; Z79.01 Long term (current) use of anticoagulants; Z87.891 Personal history of nicotine dependence; I13.0 Hypertensive heart and chronic kidney disease with heart failure and stage 1 through stage 4 chronic kidney disease, or unspecified chronic kidney disease; N18.30 Chronic kidney disease, stage 3 unspecified; I48.0 Paroxysmal atrial fibrillation; I50.9 Heart failure, unspecified; J44.9 Chronic obstructive pulmonary disease, unspecified; E11.22 Type 2 diabetes mellitus with diabetic chronic kidney disease; D63.1 Anemia in chronic kidney disease; M19.90 Unspecified osteoarthritis, unspecified site; I25.2 Old myocardial infarction
CPT/HCPCS: 36415; 51701; 71045; 80053; 82947; 83605; 83690; 83735; 85025; 85610; 87040; 87077; 87186; 93005; 93010; 96365-59; 96366-59; 96367-59; 99285-25; J2543; J3370; J7030; J7050

== ENCOUNTER 2023-05-25 01:35 | Day surgery (SDC) | payer OTHER ==
[~2023-05-25 01:35] MED LIST changes: +Lantus100 UNIT/1; +VITAMIN D33000 UNIT PO
--- NOTE | 2023-05-25 10:54 | NUR ---
LVAD DSG CHANGE ALL SUPPLIES PROVIDED BY PATIENT. OLD DRESSING REMOVED. SMALL AMOUNT DRIED LIGHT BROWN DRAINAGE FROM DRIVE LINE INSERTION SITE. CLEANED AREA WITH CHLORPREP AND ALLOWED TO DRY. SILVADENE DRESSING APPLIED TO INSERTION SITE. STERILE 4X4S AND TEGADERM DRESSING TO SITE. 4X4 GAUZE FOLDED AND PLACED UNDER THE DRIVELINE PER PT REQUEST FOR COMFORT. ADDITIONAL TWO TELFA DRESSINGS APPLIED OVER THE TOP OF THE TEGADERM DRESSING. DRIVE LINE ANCHOR CHANGED. STERILE TECHNIQUE MAINTAINED DURING THE DRESSING CHANGE. PT TOLERATED DSG CHANGE WITHOUT DIFFICULTY.
== END 2023-05-25 10:44 | disposition home or self-care (01) ==
LOC: ATC 01:35
DX: Z48.01 Encounter for change or removal of surgical wound dressing (principal); Z95.811 Presence of heart assist device; Z88.1 Allergy status to other antibiotic agents; Z89.611 Acquired absence of right leg above knee; E11.9 Type 2 diabetes mellitus without complications
CPT/HCPCS: 99211

== ENCOUNTER 2023-05-25 01:46 | Day surgery (SDC) | payer OTHER | END 2023-05-25 23:32 | disposition home or self-care (01) | LOC: WOUND 01:46 | DX: E11.622 Type 2 diabetes mellitus with other skin ulcer (principal); L97.822 Non-pressure chronic ulcer of other part of left lower leg with fat layer exposed; S81.002D Unspecified open wound, left knee, subsequent encounter; X58.XXXD Exposure to other specified factors, subsequent encounter; E11.621 Type 2 diabetes mellitus with foot ulcer; E11.51 Type 2 diabetes mellitus with diabetic peripheral angiopathy without gangrene; I70.202 Unspecified atherosclerosis of native arteries of extremities, left leg; Z89.611 Acquired absence of right leg above knee; I50.84 End stage heart failure; R77.0 Abnormality of albumin | CPT/HCPCS: A9270 ==

== ENCOUNTER 2023-06-01 03:16 | Day surgery (SDC) | payer OTHER ==
--- NOTE | 2023-06-01 16:58 | NUR ---
LVAD DRESSING CHANGE TODAY. SUPPLIES SUPPLIED BY THE PATIENT. STERILE TECHNIQUE MAINTAINED THROUGHTOU PROCEDURE. OLD DRESSING REMOVED. SKIN DARK PINK UNDER DRIVELINE. DIME SIZE AMOUNT OF BROWN DRAINAGE NOTED ON OLD DRESSING. AREA CLEANSED WITH CHLORAPREP FOR 30 SECONDS AND AREA AIR DRIED FOR 30 SECONDS. SILVADENE DRAIN SPONGE APPLIED AROUND DRIVELINE INSERTION SITE. PT REQUESTED THAT SILVADENE SPONGE NOT BE SOAKED IN SALINE. 2 4X4'S APPLIED ON TOP OF SILVADENE SPONGE FOLLOWED BY WINDOW DRESSING. ONE TELFA DRESSING PLACED OVER THE TOP AND MEDIPORE TAPE PLACED AT EACH END OF THE TELFA DRESSING. NEW SECUREMENT DEVICE APPLIED.
== END 2023-06-01 16:19 | disposition home or self-care (01) ==
LOC: ATC 03:16
DX: Z48.01 Encounter for change or removal of surgical wound dressing (principal); Z95.811 Presence of heart assist device
CPT/HCPCS: 99211

== ENCOUNTER 2023-06-01 03:33 | Day surgery (SDC) | payer OTHER | END 2023-06-01 22:41 | disposition home or self-care (01) | LOC: WOUND 03:33 | DX: E11.621 Type 2 diabetes mellitus with foot ulcer (principal); E11.622 Type 2 diabetes mellitus with other skin ulcer; S81.002D Unspecified open wound, left knee, subsequent encounter; I70.202 Unspecified atherosclerosis of native arteries of extremities, left leg; E11.51 Type 2 diabetes mellitus with diabetic peripheral angiopathy without gangrene; Z89.611 Acquired absence of right leg above knee; I50.84 End stage heart failure; R77.0 Abnormality of albumin ==

== ENCOUNTER 2023-06-08 03:26 | Day surgery (SDC) | payer OTHER | END 2023-06-08 22:35 | disposition home or self-care (01) | LOC: WOUND 03:26 | DX: E11.621 Type 2 diabetes mellitus with foot ulcer (principal); E11.622 Type 2 diabetes mellitus with other skin ulcer; L97.929 Non-pressure chronic ulcer of unspecified part of left lower leg with unspecified severity; I70.202 Unspecified atherosclerosis of native arteries of extremities, left leg; S81.002D Unspecified open wound, left knee, subsequent encounter; I50.84 End stage heart failure; R77.0 Abnormality of albumin; Z89.611 Acquired absence of right leg above knee | CPT/HCPCS: G0463 ==

== ENCOUNTER 2023-06-15 04:05 | Day surgery (SDC) | payer OTHER ==
--- NOTE | 2023-06-08 14:08 | NUR ---
PT CANCELLED HIS APPOINTMENT FOR TODAY. IRINA STATES HE WILL RESCHEDULE HIS APPOINTMENT.
--- NOTE | 2023-06-15 16:35 | NUR ---
LVAD DRESSING CHANGE TODAY. ALL SUPPLIES SUPPLIED BY THE PATIENT. STERILE TECHNIQUE MAINTAINED THROUGHOUT PROCEDURE. OLD DRESSING REMOVED. SMALL PINPOINT RED AREA UNDER THE DRIVELINE INSERTION SITE. QUARTER SIZED AMOUNT OF BROWN DRAINAGE NOTED ON DRESSING REMOVED. AREA CLEANSED WITH CHLORAPREP FOR 30 SECONDS AND AIR DRIED FOR 30 SECONDS. DRY SILVADENE DRAIN SPONGE APPLIED AROUND INSERTION SITE. 1 STERILE 4X4 GAUZE APPLIED ON TOP WITH WINDOW DRESSING APPLIED OVER GAUZE. 2 EXTRA TELFA DRESSINGS PLACED OVER THE WINDOW DRESSING. NEW ANCHOR DEVICE APPLIED
== END 2023-06-15 16:32 | disposition home or self-care (01) ==
LOC: ATC 04:05
DX: Z48.01 Encounter for change or removal of surgical wound dressing (principal); Z95.811 Presence of heart assist device; Z88.1 Allergy status to other antibiotic agents
CPT/HCPCS: 99212

== ENCOUNTER 2023-06-15 05:30 | Day surgery (SDC) | payer OTHER | END 2023-06-15 22:44 | disposition home or self-care (01) | LOC: WOUND 05:30 | DX: E11.622 Type 2 diabetes mellitus with other skin ulcer (principal); L97.822 Non-pressure chronic ulcer of other part of left lower leg with fat layer exposed; E11.621 Type 2 diabetes mellitus with foot ulcer; S81.002D Unspecified open wound, left knee, subsequent encounter; E11.51 Type 2 diabetes mellitus with diabetic peripheral angiopathy without gangrene; I70.202 Unspecified atherosclerosis of native arteries of extremities, left leg; Z89.611 Acquired absence of right leg above knee; I50.84 End stage heart failure; R77.0 Abnormality of albumin; X58.XXXD Exposure to other specified factors, subsequent encounter | CPT/HCPCS: A9270; G0463 ==

== ENCOUNTER 2023-06-22 04:57 | Day surgery (SDC) | payer OTHER ==
--- NOTE | 2023-06-22 16:19 | NUR ---
LVAD DRSG CHANGE ALL SUPPLIES SUPPLIED BY THE PATIENT. STERILE TECHNIQUE MAINTAINED T/O PROCEDURE. OLD DRSG REMOVED. SMALL AMOUNT OF BROWN DRAINAGE AROUND THE DRIVELINE. AREA IS P/W/D. AREA CLEANSED WITH CHLOROPREP FOR 30 SECONDS AND ALLOWED TO DRY. STERILE SALINE SOAKED SILVADENE DRAIN SPONGE APPLIED AROUND THE DRIVELINE INSERTION SITE. 2 STERILE 4X4 GAUZES FOLDED OVER THE TOP. STERILE WINDOW DRSG APPLIED OVER FOLDED GAUZE. TWO EXTRA TELFA DRESSINGS PLACED OVER THE TOP. ALL EDGES SEALED COMPLETELY.
== END 2023-06-22 15:56 | disposition home or self-care (01) ==
LOC: ATC 04:57
DX: Z48.01 Encounter for change or removal of surgical wound dressing (principal); Z95.811 Presence of heart assist device; I50.9 Heart failure, unspecified; Z89.611 Acquired absence of right leg above knee
CPT/HCPCS: 99212

== ENCOUNTER 2023-06-22 05:23 | Day surgery (SDC) | payer OTHER | END 2023-06-22 22:48 | disposition home or self-care (01) | LOC: WOUND 05:23 | DX: E11.622 Type 2 diabetes mellitus with other skin ulcer (principal); L97.822 Non-pressure chronic ulcer of other part of left lower leg with fat layer exposed; E11.621 Type 2 diabetes mellitus with foot ulcer; E11.51 Type 2 diabetes mellitus with diabetic peripheral angiopathy without gangrene; I70.202 Unspecified atherosclerosis of native arteries of extremities, left leg; S81.002D Unspecified open wound, left knee, subsequent encounter; X58.XXXD Exposure to other specified factors, subsequent encounter; I50.84 End stage heart failure; R77.0 Abnormality of albumin | CPT/HCPCS: G0463 ==

== ENCOUNTER 2023-06-29 02:06 | Day surgery (SDC) | payer OTHER ==
--- NOTE | 2023-06-29 17:04 | NUR ---
LVAD DRESSING CHANGE TODAY. PT BROUGHT ALL SUPPLIES FROM HOME. OLD DRESSING REMOVED. PENCIL ERASER SIZED ERYTHEMA NOTED MEDIAL TO THE DRIVELINE. STERILE TECHNIQUED MAINTAINED AND AREA CLEANSED FOR 30 SECONDS AND AIR DRIED FOR 30 SECONDS. SILVADENE DRESSING APPLIED AROUND DRIVELINE. 2 STERILE 4X4'S APPLIED OVER SITE FOLLOWED BY WINDOW DRESSING. 2 EXTRA TELFA DRESSINGS PLACED OVER THE TOP. LET IT BE NOTED THAT A DIME SIZED AMOUNT OF DRAINAGE WAS FOUND WHEN DRESSING WAS REMOVED.
== END 2023-06-29 16:10 | disposition home or self-care (01) ==
LOC: ATC 02:06
DX: Z48.01 Encounter for change or removal of surgical wound dressing (principal); Z95.811 Presence of heart assist device
CPT/HCPCS: 99212

== ENCOUNTER 2023-07-14 03:53 | Day surgery (SDC) | payer OTHER | END 2023-07-14 22:49 | disposition home or self-care (01) | LOC: WOUND 03:53 | DX: E11.622 Type 2 diabetes mellitus with other skin ulcer (principal); S81.002D Unspecified open wound, left knee, subsequent encounter; E11.51 Type 2 diabetes mellitus with diabetic peripheral angiopathy without gangrene; I70.202 Unspecified atherosclerosis of native arteries of extremities, left leg; Z89.611 Acquired absence of right leg above knee; I50.84 End stage heart failure; R77.0 Abnormality of albumin | CPT/HCPCS: A9270; G0463 ==

== ENCOUNTER 2023-07-14 03:57 | Day surgery (SDC) | payer OTHER ==
--- NOTE | 2023-07-14 15:03 | NUR ---
LVAD DRSG CHANGE ANCHOR CHANGED. OLD DRSG REMOVED. AREA CLEANSED THOROUGHLY WITH CHLOROPREP SWABS AND ALLOWED TO DRY APPROXIMATELY 1 MINUTE. REDDENED AREA AROUND THE DRIVELINE INSERTION SITE APPROXIMATELY 1CM OUTSIDE THE INSERTION SITE. WIPED WITH STERILE SALINE WIPE. SALINE SOAKED SILVADENE DRAIN GAUZE WRAPPED BENEATH THE DRIVELINE AND AROUND THE DRIVELINE AROUND THE INSERTION POINT. 2 4X4 STERILE GAUZE FOLDED AND PLACED OVER THE TOP. STERILE WINDOW DRESSING PLACED OVER THE TOP AND SECURED ALL EDGES. 2 TELFA DRSGS APPLIED FOR EXTRA SECURITY.N ALL SUPPLIES SUPPLIED BY THE PATIENT.
== END 2023-07-14 14:37 | disposition home or self-care (01) ==
LOC: ATC 03:57
DX: Z48.01 Encounter for change or removal of surgical wound dressing (principal); Z95.811 Presence of heart assist device; Z88.8 Allergy status to other drugs, medicaments and biological substances
CPT/HCPCS: 99212

== ENCOUNTER 2023-07-20 01:00 | Day surgery (SDC) | payer OTHER ==
--- NOTE | 2023-07-20 15:59 | NUR ---
LVAD DRSG CHANGE PATIENTS ANCHOR DEVICE WAS WRINKLED AND UNATTACHED TO THE PATIENT. THE DRIVELINE APPEARS TO STILL BE IN SAME LOCATION LAST WEEK AND NOT PULLED OUT. REPLACED ANCHOR DEVICE. OLD DRSG REMOVED. CLEANSED THE AREA THOROUGHLY WITH CHLORAPREP AND ALLOWED TO DRY. APPLIED STERILE SALINE SOAKED SILVADENE DRAIN GAUZE AROUND THE DRIVELINE SITE. TWO STERILE 4X4S FOLDED AND PLACED OVER THE TOP. WINDOW DRESSING PLACED OVER THAT AND SECURED ALL THE EDGES. APPLIED 2 EXTRA TELFA DRESSINGS FOR EXTRA SECURITY. ALL DRSG SUPPLIES SUPPLIED BY THE PATIENT.
== END 2023-07-20 14:48 | disposition home or self-care (01) ==
LOC: ATC 01:00
DX: Z48.01 Encounter for change or removal of surgical wound dressing (principal); Z95.811 Presence of heart assist device
CPT/HCPCS: 99212

== ENCOUNTER 2023-07-20 01:27 | Day surgery (SDC) | payer OTHER | END 2023-07-20 22:53 | disposition home or self-care (01) | LOC: WOUND 01:27 | DX: E11.622 Type 2 diabetes mellitus with other skin ulcer (principal); L97.822 Non-pressure chronic ulcer of other part of left lower leg with fat layer exposed; S81.002D Unspecified open wound, left knee, subsequent encounter; X58.XXXD Exposure to other specified factors, subsequent encounter; E11.621 Type 2 diabetes mellitus with foot ulcer; E11.51 Type 2 diabetes mellitus with diabetic peripheral angiopathy without gangrene; I70.202 Unspecified atherosclerosis of native arteries of extremities, left leg; Z89.611 Acquired absence of right leg above knee; I50.84 End stage heart failure; R77.0 Abnormality of albumin | CPT/HCPCS: G0463 ==

== ENCOUNTER 2023-07-27 02:31 | Day surgery (SDC) | payer OTHER ==
--- NOTE | 2023-07-27 14:08 | NUR ---
LVAD DRESSING CHANGE: ALL SUPPLIES PROVIDED BY PT. REMOVED OLD DRESSING. SMALL AMOUNT OF LIGHT BROWN DRAINAGE NOTED UNDER OLD DRESSING NEAR DRIVELINE. SMALL RED AREA NOTED UNDER DRIVELINE INSERTION SITE. PT TOOK PICTURE ON HIS PHONE TO SHOW TO THE MD. INSERTION SITE AND SURROUNDING AREA CLEANED WITH CHLORPREP AND ALLOWED TO DRY. SKIN PREP APPLIED. SILVADENE DRAIN SPONGE PLACED AROUND DRIVELINE. WINDOW DRESSING APPLIED OVER THE TOP OF THE SILVADENE DRESSING. 2 ADDITIONAL TELFA DRESSINGS APPLIED OVER THE TOP OF THE WINDOW DRESSING. ALL EDGES SEALED COMPLETELY. DRIVELINE ANCHOR CHANGED. SKIN UNDER THE ANCHOR C,D & I. STERILE TECHNIQUE MAINTAINED THROUGHOUT THE PROCEDURE.
== END 2023-07-27 14:08 | disposition home or self-care (01) ==
LOC: ATC 02:31
DX: Z48.01 Encounter for change or removal of surgical wound dressing (principal); Z95.811 Presence of heart assist device; E11.9 Type 2 diabetes mellitus without complications; Z89.611 Acquired absence of right leg above knee
CPT/HCPCS: 99212

== ENCOUNTER 2023-07-27 02:59 | Day surgery (SDC) | payer OTHER | END 2023-07-27 22:57 | disposition home or self-care (01) | LOC: WOUND 02:59 | DX: S81.002D Unspecified open wound, left knee, subsequent encounter (principal); X58.XXXD Exposure to other specified factors, subsequent encounter; E11.621 Type 2 diabetes mellitus with foot ulcer; E11.622 Type 2 diabetes mellitus with other skin ulcer; E11.51 Type 2 diabetes mellitus with diabetic peripheral angiopathy without gangrene; I70.202 Unspecified atherosclerosis of native arteries of extremities, left leg; I50.84 End stage heart failure; R77.0 Abnormality of albumin; Z89.611 Acquired absence of right leg above knee | CPT/HCPCS: G0463 ==

== ENCOUNTER 2023-08-03 04:09 | Day surgery (SDC) | payer OTHER ==
--- NOTE | 2023-08-03 14:02 | NUR ---
LVAD DRESSING CHANGE PT PROVIDES ALL SUPPLIES FOR THIS STERILE PROCEDURE. OLD DRESSING REMOVED. SMALL AMOUNT OF LIGHT PERALES DRAINAGE NOTED ON OLD DRESSING. SLIGHT RED AREA NOTED UNDER DRIVELINE WHICH IS LESS RED THAN LAST WEEK. LVAD INSERTION SITE AND SURROUNDING AREA AND DRIVELINE CLEANED WITH CHLORPREP AND ALLOWED TO DRY. SKIN PREP APPLIED TO SKIN WHICH WILL BE UNDER THE DRESSING. STERILE SALINE MOISTENED SILVADENE DRAINAGE DRESSING APPLIED OVER THE DRIVELINE INSERTION SITE. TEGADERM APPLIED OVER THE DRIVELINE. TWO ADDITIONAL ISLAND DRESSINGS APPLIED OVER THE TOP OF THE TEGADERM PER PT PREFERENCE. LVAD ATTACHMENT DEVICE IS SECURE AND WAS NOT REPLACED THIS WEEK. ALL DRESSINGS EDGES SEALED. STERILE TECHNIQUE MAINTAINED DURING THE DRESSING CHANGE.
== END 2023-08-03 14:02 | disposition home or self-care (01) ==
LOC: ATC 04:09
DX: Z48.01 Encounter for change or removal of surgical wound dressing (principal); Z95.811 Presence of heart assist device; Z88.1 Allergy status to other antibiotic agents; I50.9 Heart failure, unspecified
CPT/HCPCS: 99211

== ENCOUNTER 2023-08-03 04:53 | Day surgery (SDC) | payer OTHER | END 2023-08-04 23:56 | disposition home or self-care (01) | LOC: WOUND 04:53 | DX: E11.622 Type 2 diabetes mellitus with other skin ulcer (principal); L97.822 Non-pressure chronic ulcer of other part of left lower leg with fat layer exposed; S81.002D Unspecified open wound, left knee, subsequent encounter; W18.39XD Other fall on same level, subsequent encounter; E11.621 Type 2 diabetes mellitus with foot ulcer; E11.51 Type 2 diabetes mellitus with diabetic peripheral angiopathy without gangrene; I70.202 Unspecified atherosclerosis of native arteries of extremities, left leg; Z89.611 Acquired absence of right leg above knee; I50.84 End stage heart failure; R77.0 Abnormality of albumin | CPT/HCPCS: G0463 ==

== ENCOUNTER 2023-08-09 04:43 | Day surgery (SDC) | payer OTHER ==
[2023-08-09 14:34] VITALS: BP 111/87
--- NOTE | 2023-08-09 15:19 | NUR ---
LVAD DRESSING CHANGE TODAY. OLD DRESSING REMOVED. PHOTO TAKEN ON PT'S TABLET TO SEND TO HIS DR AT [facility]. SUPPLIES PROVIDED BY THE PATIENT. SKIN CLEANSED WITH CHLORAPREP FOR 30 SECONDS AND ALLOWED TO AIR DRY FOR 30 SECONDS. ERYTHEMATOUS INGROWN HAIR NOTED SUPERIOR TO DRIVELINE INSERTION SITE ON PATIENTS RIBCAGE AND PENCIL ERASER SIZED ERYTHEMA NOTED MEDIAL SIDE OF THE DRIVELINE INSERTION SITE. SMALL PENCIL ERASER SIZED AMOUNT OF DRAINAGE NOTED ON OLD DRESSING UPON REMOVAL. SILVADENE DRAIN SPONGE PLACED AROUND DRIVELINE INSERTION SITE. WINDOW DRESSING APPLIED FOLLOWED BY 2 TELFA DRESSINGS OVER THE WINDOW DRESSING. NEW SECUREMENT DEVICE APPLIED. STERILE TECHNIQUE MAINTAINED THROUGHOUT PROCEDURE AND BOTH RN AND PT WORE A MASK.
== END 2023-08-09 15:04 | disposition home or self-care (01) ==
LOC: ATC 04:43
DX: Z48.01 Encounter for change or removal of surgical wound dressing (principal); Z95.811 Presence of heart assist device; Z89.611 Acquired absence of right leg above knee; I50.9 Heart failure, unspecified
CPT/HCPCS: 99212

== ENCOUNTER 2023-08-09 05:15 | Day surgery (SDC) | payer OTHER | END 2023-08-09 22:49 | disposition home or self-care (01) | LOC: WOUND 05:15 | DX: E11.621 Type 2 diabetes mellitus with foot ulcer (principal); E11.622 Type 2 diabetes mellitus with other skin ulcer; S81.002D Unspecified open wound, left knee, subsequent encounter; I70.202 Unspecified atherosclerosis of native arteries of extremities, left leg; Z89.611 Acquired absence of right leg above knee; I50.84 End stage heart failure; R77.0 Abnormality of albumin | CPT/HCPCS: G0463 ==

== ENCOUNTER 2023-08-17 05:02 | Day surgery (SDC) | payer OTHER | END 2023-08-17 22:50 | disposition home or self-care (01) | LOC: WOUND 05:02 | DX: E11.622 Type 2 diabetes mellitus with other skin ulcer (principal); L97.822 Non-pressure chronic ulcer of other part of left lower leg with fat layer exposed; S81.002D Unspecified open wound, left knee, subsequent encounter; X58.XXXD Exposure to other specified factors, subsequent encounter; E11.621 Type 2 diabetes mellitus with foot ulcer; E11.51 Type 2 diabetes mellitus with diabetic peripheral angiopathy without gangrene; I70.202 Unspecified atherosclerosis of native arteries of extremities, left leg; Z89.611 Acquired absence of right leg above knee; I50.84 End stage heart failure; R77.0 Abnormality of albumin | CPT/HCPCS: G0463 ==

== ENCOUNTER 2023-08-17 05:11 | Day surgery (SDC) | payer OTHER ==
--- NOTE | 2023-08-17 14:23 | NUR ---
LVAD DRESSING CHANGE ALL SUPPLIES FOR DRESSING CHANGE PROVIDED BY PT. STERILE TECHNIQUE MAINTAINED THROUGHOUT PROCEDURE. OLD DRESSING REMOVED WITH SMALL AMOUNT OF LIGHT BROWN DRAINAGE. SLIGHTLY RED AROUND INSERTION SITE OF THE DRIVELINE. AREA CLEANED WITH CHLORPREP AND ALLOWED TO DRY. WIPED WITH STERILE SALINE WIPE. SKIN PREP APPLIED. SALINE SOAKED SILAVDENE DRESSING APPLIED AROUND INSERTION SITE. DRIVELINE LINE COVERED WITH STERILE 4X4 AND TEGADERM DRESSING. TWO TELFA DRESSINGS APPLIED OVER THE TOP OF THE TEGADERM DRESSING PER PT REQUEST. DRIVELINE ANCHOR CLEAN, DRY AND INTACT AND NOT REPLACED TODAY. ALL EDGES OF THE DRESSING SEALED COMPLETELY.
== END 2023-08-17 14:30 | disposition home or self-care (01) ==
LOC: ATC 05:11
DX: Z48.01 Encounter for change or removal of surgical wound dressing (principal); I50.9 Heart failure, unspecified
CPT/HCPCS: 99211

== ENCOUNTER 2023-08-24 01:05 | Day surgery (SDC) | payer OTHER ==
--- NOTE | 2023-08-24 14:23 | NUR ---
LVAD DRSG CHANGE ALL SUPPLIES SUPPLIED BY THE PATIENT. ANCHOR DEVICE REPLACED. OLD DRSG REMOVED AND CLEANED THOROUGHLY WITH CHLOROPREP. WIPED AREA WITH STERILE SALINE WIPE. STERILE SALINE SOAKED SILVADENE DRAIN SPONGE APPLIED AROUND THE DRIVELINE BETWEEN THE DRIVELINE AND THE REDDENED 3/4 IN AREA BENEATH IT. 2 STERILE 4X4S APPLIED OVER THE TOP OF THE DRIVELINE. WINDOW TEGADERM PLACED OVER THE TOP WITH TWO ADDITIONAL TELFA DRSGS TO SURE IT. ALL EDGES SECURED.
== END 2023-08-24 14:10 | disposition home or self-care (01) ==
LOC: ATC 01:05
DX: Z48.01 Encounter for change or removal of surgical wound dressing (principal); Z95.811 Presence of heart assist device
CPT/HCPCS: 99212

== ENCOUNTER 2023-08-24 02:21 | Day surgery (SDC) | payer OTHER | END 2023-08-24 22:51 | disposition home or self-care (01) | LOC: WOUND 02:21 | DX: E11.622 Type 2 diabetes mellitus with other skin ulcer (principal); L97.822 Non-pressure chronic ulcer of other part of left lower leg with fat layer exposed; E11.621 Type 2 diabetes mellitus with foot ulcer; S81.002D Unspecified open wound, left knee, subsequent encounter; X58.XXXD Exposure to other specified factors, subsequent encounter; I70.202 Unspecified atherosclerosis of native arteries of extremities, left leg; Z89.611 Acquired absence of right leg above knee; I50.84 End stage heart failure; R77.0 Abnormality of albumin | CPT/HCPCS: G0463 ==

== ENCOUNTER 2023-08-31 00:04 | Day surgery (SDC) | payer OTHER ==
--- NOTE | 2023-08-31 14:39 | NUR ---
LVAD DRSG CHANGE ALL SUPPLIES PROVIDED BY THE PATIENT. SECUREMENT DEVICE REPLACED. OLD DRSG REMOVED. TWO SMALL REDDENED AREAS LOCATED AROUND THE DRIVELINE. SMALL AMOUNT OF BROWN CRUSTED DRAINAGE AROUND THE INSERTION SITE. CLEANSED THOROUGHLY WITH CHLOROPREP. STERILE SALINE SOAKED SILVADENE DRAIN SPONGE PLACED UNDER THE DRIVELINE. 2 STERILE 4X4 PLACED OVER THE TOP AND THEN COVERED WITH WINDOW TEGADERM. TWO EXTRA TELFA DRSGS APPLIED TO PROVIDE EXTRA SECUREMENT.
== END 2023-08-31 14:34 | disposition home or self-care (01) ==
LOC: ATC 00:04
DX: Z48.01 Encounter for change or removal of surgical wound dressing (principal); Z95.811 Presence of heart assist device
CPT/HCPCS: 99212

== ENCOUNTER 2023-08-31 02:14 | Day surgery (SDC) | payer OTHER | END 2023-08-31 22:55 | disposition home or self-care (01) | LOC: WOUND 02:14 | DX: E11.51 Type 2 diabetes mellitus with diabetic peripheral angiopathy without gangrene (principal); L98.492 Non-pressure chronic ulcer of skin of other sites with fat layer exposed; I70.25 Atherosclerosis of native arteries of other extremities with ulceration; I50.84 End stage heart failure; R77.0 Abnormality of albumin; Z89.611 Acquired absence of right leg above knee; Z76.82 Awaiting organ transplant status | CPT/HCPCS: G0463 ==

== ENCOUNTER 2023-09-07 04:26 | Day surgery (SDC) | payer OTHER ==
--- NOTE | 2023-09-07 16:02 | NUR ---
LVAD DRSG CHANGE. ALL SUPPLIES PROVIDED BY THE PATIENT. SECUREMENT DEVICE NOT CHANGED TODAY, PATIENT REPORTS HE CHANGED IT YESTERDAY. OLD DRSG CAREFULLY REMOVED. AREA CLEANSED THOROUGHLY WITH CHLOROPREP AND ALLOWED TO DRY. STERILE SALINE SOAKED SILVADENE DRAIN SPONGE APPLIED AROUND THE DRIVELINE SITE. SMALL RED AREA WHERE THE DRIVELINE MOVES FROM SIDE TO SIDE. 2 STERILE 4X4 GAUZE FOLDED AND PLACED ON TOP. WINDOW DRSG PLACED OVER TOP OF GAUZE. TWO EXTRA TELFA DRSG ADDED TO THE TOP AND SECURED ON ALL EDGES FOR ADDED SECUREMENT. NO ACUTE CHANGE FROM LAST WEEK DRSG CHANGE
== END 2023-09-07 15:04 | disposition home or self-care (01) ==
LOC: ATC 04:26
DX: Z48.01 Encounter for change or removal of surgical wound dressing (principal); Z95.811 Presence of heart assist device
CPT/HCPCS: 99212

== ENCOUNTER 2023-09-07 05:03 | Day surgery (SDC) | payer OTHER | END 2023-09-07 23:00 | disposition home or self-care (01) | LOC: WOUND 05:03 | DX: E11.622 Type 2 diabetes mellitus with other skin ulcer (principal); L97.822 Non-pressure chronic ulcer of other part of left lower leg with fat layer exposed; S81.002D Unspecified open wound, left knee, subsequent encounter; X58.XXXD Exposure to other specified factors, subsequent encounter; E11.621 Type 2 diabetes mellitus with foot ulcer; E11.51 Type 2 diabetes mellitus with diabetic peripheral angiopathy without gangrene; I70.202 Unspecified atherosclerosis of native arteries of extremities, left leg; I50.84 End stage heart failure; Z89.611 Acquired absence of right leg above knee ==

== ENCOUNTER 2023-09-14 01:31 | Day surgery (SDC) | payer OTHER ==
--- NOTE | 2023-09-14 16:59 | NUR ---
[facility] DRESSING: ALL SUPPLIES SUPPLIED BY PT. STERILE TECHNIQUE MAINTAINED T/O PROCEDURE. OLD DRESSING TAKEN DOWN. INSERTION SITE SLIGHTLY RED AND HAS SMALL AMOUNT OF BROWNISH DRAINAGE WHICH IS NORMAL FOR PT. AREA CLEANSED PER STERILE PROTOCOL AMD DRESSING APPLIED PER INSTRUCTION KIT SUPPLIED
== END 2023-09-14 16:08 | disposition home or self-care (01) ==
LOC: ATC 01:31
DX: Z48.01 Encounter for change or removal of surgical wound dressing (principal); Z95.811 Presence of heart assist device
CPT/HCPCS: 99211

== ENCOUNTER 2023-09-14 01:41 | Day surgery (SDC) | payer OTHER | END 2023-09-14 23:18 | disposition home or self-care (01) | LOC: WOUND 01:41 | DX: E11.622 Type 2 diabetes mellitus with other skin ulcer (principal); L97.822 Non-pressure chronic ulcer of other part of left lower leg with fat layer exposed; S81.002D Unspecified open wound, left knee, subsequent encounter; E11.621 Type 2 diabetes mellitus with foot ulcer; I70.202 Unspecified atherosclerosis of native arteries of extremities, left leg; E11.51 Type 2 diabetes mellitus with diabetic peripheral angiopathy without gangrene; Z89.611 Acquired absence of right leg above knee; R77.0 Abnormality of albumin; I50.84 End stage heart failure | CPT/HCPCS: G0463 ==

== ENCOUNTER 2023-09-21 01:14 | Day surgery (SDC) | payer OTHER ==
--- NOTE | 2023-09-21 16:05 | NUR ---
LVAD DRSG CHANGE OLD DRSG REMOVED. AREA CLEANSED WITH CHLORAPREP AND AIR DRIED. SMALL AREA OF REDNESS AND BROWN COLORED DRAINAGE AROUND DRIVELINE INSERTION SITE. SALINE SOAKED SILVADENE GAUZE PLACED AROUND THE DRIVELINE AT THE INSERTION SITE. 2 STERILE 4X4 GAUZE FOLDED AND PLACED OVER TOP. WINDOW TEGADERM PLACED OVER THE TOP OF THAT AND SECURED AROUND ALL EDGED. TWO EXTRA TELFA PLACED FOR ADDED SECUREMENT. SECUREMENT IDEVICE INTACT. ALL SUPPLIED SUPPLIED BY THE PATIENT
== END 2023-09-21 15:34 | disposition home or self-care (01) ==
LOC: ATC 01:14
DX: Z48.01 Encounter for change or removal of surgical wound dressing (principal); Z95.811 Presence of heart assist device
CPT/HCPCS: 99212

== ENCOUNTER 2023-09-21 01:52 | Day surgery (SDC) | payer OTHER | END 2023-09-21 22:49 | disposition home or self-care (01) | LOC: WOUND 01:52 | DX: E11.622 Type 2 diabetes mellitus with other skin ulcer (principal); L97.822 Non-pressure chronic ulcer of other part of left lower leg with fat layer exposed; S81.002D Unspecified open wound, left knee, subsequent encounter; X58.XXXD Exposure to other specified factors, subsequent encounter; E11.621 Type 2 diabetes mellitus with foot ulcer; E11.51 Type 2 diabetes mellitus with diabetic peripheral angiopathy without gangrene; I70.202 Unspecified atherosclerosis of native arteries of extremities, left leg; I50.84 End stage heart failure; R77.0 Abnormality of albumin; Z89.611 Acquired absence of right leg above knee | CPT/HCPCS: G0463 ==

== ENCOUNTER 2023-09-28 01:27 | Day surgery (SDC) | payer OTHER ==
--- NOTE | 2023-09-28 16:11 | NUR ---
OLD LVAD DRESSING REMOVED. PT BROUGHT ALL SUPPLIES TO CHANGE DRESSING. STERILE TECHNIQUE MAINTAINED TO APPLY NEW LVAD DRESSING. AREA CLEANSED FOR 30 SECONDS WITH CHLORHEXADINE AND ALLOWED TO DRY FOR 30 SECONDS. THREE PIN POINT SIZED ABRASIONS NOTED TO THE RIGHT OF THE DRIVELINE INSERTION SITE. WILL CONTINUE TO MONITOR FOR SKIN BREAKDOWN. BARRIER PREP APPLIED TO THE SKIN AND ALLOWED TO DRY. SILVADENE DRAIN SPONGE APPLIED AROUND DRIVELINE INSERTION SITE. STERILE 4X4 LEONCIO APPLIED OVER THE SILVADENE DRESSING AND OVER THE ABOVE NOTED ABRASION SITE FOLLOWED BY WINDOW DRESSING. 2 TELFA DRESSINGS APPLIED OVER THE WINDOW DRESSING. ALL EDGES SEALED. OLD ANCHOR REMOVED. AREA CLEANSED WITH ALCOHOL FOLLOWED BY BARRIER PREP AND NEW ANCHOR APPLIED.
== END 2023-09-28 11:56 | disposition home or self-care (01) ==
LOC: ATC 01:27
DX: Z48.01 Encounter for change or removal of surgical wound dressing (principal); Z95.811 Presence of heart assist device
CPT/HCPCS: 99212

== ENCOUNTER 2023-09-28 01:30 | Day surgery (SDC) | payer OTHER | END 2023-09-28 22:46 | disposition home or self-care (01) | LOC: WOUND 01:30 | DX: E11.51 Type 2 diabetes mellitus with diabetic peripheral angiopathy without gangrene (principal); L97.822 Non-pressure chronic ulcer of other part of left lower leg with fat layer exposed; I70.248 Atherosclerosis of native arteries of left leg with ulceration of other part of lower leg; S81.002D Unspecified open wound, left knee, subsequent encounter; I50.84 End stage heart failure; R77.0 Abnormality of albumin; Z89.611 Acquired absence of right leg above knee; Z76.82 Awaiting organ transplant status | CPT/HCPCS: G0463 ==

== ENCOUNTER 2023-10-05 02:51 | Day surgery (SDC) | payer OTHER ==
--- NOTE | 2023-10-05 12:58 | NUR ---
LVAD DRSG CHANGE - LATE ENTRY OLD DRSG REMOVED AND AREA CLEANSED WITH CHOROPREP. ALLOWED TO AIR DRY. SMALL AREA OF REDNESS AROUND DRIVELINE INSERTION SITE. STERILE SALINE SOAKED SILVADENE LEONCIO PLACED AROUND THE DRIVELINE AT THE INSERTION SITE. 2 STERILE 4X4 GAUZE FOLDED AND PLACED OVER THE TOP AND THEN COVERED WITH STERILE WINDOW TEGADERM. TWO ADDITIONAL TELFA DRSG APPLIED TO IMPROVE SECURITY. SECUREMENT DEVICE INTACT AND THEREFORE NOT CHANGED TODAY. ALL SUPPLIES PROVIDED BY THE PATIENT. STERILE TECHNIQUE MAINTAINED T/O
== END 2023-10-05 11:58 | disposition home or self-care (01) ==
LOC: ATC 02:51
DX: Z48.01 Encounter for change or removal of surgical wound dressing (principal); Z95.811 Presence of heart assist device; Z88.1 Allergy status to other antibiotic agents
CPT/HCPCS: 99212

== ENCOUNTER 2023-10-05 03:22 | Day surgery (SDC) | payer OTHER | END 2023-10-05 22:45 | disposition home or self-care (01) | LOC: WOUND 03:22 | DX: S81.002D Unspecified open wound, left knee, subsequent encounter (principal); X58.XXXD Exposure to other specified factors, subsequent encounter; E11.621 Type 2 diabetes mellitus with foot ulcer; E11.622 Type 2 diabetes mellitus with other skin ulcer; L97.829 Non-pressure chronic ulcer of other part of left lower leg with unspecified severity; E11.51 Type 2 diabetes mellitus with diabetic peripheral angiopathy without gangrene; I70.202 Unspecified atherosclerosis of native arteries of extremities, left leg; Z89.611 Acquired absence of right leg above knee; I50.84 End stage heart failure; R77.0 Abnormality of albumin | CPT/HCPCS: G0463 ==

== ENCOUNTER 2023-11-23 02:32 | Day surgery (SDC) | payer OTHER | END 2023-11-23 23:02 | disposition home or self-care (01) | LOC: WOUND 02:32 | DX: I70.202 Unspecified atherosclerosis of native arteries of extremities, left leg (principal); S81.002D Unspecified open wound, left knee, subsequent encounter; E11.9 Type 2 diabetes mellitus without complications; I50.84 End stage heart failure; R77.0 Abnormality of albumin; Z76.82 Awaiting organ transplant status; Z89.611 Acquired absence of right leg above knee; Z86.31 Personal history of diabetic foot ulcer; Z48.01 Encounter for change or removal of surgical wound dressing; I11.0 Hypertensive heart disease with heart failure; I50.23 Acute on chronic systolic (congestive) heart failure; E11.40 Type 2 diabetes mellitus with diabetic neuropathy, unspecified; M10.9 Gout, unspecified; E78.5 Hyperlipidemia, unspecified; I48.0 Paroxysmal atrial fibrillation; Z88.8 Allergy status to other drugs, medicaments and biological substances; Z91.040 Latex allergy status | CPT/HCPCS: 99212; G0463 ==

== ENCOUNTER 2023-12-08 01:40 | Day surgery (SDC) | payer OTHER ==
--- NOTE | 2023-12-08 11:38 | NUR ---
LVAD DRSG CHANGE ALL SUPPLIED PROVIDED BY THE PATIENT. OLD DRSG REMOVED. STABILIZATION DEVICE CHANGED. AREA CLEANSED WITH CHLOROPREP THOROUGHLY AND AIR DRIED. STERILE SALINE SOAKED SILVADENE GAUZE APPLIED AROUND THE DRIVELINE AT THE INSERTION SITE. TWO STERILE 4X4 GAUZE FOLDED AND PLACED ON TOP OF THE DRIVELINE. WINDOW DRSG APPLIED AND SECURED ON ALL 4 EDGES. 2 EXTRA TELFA APPLIED FOR ADDED SECUREMENT. NO SIGNS OF INCREASED DRAINAGE, NO INCREAE IN REDDENED AREAS AND NO FOUL ODOR.
== END 2023-12-08 11:35 | disposition home or self-care (01) ==
LOC: ATC 01:40
DX: I11.0 Hypertensive heart disease with heart failure (principal); I50.23 Acute on chronic systolic (congestive) heart failure; E11.40 Type 2 diabetes mellitus with diabetic neuropathy, unspecified; E78.5 Hyperlipidemia, unspecified; I48.0 Paroxysmal atrial fibrillation; E66.9 Obesity, unspecified; Z79.4 Long term (current) use of insulin; Z79.01 Long term (current) use of anticoagulants; Z79.899 Other long term (current) drug therapy; Z88.8 Allergy status to other drugs, medicaments and biological substances; Z91.040 Latex allergy status; Z87.891 Personal history of nicotine dependence
CPT/HCPCS: 99212

== ENCOUNTER 2023-12-15 04:20 | Day surgery (SDC) | payer OTHER ==
--- NOTE | 2023-12-15 14:06 | NUR ---
LVAD DRSG CHANGE ALL SUPPLIES PROVIDED BY THE PATIENT. STERILE TECHNIQUE MAINTAINED T/O. SECUREMENT DEVICE CHANGED. OLD DRSG REMOVED. AREA CLEANSED THOROUGHLY WITH CHLOROPREP X2 AND ALLOWED TO AIR DRY. INSERTION SITE OF THE DRIVELINE CONTINUES TO BE REDDENED WITH A SMALL PINPOINT AREA OF RED BENEATH THE DRIVELINE. STERILE SALINE SOAKED SILVADENE GAUZE PLACED AROUND THE DRIVELINE. COVERED WITH 2 4X4 STERILE GAUZE. WINDOW DRSG APPLIED AND SECURED ON ALL FOUR EDGES. TWO EXTRA TELFA DRSG APPLIED FOR ADDED SECUREMENT. 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
== END 2023-12-15 14:00 | disposition home or self-care (01) ==
LOC: ATC 04:20
DX: I11.0 Hypertensive heart disease with heart failure (principal); I50.23 Acute on chronic systolic (congestive) heart failure; E11.40 Type 2 diabetes mellitus with diabetic neuropathy, unspecified; E11.621 Type 2 diabetes mellitus with foot ulcer; E78.5 Hyperlipidemia, unspecified; I48.0 Paroxysmal atrial fibrillation; Z79.899 Other long term (current) drug therapy; Z79.4 Long term (current) use of insulin; Z79.01 Long term (current) use of anticoagulants; Z88.8 Allergy status to other drugs, medicaments and biological substances; Z91.040 Latex allergy status; Z87.891 Personal history of nicotine dependence
CPT/HCPCS: 99212

== ENCOUNTER 2023-12-20 04:30 | Day surgery (SDC) | payer OTHER ==
[2023-12-20 11:35] VITALS: BP 130/81
--- NOTE | 2023-12-20 12:45 | NUR ---
LVAD DRESSING CHANGE: SERILE TECHNIQUE MAINTAINED T/O DRESSING CHANGE. PT BROUGHT OWN DRESSING SUPPLIES. PT STATES THAT HE WILL BE TEACHING HIS DENTAL NURSE THIS DRESSING CHANGE NEXT WEEK. CHLOROPREP X 2 USED, SMALL SPOT OF REDNESS BENEATH DRIVELINE AND BROWN CRUSTY DRAINAGE ( USUAL) USUAL, HOWEVER NO OTHER S/S OF INFECTION. DRESSING APPLIED PER INSTRUCTION AND PTS WANTS
== END 2023-12-20 11:55 | disposition home or self-care (01) ==
LOC: ATC 04:30
DX: I11.0 Hypertensive heart disease with heart failure (principal); I50.23 Acute on chronic systolic (congestive) heart failure; I48.91 Unspecified atrial fibrillation; E11.9 Type 2 diabetes mellitus without complications; E78.5 Hyperlipidemia, unspecified; F17.210 Nicotine dependence, cigarettes, uncomplicated; Z86.718 Personal history of other venous thrombosis and embolism; Z79.899 Other long term (current) drug therapy; Z79.01 Long term (current) use of anticoagulants; Z79.4 Long term (current) use of insulin; Z88.8 Allergy status to other drugs, medicaments and biological substances; Z91.040 Latex allergy status
CPT/HCPCS: 99211

== ENCOUNTER 2024-01-25 02:52 | Day surgery (SDC) | payer OTHER ==
--- NOTE | 2024-01-25 15:30 | NUR ---
LVAD DRSG CHANGE ALL SUPPLIES PROVIDED BY THE PATIENT. ANCHOR DEVICE NOT CHANGED. OLD DRSG REMOVED. SURROUNDING SKIN C/D/I. INSERTION SITE REDDENED THROUGHOUT INSERTION AREA BENEATH THE DRIVELINE. SMALL AMOUNT OF DRIED DARK BROWN DRAINAGE AT THE INSERTION SITE. NO ODOR PRESENT. AREA CLEANSED THOROUGHLY WITH CHLOROPREP AND AIR DRIED. STERILE SALINE SOAKED SILVADENE GAUZE PLACED AROUND THE DRIVELINE AT THE INSERTION SITE. TWO FOLDED STERILE 4X4 GAUZE PLACED OVER TOP FOLLOWED BY WINDOW TEGADERM. TWO EXTRA TELFA PLACED FOR ADDED SECUREMENT. STERILE TECHNIQUE MAINTAINED T/O. PATIENT NOTED TO HAVE 2-3+ PITTING EDEMA THROUGHOUT ALL EXTREMETIES. ENCOURAGED PATIENT TO CALL HIS CARDIAC TEAM AND/OR GO TO ER FOR EVALUATION. HE SAYS HE DOESN'T WANT TO GO TO [facility] AND THAT THAT'S ALL ANYONE WILL TELL HIM TO DO. HE SAID HE PLANS TO GO HOME AND "DOUBLE UP ON HIS TORSEMIDE" RN PROVIDED EDUCATION ON FOLLOWING DR ORDERS FOR APPROPRIATE DOSING OF HIS PRESCRIPTIONS. PATIENT SAID THAT HE WILL CALL HIS CARDIAC TEAM AND LET THEM KNOW THAT HE IS DOUBLING HIS DIURETIC. PATIENT DISCHARGED IN STABLE CONDITION.
== END 2024-01-25 14:50 | disposition home or self-care (01) ==
LOC: ATC 02:52
DX: Z48.01 Encounter for change or removal of surgical wound dressing (principal); I11.0 Hypertensive heart disease with heart failure; I50.23 Acute on chronic systolic (congestive) heart failure; K52.9 Noninfective gastroenteritis and colitis, unspecified; E11.40 Type 2 diabetes mellitus with diabetic neuropathy, unspecified; E78.5 Hyperlipidemia, unspecified; E55.9 Vitamin D deficiency, unspecified; M10.9 Gout, unspecified; I48.0 Paroxysmal atrial fibrillation; G51.0 Bell's palsy; F32.9 Major depressive disorder, single episode, unspecified; Z79.899 Other long term (current) drug therapy; Z79.4 Long term (current) use of insulin; Z88.8 Allergy status to other drugs, medicaments and biological substances; Z91.040 Latex allergy status; Z87.891 Personal history of nicotine dependence
CPT/HCPCS: 99212

== ENCOUNTER 2024-02-01 02:19 | Day surgery (SDC) | payer OTHER ==
--- NOTE | 2024-02-01 15:53 | NUR ---
LVAD DRSG CHANGE ALL SUPPLIES PROVIDED BY THE PATIENT. ANCHOR DEVICE CHANGED TODAY. OLD DRSG REMOVED. SURROUNDING SKIN C/D/I. INSERTION SITE WITH SMALL PIN POINT REDDENED AREA BENEATH THE DRIVELINE. SMALL AMOUNT OF DRIED DARK BROWN DRAINAGE AT THE INSERTION SITE. NO ODOR PRESENT. AREA CLEANSED THOROUGHLY WITH CHLOROPREP AND AIR DRIED. STERILE SALINE SOAKED SILVADENE GAUZE PLACED AROUND THE DRIVELINE AT THE INSERTION SITE. TWO FOLDED STERILE 4X4 GAUZE PLACED OVER TOP FOLLOWED BY WINDOW TEGADERM. TWO EXTRA TELFA PLACED FOR ADDED SECUREMENT. STERILE TECHNIQUE MAINTAINED T/O
== END 2024-02-01 14:53 | disposition home or self-care (01) ==
LOC: ATC 02:19
DX: Z48.01 Encounter for change or removal of surgical wound dressing (principal); I11.0 Hypertensive heart disease with heart failure; I50.23 Acute on chronic systolic (congestive) heart failure; E11.40 Type 2 diabetes mellitus with diabetic neuropathy, unspecified; G51.0 Bell's palsy; K76.0 Fatty (change of) liver, not elsewhere classified; E78.5 Hyperlipidemia, unspecified; I48.0 Paroxysmal atrial fibrillation; E55.9 Vitamin D deficiency, unspecified; Z79.4 Long term (current) use of insulin; Z79.899 Other long term (current) drug therapy; Z91.040 Latex allergy status; Z88.8 Allergy status to other drugs, medicaments and biological substances; Z87.891 Personal history of nicotine dependence
CPT/HCPCS: 99212

== ENCOUNTER 2024-02-09 03:10 | Day surgery (SDC) | payer OTHER | END 2024-02-09 14:26 | disposition home or self-care (01) | LOC: ATC 03:10 | DX: Z48.01 Encounter for change or removal of surgical wound dressing (principal); I48.91 Unspecified atrial fibrillation; I11.0 Hypertensive heart disease with heart failure; I50.23 Acute on chronic systolic (congestive) heart failure; E11.40 Type 2 diabetes mellitus with diabetic neuropathy, unspecified; E78.5 Hyperlipidemia, unspecified; I48.0 Paroxysmal atrial fibrillation; E55.9 Vitamin D deficiency, unspecified | CPT/HCPCS: 99212 ==

== ENCOUNTER 2024-02-16 02:36 | Day surgery (SDC) | payer OTHER | END 2024-02-16 23:14 | disposition home or self-care (01) | LOC: WOUND 02:36 | DX: E11.621 Type 2 diabetes mellitus with foot ulcer (principal); L97.922 Non-pressure chronic ulcer of unspecified part of left lower leg with fat layer exposed; E11.622 Type 2 diabetes mellitus with other skin ulcer; I70.202 Unspecified atherosclerosis of native arteries of extremities, left leg; I50.84 End stage heart failure; R77.0 Abnormality of albumin; Z89.611 Acquired absence of right leg above knee | CPT/HCPCS: G0463 ==

== ENCOUNTER 2024-02-16 13:42 | Day surgery (SDC) | payer OTHER ==
--- NOTE | 2024-02-16 13:59 | NUR ---
LVAD DRSG CHANGE DONE PER Karen DYSON RN ALL SUPPLIES PROVIDED BY THE PATIENT. ANCHOR DEVICE CHANGED TODAY. OLD DRSG REMOVED. SURROUNDING SKIN C/D/I. INSERTION SITE WITH SMALL PIN POINT REDDENED AREA BENEATH THE DRIVELINE. SMALL AMOUNT OF DRIED DARK BROWN DRAINAGE AT THE INSERTION SITE. NO ODOR PRESENT. AREA CLEANSED THOROUGHLY WITH CHLOROPREP AND AIR DRIED. STERILE SALINE SOAKED SILVADENE GAUZE PLACED AROUND THE DRIVELINE AT THE INSERTION SITE. TWO FOLDED STERILE 4X4 GAUZE PLACED OVER TOP FOLLOWED BY WINDOW TEGADERM. TWO EXTRA TELFA PLACED FOR ADDED SECUREMENT. STERILE TECHNIQUE MAINTAINED T/O
== END 2024-02-16 14:05 | disposition home or self-care (01) ==
LOC: ATC 13:42
DX: I50.9 Heart failure, unspecified (principal)
CPT/HCPCS: 99211

== ENCOUNTER 2024-02-23 01:42 | Day surgery (SDC) | payer OTHER | END 2024-02-23 22:38 | disposition home or self-care (01) | LOC: WOUND 01:42 | DX: S81.002D Unspecified open wound, left knee, subsequent encounter (principal); E11.621 Type 2 diabetes mellitus with foot ulcer; E11.622 Type 2 diabetes mellitus with other skin ulcer; L97.802 Non-pressure chronic ulcer of other part of unspecified lower leg with fat layer exposed; I70.202 Unspecified atherosclerosis of native arteries of extremities, left leg; I50.84 End stage heart failure; R77.0 Abnormality of albumin; X58.XXXD Exposure to other specified factors, subsequent encounter; Z89.611 Acquired absence of right leg above knee | CPT/HCPCS: G0463 ==

== ENCOUNTER 2024-02-23 02:38 | Day surgery (SDC) | payer OTHER ==
--- NOTE | 2024-02-23 15:49 | NUR ---
LVAD DRSG CHANGE ALL SUPPLIES PROVIDED BY THE PATIENT. ANCHOR DEVICE CHANGED TODAY. OLD DRSG REMOVED. SURROUNDING SKIN C/D/I. INSERTION SITE WITH SMALL PIN POINT REDDENED AREA BENEATH THE DRIVELINE. SMALL AMOUNT OF DRIED DARK BROWN DRAINAGE AT THE INSERTION SITE. NO ODOR PRESENT. AREA CLEANSED THOROUGHLY WITH CHLOROPREP AND AIR DRIED. STERILE SALINE SOAKED SILVADENE GAUZE PLACED AROUND THE DRIVELINE AT THE INSERTION SITE. TWO FOLDED STERILE 4X4 GAUZE PLACED OVER TOP FOLLOWED BY WINDOW TEGADERM. AN EXTRA TELFA PLACED FOR ADDED SECUREMENT. STERILE TECHNIQUE MAINTAINED T/O
== END 2024-02-23 15:35 | disposition home or self-care (01) ==
LOC: ATC 02:38
DX: Z48.01 Encounter for change or removal of surgical wound dressing (principal); I11.0 Hypertensive heart disease with heart failure; I50.23 Acute on chronic systolic (congestive) heart failure; E11.40 Type 2 diabetes mellitus with diabetic neuropathy, unspecified; I48.0 Paroxysmal atrial fibrillation; F17.210 Nicotine dependence, cigarettes, uncomplicated; Z79.4 Long term (current) use of insulin; Z79.899 Other long term (current) drug therapy; Z88.8 Allergy status to other drugs, medicaments and biological substances; Z91.040 Latex allergy status
CPT/HCPCS: 99212

== ENCOUNTER 2024-03-01 05:33 | Day surgery (SDC) | payer OTHER ==
--- NOTE | 2024-03-01 14:25 | NUR ---
LVAD DRESSING CHANGE All supplies provided by patient. Old dressing removed, no old drainage noted. Pin point redness under the driveline. Cleaned site with hibiclens and then sterile saline and allowed to dry. Sterile saline applied to silvadene drain dressing and drain dressing applied to LVAD insertion site. Skin prep applied and allowed to dry. 2 4x4 sterile gauze, a window dressing and 2 telfa dressings applied over the site. Drive line anchor not changed today. Sterile technique maintained throughout the dressing change.
== END 2024-03-01 14:40 | disposition home or self-care (01) ==
LOC: ATC 05:33
DX: Z48.01 Encounter for change or removal of surgical wound dressing (principal); I11.0 Hypertensive heart disease with heart failure; I50.23 Acute on chronic systolic (congestive) heart failure; K21.9 Gastro-esophageal reflux disease without esophagitis; M17.12 Unilateral primary osteoarthritis, left knee; E11.40 Type 2 diabetes mellitus with diabetic neuropathy, unspecified; I48.0 Paroxysmal atrial fibrillation; E78.5 Hyperlipidemia, unspecified; M10.9 Gout, unspecified; Z79.4 Long term (current) use of insulin; Z79.899 Other long term (current) drug therapy; Z79.01 Long term (current) use of anticoagulants
CPT/HCPCS: 99211

== ENCOUNTER 2024-03-07 03:03 | Day surgery (SDC) | payer OTHER ==
[2024-03-07] MEDS ORDERED: Bupropion HCl100 MG PO (14:43)
[2024-03-07] MEDS ORDERED: TORS10 (14:44)
--- NOTE | 2024-03-07 15:02 | NUR ---
LVAD DRESSING CHANGE All supplies provided by patient. Old dressing removed, old BROWN drainage noted. Pin point redness under the driveline. Cleaned site with CHLOROPREP and then sterile saline and allowed to dry. Sterile saline applied to silvadene drain dressing and drain dressing applied to LVAD insertion site. Skin prep applied and allowed to dry. 2 4x4 sterile gauze, a window dressing and 2 telfa dressings applied over the site. Drive line anchor changed today. Sterile technique maintained throughout the dressing change.
== END 2024-03-07 14:52 | disposition home or self-care (01) ==
LOC: ATC 03:03
DX: Z48.01 Encounter for change or removal of surgical wound dressing (principal); I11.0 Hypertensive heart disease with heart failure; I50.23 Acute on chronic systolic (congestive) heart failure; K21.9 Gastro-esophageal reflux disease without esophagitis; E11.40 Type 2 diabetes mellitus with diabetic neuropathy, unspecified; K76.0 Fatty (change of) liver, not elsewhere classified; E78.5 Hyperlipidemia, unspecified; I48.0 Paroxysmal atrial fibrillation; Z79.899 Other long term (current) drug therapy; Z79.01 Long term (current) use of anticoagulants; Z79.4 Long term (current) use of insulin; Z88.8 Allergy status to other drugs, medicaments and biological substances; Z91.040 Latex allergy status
CPT/HCPCS: 99212

== ENCOUNTER 2024-04-04 02:50 | Day surgery (SDC) | payer OTHER ==
[~2024-04-04 02:50] MED LIST changes: +AMOCLA875 PO; +Bupropion HCl100 MG PO; +TORS10 PO
--- NOTE | 2024-04-04 16:16 | NUR ---
LVAD DRSG CHANGE ALL SUPPLIES PROVIDED BY THE PATIENT. SECUREMENT DEVICE CHANGED. OLD DRSG REMOVED. LARGE AMOUNT OF BROWN DRAINAGE NOTED. SHOWED PATIENT OLD DRSG WITH DRAINAGE PRESENT AND ENCOURAGED HIM TO REACH OUT TO HIS CARDIAC TEAM TO NOTIFY THEM OF CHANGES. SCATTERED SMALL RED PINPOINT SPOTS REMAIN AROUND THE DRIVELINE INSERTION SITE. AREA CLEANSED WITH TWO CHLOROPREP SWABS. AREA ALLOWED TO AIR DRY. SALINE SOAKED SILVADENE GAUZE PLACED AROUND DRIVELINE INSERTION SITE. COVERED WITH 2 4X4 STERILE GAUZE. WINDOW TEGADERM PLACED OVER THE TOP. TWO EXTRA TELFA PLACED FOR ADDED SECUREMENT. STERILE TECHNIQUE MAINTAINED T/O
== END 2024-04-04 16:10 | disposition home or self-care (01) ==
LOC: ATC 02:50
DX: Z48.01 Encounter for change or removal of surgical wound dressing (principal); K21.9 Gastro-esophageal reflux disease without esophagitis; I11.0 Hypertensive heart disease with heart failure; I50.23 Acute on chronic systolic (congestive) heart failure; M10.9 Gout, unspecified; E11.40 Type 2 diabetes mellitus with diabetic neuropathy, unspecified; I48.0 Paroxysmal atrial fibrillation; Z79.899 Other long term (current) drug therapy; Z88.8 Allergy status to other drugs, medicaments and biological substances; Z79.4 Long term (current) use of insulin
CPT/HCPCS: 99212

== ENCOUNTER 2024-04-11 15:16 | Day surgery (SDC) | payer OTHER ==
--- NOTE | 2024-04-11 15:59 | NUR ---
LVAD DRSG CHANGE ALL SUPPLIES PROVIDED BY THE PATIENT. ANCHOR NOT CHANGED. OLD DRSG REMOVED. LARGE AMOUNT OF BROWN DRAINAGE NOTED. SHOWED PATIENT OLD DRSG WITH DRAINAGE PRESENT AND ENCOURAGED HIM TO REACH OUT TO HIS CARDIAC TEAM TO NOTIFY THEM OF CHANGES. SCATTERED SMALL RED PINPOINT SPOTS REMAIN AROUND THE DRIVELINE INSERTION SITE. AREA CLEANSED WITH TWO CHLOROPREP SWABS. AREA ALLOWED TO AIR DRY. SALINE SOAKED SILVADENE GAUZE PLACED AROUND DRIVELINE INSERTION SITE. COVERED WITH 2 4X4 STERILE GAUZE. WINDOW TEGADERM PLACED OVER THE TOP. TWO EXTRA TELFA PLACED FOR ADDED SECUREMENT. STERILE TECHNIQUE MAINTAINED T/O
== END 2024-04-11 15:36 | disposition home or self-care (01) ==
LOC: ATC 15:16
DX: Z48.01 Encounter for change or removal of surgical wound dressing (principal); I11.0 Hypertensive heart disease with heart failure; I50.23 Acute on chronic systolic (congestive) heart failure; K21.9 Gastro-esophageal reflux disease without esophagitis; M17.12 Unilateral primary osteoarthritis, left knee; E11.40 Type 2 diabetes mellitus with diabetic neuropathy, unspecified; I48.0 Paroxysmal atrial fibrillation; F33.1 Major depressive disorder, recurrent, moderate; Z79.899 Other long term (current) drug therapy; Z79.4 Long term (current) use of insulin; Z79.01 Long term (current) use of anticoagulants; Z88.8 Allergy status to other drugs, medicaments and biological substances; Z91.040 Latex allergy status
CPT/HCPCS: 99212

== ENCOUNTER 2024-04-17 03:36 | Day surgery (SDC) | payer OTHER ==
--- NOTE | 2024-04-17 16:54 | NUR ---
LVAD dressing changed. Pt supplied all supplies to change dressing. Old dressing removed. Pt has red area under drive line. Small amount of light kennedy drainage noted on old dressing. Cleaned with chlorprep and allowed to dry. Saline soaked silver dressing applied around LVAD drive line. Sterile 4x4 gauze pads with tegaderm dressing applied. Two telfa dressings applied over the top of the tegaderm dressing. Sterile technique maintained throughout the procedure.
== END 2024-04-17 15:41 | disposition home or self-care (01) ==
LOC: ATC 03:36
DX: I11.0 Hypertensive heart disease with heart failure (principal); I50.23 Acute on chronic systolic (congestive) heart failure; K21.9 Gastro-esophageal reflux disease without esophagitis; M17.12 Unilateral primary osteoarthritis, left knee; I48.0 Paroxysmal atrial fibrillation; E11.40 Type 2 diabetes mellitus with diabetic neuropathy, unspecified; E78.5 Hyperlipidemia, unspecified; E66.9 Obesity, unspecified; Z79.899 Other long term (current) drug therapy; Z79.4 Long term (current) use of insulin; Z79.01 Long term (current) use of anticoagulants; Z88.8 Allergy status to other drugs, medicaments and biological substances; Z91.040 Latex allergy status; Z87.891 Personal history of nicotine dependence
CPT/HCPCS: 99211

== ENCOUNTER 2024-05-02 01:45 | Day surgery (SDC) | payer OTHER ==
--- NOTE | 2024-05-02 18:00 | NUR ---
1545: LVAD DRESSING CHANGE: OLD DRESSING REMOVED. BROWN DRIED DRAINAGE NOTED AROUND INSERTION SITE. USED DRESSING KIT PROVIDED BY PATIENT. CLEANSED THE SITE WITH CHG PROVIDED AND ALLOWED TO DRY. PLACED SILVEDENE PATCH MOISTENED WITH STERILE NS ON INSERTION SITE, COVERED WITH STERILE 4X4 GAUZE. COVERED W/ PROVIDED TEGADERM DRESSING, THREE TELFA DRESSINGS. DRIVELINE SECUREMENT DEVICE WAS REPLACED. STERILE TECHNIQUE MAINTAINED. PT TOLERATED WELL.
== END 2024-05-02 15:49 | disposition home or self-care (01) ==
LOC: ATC 01:45
DX: Z48.01 Encounter for change or removal of surgical wound dressing (principal); I11.0 Hypertensive heart disease with heart failure; I50.23 Acute on chronic systolic (congestive) heart failure; I48.0 Paroxysmal atrial fibrillation; E11.40 Type 2 diabetes mellitus with diabetic neuropathy, unspecified; M10.9 Gout, unspecified; Z79.4 Long term (current) use of insulin; Z79.899 Other long term (current) drug therapy; Z88.8 Allergy status to other drugs, medicaments and biological substances; Z91.040 Latex allergy status
CPT/HCPCS: 99212

== ENCOUNTER 2024-05-10 01:16 | Day surgery (SDC) | payer OTHER ==
--- NOTE | 2024-05-10 15:43 | NUR ---
LVAD dressing changed. Pt supplied all supplies to change dressing. Old dressing removed. Pt has red area under drive line. Small amount of light kennedy drainage noted on old dressing. Cleaned with chlorprep and allowed to dry. Saline soaked silver dressing applied around LVAD drive line. Sterile 4x4 gauze pads with tegaderm dressing applied. Two telfa dressings applied over the top of the tegaderm dressing. Sterile technique maintained throughout the procedure. [place] changed today as well
== END 2024-05-10 15:09 | disposition home or self-care (01) ==
LOC: ATC 01:16
DX: Z45.09 Encounter for adjustment and management of other cardiac device (principal); I11.0 Hypertensive heart disease with heart failure; I50.22 Chronic systolic (congestive) heart failure; I48.0 Paroxysmal atrial fibrillation; K21.9 Gastro-esophageal reflux disease without esophagitis; E11.40 Type 2 diabetes mellitus with diabetic neuropathy, unspecified; E78.5 Hyperlipidemia, unspecified; Z88.8 Allergy status to other drugs, medicaments and biological substances; Z79.4 Long term (current) use of insulin; Z79.899 Other long term (current) drug therapy
CPT/HCPCS: 99212

== ENCOUNTER 2024-05-10 01:39 | Day surgery (SDC) | payer OTHER | END 2024-05-10 22:54 | disposition home or self-care (01) | LOC: WOUND 01:39 | DX: S81.002D Unspecified open wound, left knee, subsequent encounter (principal); E11.51 Type 2 diabetes mellitus with diabetic peripheral angiopathy without gangrene; I70.202 Unspecified atherosclerosis of native arteries of extremities, left leg; I50.84 End stage heart failure; E11.42 Type 2 diabetes mellitus with diabetic polyneuropathy; E78.5 Hyperlipidemia, unspecified; Z87.891 Personal history of nicotine dependence; Z89.611 Acquired absence of right leg above knee; Z91.040 Latex allergy status; Z88.8 Allergy status to other drugs, medicaments and biological substances | CPT/HCPCS: A6213; G0463 ==

== ENCOUNTER 2024-05-16 02:25 | Day surgery (SDC) | payer OTHER | END 2024-05-16 23:00 | disposition home or self-care (01) | LOC: WOUND 02:25 | DX: S81.002A Unspecified open wound, left knee, initial encounter (principal); X58.XXXA Exposure to other specified factors, initial encounter; E11.622 Type 2 diabetes mellitus with other skin ulcer; E11.51 Type 2 diabetes mellitus with diabetic peripheral angiopathy without gangrene; I70.202 Unspecified atherosclerosis of native arteries of extremities, left leg; I50.84 End stage heart failure; Z89.611 Acquired absence of right leg above knee | CPT/HCPCS: G0463 ==

== ENCOUNTER 2024-05-16 02:36 | Day surgery (SDC) | payer OTHER | END 2024-05-16 14:48 | disposition home or self-care (01) | LOC: ATC 02:36 | DX: Z48.01 Encounter for change or removal of surgical wound dressing (principal); I11.0 Hypertensive heart disease with heart failure; I50.22 Chronic systolic (congestive) heart failure; E11.9 Type 2 diabetes mellitus without complications; K21.9 Gastro-esophageal reflux disease without esophagitis; I48.0 Paroxysmal atrial fibrillation; M17.12 Unilateral primary osteoarthritis, left knee; E78.5 Hyperlipidemia, unspecified; F33.1 Major depressive disorder, recurrent, moderate; K76.0 Fatty (change of) liver, not elsewhere classified; Z87.891 Personal history of nicotine dependence; Z79.4 Long term (current) use of insulin; Z79.899 Other long term (current) drug therapy; Z91.040 Latex allergy status; Z88.8 Allergy status to other drugs, medicaments and biological substances; Z89.429 Acquired absence of other toe(s), unspecified side | CPT/HCPCS: 99211 ==

== ENCOUNTER 2024-05-30 02:09 | Day surgery (SDC) | payer OTHER ==
[2024-05-30] MEDS ORDERED: LITH300ER PO (16:33)
== END 2024-05-30 22:52 | disposition home or self-care (01) ==
LOC: WOUND 02:09
DX: S81.002D Unspecified open wound, left knee, subsequent encounter (principal); S80.212A Abrasion, left knee, initial encounter; X58.XXXA Exposure to other specified factors, initial encounter; E11.51 Type 2 diabetes mellitus with diabetic peripheral angiopathy without gangrene; I50.84 End stage heart failure; Z89.611 Acquired absence of right leg above knee
CPT/HCPCS: A6213; G0463

== ENCOUNTER 2024-05-30 02:13 | Day surgery (SDC) | payer OTHER ==
[2024-05-30] MEDS ORDERED: LITH300ER PO (16:33)
--- NOTE | 2024-05-30 17:04 | NUR ---
LVAD dressing changed. Pt provided supplies to change dressing. Old dressing removed. Pt has red area under drive line. Small amount of light brown drainage noted on old dressing. Cleaned with chlorprep and allowed to dry. Saline soaked silver dressing applied around LVAD drive line. Sterile 4x4 gauze pads with tegaderm dressing applied. Two telfa dressings applied over the top of the tegaderm dressing. Sterile technique maintained throughout the procedure.
== END 2024-05-30 16:57 | disposition home or self-care (01) ==
LOC: ATC 02:13
DX: Z48.812 Encounter for surgical aftercare following surgery on the circulatory system (principal); I11.0 Hypertensive heart disease with heart failure; I50.9 Heart failure, unspecified; K21.9 Gastro-esophageal reflux disease without esophagitis; M17.12 Unilateral primary osteoarthritis, left knee; E11.40 Type 2 diabetes mellitus with diabetic neuropathy, unspecified; E78.5 Hyperlipidemia, unspecified; F33.1 Major depressive disorder, recurrent, moderate; I48.0 Paroxysmal atrial fibrillation; Z79.899 Other long term (current) drug therapy; Z88.8 Allergy status to other drugs, medicaments and biological substances; Z91.040 Latex allergy status; Z87.891 Personal history of nicotine dependence; Z89.429 Acquired absence of other toe(s), unspecified side; Z89.611 Acquired absence of right leg above knee
CPT/HCPCS: 99212

== ENCOUNTER 2024-06-14 01:22 | Day surgery (SDC) | payer OTHER ==
[~2024-06-14 01:22] MED LIST changes: +LITH300ER PO
--- NOTE | 2024-06-14 15:27 | NUR ---
LVAD dressing changed. Pt supplied all supplies to change dressing. Old dressing removed. Pt has red area under drive line. Small amount of light kennedy drainage noted on old dressing. Cleaned with chlorprep and allowed to dry. Saline soaked silver dressing applied around LVAD drive line. Sterile 4x4 gauze pads with tegaderm dressing applied. Two telfa dressings applied over the top of the tegaderm dressing. Sterile technique maintained throughout the procedure. [place] changed today as well
== END 2024-06-14 15:35 | disposition home or self-care (01) ==
LOC: ATC 01:22
DX: Z48.812 Encounter for surgical aftercare following surgery on the circulatory system (principal); F33.1 Major depressive disorder, recurrent, moderate; E78.5 Hyperlipidemia, unspecified; I48.0 Paroxysmal atrial fibrillation; E11.40 Type 2 diabetes mellitus with diabetic neuropathy, unspecified; K76.0 Fatty (change of) liver, not elsewhere classified; Z91.040 Latex allergy status; Z88.8 Allergy status to other drugs, medicaments and biological substances; Z87.891 Personal history of nicotine dependence; Z89.511 Acquired absence of right leg below knee; Z89.429 Acquired absence of other toe(s), unspecified side
CPT/HCPCS: 99211

== ENCOUNTER 2024-06-14 04:19 | Day surgery (SDC) | payer OTHER | END 2024-06-14 23:47 | disposition home or self-care (01) | LOC: WOUND 04:19 | DX: E11.621 Type 2 diabetes mellitus with foot ulcer (principal); L97.422 Non-pressure chronic ulcer of left heel and midfoot with fat layer exposed; S80.212D Abrasion, left knee, subsequent encounter; E11.622 Type 2 diabetes mellitus with other skin ulcer; I70.202 Unspecified atherosclerosis of native arteries of extremities, left leg; I50.84 End stage heart failure; Z89.611 Acquired absence of right leg above knee; X58.XXXD Exposure to other specified factors, subsequent encounter | CPT/HCPCS: A6213; G0463 ==

== ENCOUNTER 2024-06-21 03:24 | Day surgery (SDC) | payer OTHER ==
--- NOTE | 2024-06-21 17:05 | NUR ---
LVAD DRSG CHANGE ALL SUPPLIES PROVIDED BY THE PATIENT. STERILE TECHNIQUE MAINTAINED T/O. ANCHOR DEVICE C/D/I AND NOT CHANGED TODAY. OLD DRSG REMOVED AND A LARGE AMOUNT OF BROWN, FOUL SMELLING DRAINAGE PRESENT AND PATIENT HAD ONE BLISTER IN THE 12 OCLOCK POSITION ABOVE THE SITE. INCREASED AREAS OF REDNESS AROUND THE DRIVELINE. PATIENT DID MISS HIS DRSG CHANGE LAST WEEK. EDUCATED PATIENT. CLEANSED WITH 3 CHLOROPREP AND ALLOWED TO AIR DRY. SKIN BARRIER APPLIED. 2 STERILE 4X4 APPLIED TO INSERTION SITE AND COVERED WITH TEGEADERM WINDOW DRSG. TWO EXTRA TELFA DRSGS APPLIED FOR ADDED SECUREMENT. PATIENT WAS VERY EDEMATOUS TODAY. 2-3+ PITTING EDEMA. PATIENT REPORTS THAT HE IS NOT TAKING HIS DIURETICS ORDERED BECAUSE HE "DOESN'T WANT TO GET TOO DRY" PROVIDED EDUCATION AND COUNSELING FOR TO PATIENT ABOUT TAKING MEDICATIONS ORDERED. PATIENT STATED HIS UNDERSTANDING
== END 2024-06-21 15:10 | disposition home or self-care (01) ==
LOC: ATC 03:24
DX: Z48.01 Encounter for change or removal of surgical wound dressing (principal); I11.0 Hypertensive heart disease with heart failure; I50.9 Heart failure, unspecified; E11.40 Type 2 diabetes mellitus with diabetic neuropathy, unspecified; M10.9 Gout, unspecified; E78.5 Hyperlipidemia, unspecified; F33.1 Major depressive disorder, recurrent, moderate; Z79.899 Other long term (current) drug therapy; Z79.4 Long term (current) use of insulin; Z88.8 Allergy status to other drugs, medicaments and biological substances; Z91.040 Latex allergy status
CPT/HCPCS: 99212

== ENCOUNTER 2024-07-10 00:35 | Day surgery (SDC) | payer OTHER ==
--- NOTE | 2024-07-10 14:51 | NUR ---
LVAD DRSG CHANGE ALL SUPPLIES PROVIDED BY THE PATIENT. STERILE TECHNIQUE MAINTAINED THROUGHOUT. ANCHOR DEVICE CHANGED TODAY. OLD DRSG REMOVED AND A SMALL AMOUNT OF BROWN, DRAINAGE PRESENT, NO ODOR, AND PATIENT HAD ONE BLISTER IN THE 12 OCLOCK POSITION ABOVE SITE, IMPROVED.AREAS OF DIFFUSE REDNESS AROUND THE DRIVELINE.EDUCATED PATIENT. CLEANSED WITH 2 CHLOROPREP AND ALLOWED TO AIR DRY. SKIN BARRIER APPLIED. 2 STERILE 4X4 APPLIED TO INSERTION SITE AND COVERED WITH TEGADERM WINDOW DRSG. TWO EXTRA TELFA DRSGS APPLIED FOR ADDED SECUREMENT.
== END 2024-07-10 14:47 | disposition home or self-care (01) ==
LOC: ATC 00:35
DX: Z48.01 Encounter for change or removal of surgical wound dressing (principal); I11.0 Hypertensive heart disease with heart failure; I50.9 Heart failure, unspecified; E11.40 Type 2 diabetes mellitus with diabetic neuropathy, unspecified; E78.5 Hyperlipidemia, unspecified; F33.1 Major depressive disorder, recurrent, moderate; I48.0 Paroxysmal atrial fibrillation; Z79.01 Long term (current) use of anticoagulants; Z79.4 Long term (current) use of insulin; Z79.899 Other long term (current) drug therapy; Z88.8 Allergy status to other drugs, medicaments and biological substances; Z91.040 Latex allergy status
CPT/HCPCS: 99212

== ENCOUNTER 2024-07-18 02:29 | Day surgery (SDC) | payer OTHER ==
--- NOTE | 2024-07-18 14:30 | NUR ---
Pt brings all supplies for dressing change. Moderate amount of light kennedy drainage around the site. Pinpoint open area under drive line of open area. Area surrounding the insertion site is reddened. Area cleaned with chlor prep and allowed to dry. NS soaked silvadene gauze applied around drive line. Sterile 4x4 [address] under the driveline to keep driveline off of the open area. 4x4 gauze applied over the top of the driveline as well. Tegaderm dressing applied over the gauze. Two telfa dressings applied over the top of the tegaderm dressing. Drive line anchor replaced and repositioned slighly higher to keep the drive line away from the pin point open area. Sterile technique maintained throughout the procedure.
== END 2024-07-18 14:38 | disposition home or self-care (01) ==
LOC: ATC 02:29
DX: Z48.01 Encounter for change or removal of surgical wound dressing (principal); I11.0 Hypertensive heart disease with heart failure; I50.9 Heart failure, unspecified; E11.40 Type 2 diabetes mellitus with diabetic neuropathy, unspecified; F33.1 Major depressive disorder, recurrent, moderate; E78.5 Hyperlipidemia, unspecified
CPT/HCPCS: 99211

== ENCOUNTER 2024-07-18 10:22 | Day surgery (SDC) | payer OTHER | END 2024-07-18 23:00 | disposition home or self-care (01) | LOC: WOUND 10:22 | DX: E11.621 Type 2 diabetes mellitus with foot ulcer (principal); L97.422 Non-pressure chronic ulcer of left heel and midfoot with fat layer exposed; E11.622 Type 2 diabetes mellitus with other skin ulcer; L97.822 Non-pressure chronic ulcer of other part of left lower leg with fat layer exposed; T81.30XD Disruption of wound, unspecified, subsequent encounter; I70.202 Unspecified atherosclerosis of native arteries of extremities, left leg; I50.84 End stage heart failure; E11.22 Type 2 diabetes mellitus with diabetic chronic kidney disease; Z89.611 Acquired absence of right leg above knee; Y83.8 Other surgical procedures as the cause of abnormal reaction of the patient, or of later complication, without mention of misadventure at the time of the procedure | CPT/HCPCS: A6213; G0463 ==

== ENCOUNTER 2024-07-25 02:20 | Day surgery (SDC) | payer OTHER | END 2024-07-25 23:00 | disposition home or self-care (01) | LOC: WOUND 02:20 | DX: E11.621 Type 2 diabetes mellitus with foot ulcer (principal); L97.428 Non-pressure chronic ulcer of left heel and midfoot with other specified severity; T81.31XA Disruption of external operation (surgical) wound, not elsewhere classified, initial encounter; E11.622 Type 2 diabetes mellitus with other skin ulcer; I70.202 Unspecified atherosclerosis of native arteries of extremities, left leg; I50.84 End stage heart failure; Z89.611 Acquired absence of right leg above knee; Y83.8 Other surgical procedures as the cause of abnormal reaction of the patient, or of later complication, without mention of misadventure at the time of the procedure | CPT/HCPCS: A6213 ==

== ENCOUNTER 2024-07-25 02:26 | Day surgery (SDC) | payer OTHER ==
--- NOTE | 2024-07-25 17:05 | NUR ---
LVAD DRESSING CHANGE TODAY. PT BROUGHT ALL SUPPLIES. OLD DRESSING REMOVED. STERILE TECHNIQUE MAINTAINED FOR CLEANING AND APPLYING NEW DRESSING. ERYTHEMA NOTED AROUND DRIVELINE INSERTION SITE. SKIN CLEANSED WITH CHLOROPREP FOR 30 SECONDS AND AIR DRIED FOR 30 SECONDS. SKIN PREP APPLIED TO SKIN AND AIR DRIED FOR 15 SECONDS. SALINE SOAKED SILVADENE DRAIN SPONGE APPLIED AROUND DRIVELINE INSERTION SITE. 2 STERILE 4X4 GAUZE PADS PLACED OVER THE TOP. WINDOW DRESSING APPLIED OVER GAUZE. FOLLOWED BY 3 TELFA DRESSINGS. OLD DRIVELINE STABILIZER REMOVED. ABRASION NOTED SUPERIORLY OF STABILIZER. AREA CLEANSED AND NEW STABILIZER APPLIED AWAY FROM ABRASION.
== END 2024-07-25 15:02 | disposition home or self-care (01) ==
LOC: ATC 02:26
DX: Z48.01 Encounter for change or removal of surgical wound dressing (principal); I11.0 Hypertensive heart disease with heart failure; I50.9 Heart failure, unspecified; E11.40 Type 2 diabetes mellitus with diabetic neuropathy, unspecified; E78.5 Hyperlipidemia, unspecified; F33.1 Major depressive disorder, recurrent, moderate; I48.0 Paroxysmal atrial fibrillation; Z79.4 Long term (current) use of insulin; Z79.899 Other long term (current) drug therapy; Z88.8 Allergy status to other drugs, medicaments and biological substances; Z91.040 Latex allergy status
CPT/HCPCS: 99212

== ENCOUNTER 2024-08-01 05:47 | Day surgery (SDC) | payer OTHER ==
[2024-08-01] MEDS ORDERED: Lidocaine HCl 4% Cream 5 GM ONE (15:32)
== END 2024-08-01 23:00 | disposition home or self-care (01) ==
LOC: WOUND 05:47
DX: T81.33XA Disruption of traumatic injury wound repair, initial encounter (principal); E11.621 Type 2 diabetes mellitus with foot ulcer; L97.422 Non-pressure chronic ulcer of left heel and midfoot with fat layer exposed; I50.84 End stage heart failure; Z89.611 Acquired absence of right leg above knee
CPT/HCPCS: A6213; A9270

== ENCOUNTER 2024-08-01 05:54 | Day surgery (SDC) | payer OTHER ==
--- NOTE | 2024-08-01 15:13 | NUR ---
LVAD DRESSING CHANGE ALL SUPPLIES PROVIDED BY PATIENT. OLD DRESSING REMOVED. SMALL AMOUNT OF DRIED LIGHT PERALES DRAINAGE AROUND DRIVE LINE. RED AREA NOTED AROUND THE INSERTION SITE, NO OPEN AREAS NOTED. AREA CLEANED WITH CHLORPREP AND ALLOWED TO DRY. SKIN PREP APPLIED. STERILE SALINE SOAKED SILVADENE DRESSING APPLIED AROUND DRIVE LINE INSERTION SITE. STERILE 4X4s FOLDED AND PLACED UNDER THE DRIVE LINE AND OVER THE TOP OF THE DRIVE LINE. TEGADERM DRESSING APPLIED OVER THE TOP OF THE 4X4S AND THEN TWO TELFA DRESSINGS APPLIED OVER THE TOP OF THE TEGADERM DRESSING. DRIVE LINE ANCHOR REPLACED. STERILE TECHNIQUE MAINTAINED THROUGHTOUT THE PROCEDURE.
== END 2024-08-01 15:13 | disposition home or self-care (01) ==
LOC: ATC 05:54
DX: Z48.01 Encounter for change or removal of surgical wound dressing (principal); I11.0 Hypertensive heart disease with heart failure; I50.9 Heart failure, unspecified; E11.40 Type 2 diabetes mellitus with diabetic neuropathy, unspecified; E78.5 Hyperlipidemia, unspecified; F33.1 Major depressive disorder, recurrent, moderate; I48.0 Paroxysmal atrial fibrillation
CPT/HCPCS: 99211

== ENCOUNTER 2024-08-15 04:00 | Day surgery (SDC) | payer OTHER ==
--- NOTE | 2024-08-15 16:45 | NUR ---
Pt brings all supplies for dressing change. Small amount of light kennedy drainage around the site. Pinpoint open area under drive line of open area. Area surrounding the insertion site is reddened. Area cleansed with chlor prep and allowed to dry. NS soaked silvadene gauze applied around drive line. Sterile 4x4 [address] under the driveline to keep driveline off of the open area. 4x4 gauze applied over the top of the driveline as well. Tegaderm dressing applied over the gauze. Two telfa dressings applied over the top of the tegaderm dressing. Drive line anchor replaced and repositioned slightly higher to keep the drive line away from the pin point open area. Sterile technique maintained throughout the procedure.
== END 2024-08-15 16:20 | disposition home or self-care (01) ==
LOC: ATC 04:00
DX: Z48.01 Encounter for change or removal of surgical wound dressing (principal); I11.0 Hypertensive heart disease with heart failure; I50.9 Heart failure, unspecified; E11.40 Type 2 diabetes mellitus with diabetic neuropathy, unspecified; E78.5 Hyperlipidemia, unspecified; I48.0 Paroxysmal atrial fibrillation; Z79.01 Long term (current) use of anticoagulants; Z79.899 Other long term (current) drug therapy; Z88.8 Allergy status to other drugs, medicaments and biological substances; Z91.040 Latex allergy status
CPT/HCPCS: 99212

== ENCOUNTER 2024-08-15 06:24 | Day surgery (SDC) | payer OTHER ==
[2024-08-15] MEDS ORDERED: Silver Nitr/Potassium Nitrate 1 EA APPL ONE (15:26)
== END 2024-08-15 23:00 | disposition home or self-care (01) ==
LOC: WOUND 06:24
DX: T81.31XA Disruption of external operation (surgical) wound, not elsewhere classified, initial encounter (principal); E11.621 Type 2 diabetes mellitus with foot ulcer; L97.422 Non-pressure chronic ulcer of left heel and midfoot with fat layer exposed; S81.812D Laceration without foreign body, left lower leg, subsequent encounter; X58.XXXD Exposure to other specified factors, subsequent encounter; E11.51 Type 2 diabetes mellitus with diabetic peripheral angiopathy without gangrene; I70.202 Unspecified atherosclerosis of native arteries of extremities, left leg; I50.84 End stage heart failure; Z89.611 Acquired absence of right leg above knee
CPT/HCPCS: A6213; A9270; G0463

== ENCOUNTER 2024-08-22 01:25 | Day surgery (SDC) | payer OTHER | END 2024-08-22 15:22 | disposition home or self-care (01) | LOC: ATC 01:25 | DX: Z48.00 Encounter for change or removal of nonsurgical wound dressing (principal); I11.0 Hypertensive heart disease with heart failure; I50.22 Chronic systolic (congestive) heart failure; E11.40 Type 2 diabetes mellitus with diabetic neuropathy, unspecified; I48.91 Unspecified atrial fibrillation; K21.9 Gastro-esophageal reflux disease without esophagitis; F33.1 Major depressive disorder, recurrent, moderate; E78.5 Hyperlipidemia, unspecified; K76.0 Fatty (change of) liver, not elsewhere classified; Z87.891 Personal history of nicotine dependence; Z79.4 Long term (current) use of insulin; Z79.899 Other long term (current) drug therapy; Z91.040 Latex allergy status; Z88.8 Allergy status to other drugs, medicaments and biological substances; Z89.611 Acquired absence of right leg above knee; Z89.429 Acquired absence of other toe(s), unspecified side | CPT/HCPCS: 99211 ==

== ENCOUNTER 2024-08-22 04:50 | Day surgery (SDC) | payer OTHER ==
[2024-08-22] MEDS ORDERED: Lidocaine HCl 4% Cream 5 GM ONE (14:17)
== END 2024-08-22 23:00 | disposition home or self-care (01) ==
LOC: WOUND 04:50
DX: E11.621 Type 2 diabetes mellitus with foot ulcer (principal); L97.422 Non-pressure chronic ulcer of left heel and midfoot with fat layer exposed; T81.31XA Disruption of external operation (surgical) wound, not elsewhere classified, initial encounter; S81.802D Unspecified open wound, left lower leg, subsequent encounter; S91.109D Unspecified open wound of unspecified toe(s) without damage to nail, subsequent encounter; E11.622 Type 2 diabetes mellitus with other skin ulcer; I70.202 Unspecified atherosclerosis of native arteries of extremities, left leg; I50.84 End stage heart failure; Z89.611 Acquired absence of right leg above knee; X58.XXXD Exposure to other specified factors, subsequent encounter; Y83.8 Other surgical procedures as the cause of abnormal reaction of the patient, or of later complication, without mention of misadventure at the time of the procedure
CPT/HCPCS: A6213; A9270

== ENCOUNTER 2024-08-29 02:08 | Day surgery (SDC) | payer OTHER ==
[2024-08-29] MEDS ORDERED: Lidocaine HCl 4% Cream 5 GM ONE (14:55)
== END 2024-08-29 23:00 | disposition home or self-care (01) ==
LOC: WOUND 02:08
DX: E11.621 Type 2 diabetes mellitus with foot ulcer (principal); L97.422 Non-pressure chronic ulcer of left heel and midfoot with fat layer exposed; T81.31XD Disruption of external operation (surgical) wound, not elsewhere classified, subsequent encounter; S81.812D Laceration without foreign body, left lower leg, subsequent encounter; S91.115D Laceration without foreign body of left lesser toe(s) without damage to nail, subsequent encounter; X58.XXXD Exposure to other specified factors, subsequent encounter; E11.51 Type 2 diabetes mellitus with diabetic peripheral angiopathy without gangrene; I70.202 Unspecified atherosclerosis of native arteries of extremities, left leg; I50.84 End stage heart failure; Z89.611 Acquired absence of right leg above knee
CPT/HCPCS: A6213; A9270; G0463

== ENCOUNTER 2024-08-29 02:17 | Day surgery (SDC) | payer OTHER ==
--- NOTE | 2024-08-29 17:27 | NUR ---
Pt brings all supplies for dressing change. Small amount of light kennedy drainage around the site. Pinpoint open area under drive line of open area. Area surrounding the insertion site is reddened. Area cleansed with chlor prep and allowed to dry. NS soaked silvadene gauze applied around drive line. Sterile 4x4 [address] under the driveline to keep driveline off of the open area. 4x4 gauze applied over the top of the driveline as well. Tegaderm dressing applied over the gauze. Two telfa dressings applied over the top of the tegaderm dressing. Drive line anchor replaced and repositioned slightly higher to keep the drive line away from the pin point open area. Sterile technique maintained throughout the procedure. ENCOURAGED PATIENT TO SEE IF HE CAN GET HIBICLENS AGAIN FROM THE SUPPLY COMPANY IN [place] THAT THAT MAY HELP HIS IRRITATION IN THE DRIVELINE AREA
== END 2024-08-29 16:18 | disposition home or self-care (01) ==
LOC: ATC 02:17
DX: I11.0 Hypertensive heart disease with heart failure (principal); I50.22 Chronic systolic (congestive) heart failure; E11.40 Type 2 diabetes mellitus with diabetic neuropathy, unspecified; E78.5 Hyperlipidemia, unspecified; I48.0 Paroxysmal atrial fibrillation; Z88.8 Allergy status to other drugs, medicaments and biological substances; Z79.4 Long term (current) use of insulin; Z79.899 Other long term (current) drug therapy; K21.9 Gastro-esophageal reflux disease without esophagitis
CPT/HCPCS: 99212

== ENCOUNTER 2024-09-05 04:48 | Day surgery (SDC) | payer OTHER ==
[2024-09-05] MEDS ORDERED: Lidocaine HCl 4% Cream 5 GM ONE (14:22)
[2024-09-05] MEDS ORDERED: Silver Nitr/Potassium Nitrate 1 EA APPL ONE (15:29)
== END 2024-09-05 23:00 ==
LOC: WOUND 04:48
DX: T81.30XA Disruption of wound, unspecified, initial encounter (principal); E11.622 Type 2 diabetes mellitus with other skin ulcer; E11.621 Type 2 diabetes mellitus with foot ulcer; I70.202 Unspecified atherosclerosis of native arteries of extremities, left leg; I50.84 End stage heart failure; Z89.611 Acquired absence of right leg above knee; Y83.8 Other surgical procedures as the cause of abnormal reaction of the patient, or of later complication, without mention of misadventure at the time of the procedure
CPT/HCPCS: A6213; A9270

== ENCOUNTER 2024-09-10 | Day surgery (SDC) | payer OTHER | END 2024-09-10 23:00 | disposition home or self-care (01) | LOC: WOUND | DX: T81.30XD Disruption of wound, unspecified, subsequent encounter (principal); S91.109D Unspecified open wound of unspecified toe(s) without damage to nail, subsequent encounter; E11.622 Type 2 diabetes mellitus with other skin ulcer; E11.621 Type 2 diabetes mellitus with foot ulcer; I70.202 Unspecified atherosclerosis of native arteries of extremities, left leg; I50.84 End stage heart failure; Z89.611 Acquired absence of right leg above knee; X58.XXXD Exposure to other specified factors, subsequent encounter; Y83.8 Other surgical procedures as the cause of abnormal reaction of the patient, or of later complication, without mention of misadventure at the time of the procedure | CPT/HCPCS: A6213; G0463 ==

== ENCOUNTER 2024-09-10 11:46 | Day surgery (SDC) | payer OTHER ==
[2024-09-10 14:50] VITALS: BP 112/87
== END 2024-09-10 15:00 | disposition home or self-care (01) ==
LOC: ATC 11:46
DX: Z48.00 Encounter for change or removal of nonsurgical wound dressing (principal); I11.0 Hypertensive heart disease with heart failure; I50.9 Heart failure, unspecified; E11.40 Type 2 diabetes mellitus with diabetic neuropathy, unspecified; K76.0 Fatty (change of) liver, not elsewhere classified; F33.1 Major depressive disorder, recurrent, moderate; I48.0 Paroxysmal atrial fibrillation; K21.9 Gastro-esophageal reflux disease without esophagitis; Z87.891 Personal history of nicotine dependence; Z79.01 Long term (current) use of anticoagulants; Z79.4 Long term (current) use of insulin; Z79.899 Other long term (current) drug therapy; Z91.040 Latex allergy status; Z88.8 Allergy status to other drugs, medicaments and biological substances; Z99.3 Dependence on wheelchair; Z89.429 Acquired absence of other toe(s), unspecified side; Z89.611 Acquired absence of right leg above knee; Z95.811 Presence of heart assist device
CPT/HCPCS: 99212

== ENCOUNTER 2024-09-20 03:13 | Day surgery (SDC) | payer OTHER ==
--- NOTE | 2024-09-20 16:16 | NUR ---
OLD LVAD DRESSING REMOVED. DRAINAGE NOTED TO SILVER PAD WAS MINIMAL. NICKEL SIZED AMOUNT OF DARK BROWN DRAINAGE NOTED. STERILE TECHNIQUE ESTABLISHED AND MAINTAINED THROUGHOUT PROCEDURE. SKIN CLEANSED WITH CHLORAPREP FOR 30 SECONDS AND ALLOWED TO AIR DRY FOR 30 SECONDS. SALINE SOAKED SILVER PAD PLACED AROUND DRIVELINE INSERTION SITE. SKIN IN THIS ARE RED AND SORE FOR PT. NO OPEN AREAS NOTED BUT AREA BURNED WHEN CLEANSED. SKIN SURROUNDING DRIVELINE INSERTION SITE PREPPED WITH SKIN PREP AND AIR DRIED FOR 30 SECONS. LVAD DRESSING APPLIED. 2 TELFA PADS PLACED OVER THE TOP OF DRESSING. OLD SECUREMENT DEVICE REMOVED USING ALCHOL PREP PAD. SKIN PREP APPLIED TO AREA AND LEFT TO AIR DRY FOR 30 SECONDS. NEW SECUREMENT DEVICE APPLIED. PT REPORTS LINE FEELS GOOD AND NOT TOO TIGHT. PT BROUGHT ALL MATERIALS USED FOR THE PROCEDURE. PT REPORTS HE GOES TO [facility] IN THE NEXT COUPLE OF WEEKS TO HAVE SOMEONE LOOK AT THE SKIN AROUND THE INSERTION SITE IT IS RED AND SORE TO THE PT.
== END 2024-09-20 15:42 | disposition home or self-care (01) ==
LOC: ATC 03:13
DX: I11.0 Hypertensive heart disease with heart failure (principal); I50.9 Heart failure, unspecified; E11.40 Type 2 diabetes mellitus with diabetic neuropathy, unspecified; F33.1 Major depressive disorder, recurrent, moderate; I48.0 Paroxysmal atrial fibrillation; K21.9 Gastro-esophageal reflux disease without esophagitis; Z87.891 Personal history of nicotine dependence; Z79.899 Other long term (current) drug therapy; Z79.4 Long term (current) use of insulin; Z79.01 Long term (current) use of anticoagulants; Z88.8 Allergy status to other drugs, medicaments and biological substances; Z91.040 Latex allergy status; Z89.429 Acquired absence of other toe(s), unspecified side; Z89.611 Acquired absence of right leg above knee
CPT/HCPCS: 99211

== ENCOUNTER 2024-09-20 04:51 | Day surgery (SDC) | payer OTHER | END 2024-09-20 23:00 | disposition home or self-care (01) | LOC: WOUND 04:51 | DX: T81.30XD Disruption of wound, unspecified, subsequent encounter (principal); I70.202 Unspecified atherosclerosis of native arteries of extremities, left leg; E11.622 Type 2 diabetes mellitus with other skin ulcer; I50.84 End stage heart failure; Z89.611 Acquired absence of right leg above knee; Y83.8 Other surgical procedures as the cause of abnormal reaction of the patient, or of later complication, without mention of misadventure at the time of the procedure | CPT/HCPCS: A6213; G0463 ==

== ENCOUNTER 2024-09-27 01:26 | Day surgery (SDC) | payer OTHER ==
--- NOTE | 2024-09-27 15:02 | NUR ---
LVAD DRESSING CHANGE PT PROVIDED ALL SUPPLIES. OLD DRESSING REMOVED. SKIN AROUND LVAD INSERTION SITE IS RED, NO OPEN AREAS NOTED. SMALL AMOUNT OF LIGHT PERALES DRAINAGE CLEANED FROM AROUND THE INSERTION SITE. SITE CLEANED WITH CHLORPREP AND ALLOWED TO DRY. SKIN PREP APPLIED. STERILE SALINE SOAKED SILVADENE DRESSING. STERILE 4X4 FOLDED AND PLACED UNDER THE EDGE OF THE DRIVE LINE TO ELEVATE OFF OF THE SKIN. 4X4 GAUZE PLACED OVER THE TOP OF THE DRIVELINE, THEN TEGADERM DSG AND 3 TELFA DRESSINGS OVER THE TOP PER PT REQUEST. DRIVE LINE ANCHOR REPLACED. AREA CLEANED WITH CHLORPREP AND SKIN PREP APPLIED PRIOR TO NEW DRIVE LINE ANCHOR PLACEMENT. SKIN INTACT UNDER THE ANCHOR. STERILE TECHNIQUE MAINTAINED THROUGHTOUT THE PROCEDURE.
[2024-09-27] MEDS ORDERED: FERSU300 PO (15:31)
== END 2024-09-27 15:02 | disposition home or self-care (01) ==
LOC: ATC 01:26
DX: Z48.01 Encounter for change or removal of surgical wound dressing (principal); I11.0 Hypertensive heart disease with heart failure; I50.9 Heart failure, unspecified; E11.40 Type 2 diabetes mellitus with diabetic neuropathy, unspecified; E78.5 Hyperlipidemia, unspecified; I48.0 Paroxysmal atrial fibrillation; Z79.899 Other long term (current) drug therapy; Z79.4 Long term (current) use of insulin; Z79.01 Long term (current) use of anticoagulants; Z88.8 Allergy status to other drugs, medicaments and biological substances; Z91.040 Latex allergy status
CPT/HCPCS: 99211

== ENCOUNTER 2024-10-03 02:35 | Day surgery (SDC) | payer OTHER ==
[~2024-10-03 02:35] MED LIST changes: +FERSU300 PO
[2024-10-03] MEDS ORDERED: Lidocaine HCl 4% Cream 5 GM ONE (15:13)
== END 2024-10-03 23:00 | disposition home or self-care (01) ==
LOC: WOUND 02:35
DX: T81.30XA Disruption of wound, unspecified, initial encounter (principal); E11.622 Type 2 diabetes mellitus with other skin ulcer; E11.51 Type 2 diabetes mellitus with diabetic peripheral angiopathy without gangrene; I70.202 Unspecified atherosclerosis of native arteries of extremities, left leg; I50.84 End stage heart failure; Z89.611 Acquired absence of right leg above knee; Y83.8 Other surgical procedures as the cause of abnormal reaction of the patient, or of later complication, without mention of misadventure at the time of the procedure
CPT/HCPCS: A6213; A9270

== ENCOUNTER 2024-10-03 02:40 | Day surgery (SDC) | payer OTHER ==
--- NOTE | 2024-10-03 15:29 | NUR ---
NO CALL, NO SHOW
--- NOTE | 2024-10-03 16:13 | NUR ---
LVAD DRSG CHANGE ALL SUPPLIES PROVIDED BY THE PATIENT. STERILE TECHNIQUE MAINTAINED T/O. SECUREMENT DEVICE CHANGED. OLD DRSG REMOVED. FAINT ODOR PRESENT WHEN DRSG REMOVED. MODERATE AMOUNT OF DRAINAGE AROUND INSERTION SITE AND ON THE SILVADENE DRSG. SHOWED THE PATIENT THE DRSG AND STRONGLY ENCOURAGED THAT HE MAKE EVERY EFFORT POSSIBLE TO MAKE IT TO HIS APPT WITH HIS LVAD TEAM ON MONDAY. CLEANSED THOROUGHLY WITH TWO CHLOROPREP SWABS AND ALLOWED TO AIR DRY. STERILE SALINE SOAKED SILVADENE PLACED UNDER THE DRIVELINE AT AND AROUND THE INSERTION SITE. PLACED TWO STERILE 4X4 GAUZE FOLDED OVER THE TOP OF THAT. COVERED WITH WINDOW DRSG AND FOLLOWED BY TWO EXTRA TELFA DRSGS FOR ADDED SECUREMENT. SECURED ALL EDGES.
== END 2024-10-03 16:08 | disposition home or self-care (01) ==
LOC: ATC 02:40
DX: Z48.01 Encounter for change or removal of surgical wound dressing (principal); I11.0 Hypertensive heart disease with heart failure; I50.9 Heart failure, unspecified; E11.40 Type 2 diabetes mellitus with diabetic neuropathy, unspecified; M10.9 Gout, unspecified; E78.5 Hyperlipidemia, unspecified; F33.1 Major depressive disorder, recurrent, moderate; I48.0 Paroxysmal atrial fibrillation; Z79.899 Other long term (current) drug therapy; Z88.8 Allergy status to other drugs, medicaments and biological substances
CPT/HCPCS: 99212

== ENCOUNTER 2024-10-14 01:15 | Day surgery (SDC) | payer OTHER ==
[2024-10-14] MEDS ORDERED: Lidocaine HCl 4% Cream 5 GM ONE (14:36)
[2024-11-04] MEDS ORDERED: FERROUS GLUCON324 M7 (16:30)
[2024-11-04] MEDS ORDERED: SIME80CH (16:32)
[2024-11-04] MEDS ORDERED: Vitamin K100 MCG (16:33)
[2024-11-06] MEDS ORDERED: CLIN150 PO (14:12)
== END 2024-10-14 23:00 | disposition home or self-care (01) ==
LOC: WOUND 01:15
DX: T81.31XD Disruption of external operation (surgical) wound, not elsewhere classified, subsequent encounter (principal); S91.002D Unspecified open wound, left ankle, subsequent encounter; X58.XXXD Exposure to other specified factors, subsequent encounter; I50.84 End stage heart failure; E11.51 Type 2 diabetes mellitus with diabetic peripheral angiopathy without gangrene; I70.202 Unspecified atherosclerosis of native arteries of extremities, left leg; Z89.511 Acquired absence of right leg below knee
CPT/HCPCS: A9270; G0463

== ENCOUNTER 2024-10-14 02:14 | Day surgery (SDC) | payer OTHER ==
[2024-10-14 15:15] VITALS: BP 105/80
--- NOTE | 2024-10-14 17:07 | NUR ---
DRESSING CHANGE OF LVAD PT PROVIDES DRESSING SUPPLIES. OLD DRESSING REMOVED, SKIN AROUND LVAD INSERTION SITE, RED AND INFLAMMED, PT STATES HE HAS INFECTION IN LVAD SITE AND WILL BE GETTING [facility]. DRAINAGE IS BROWN IN COLOR, DRESSING CHANGED PER STERILE TECHNIQUE, CHLORPREP APPLIED, AND DRIED PROPERLY, SKIN PREP APPLIED AT LET DRY, SILVADENE DAMPED WITH STERILE SALINE, TEGADERM APPLIED AND TELFA ALSO PER PTS REQUEST. NEW ANCHOR ALSO APPLIED. PT IS VERY PALE AND FRAIL AND STATES "I AM DYING" ASSISTED PT WITH REPOSITIONING IN CHAIR, PILLOW GIVEN FOR COMFORT
== END 2024-10-14 15:40 | disposition home or self-care (01) ==
LOC: ATC 02:14
DX: Z48.00 Encounter for change or removal of nonsurgical wound dressing (principal); I11.0 Hypertensive heart disease with heart failure; I50.22 Chronic systolic (congestive) heart failure; E11.40 Type 2 diabetes mellitus with diabetic neuropathy, unspecified; I48.0 Paroxysmal atrial fibrillation; E78.5 Hyperlipidemia, unspecified; F33.1 Major depressive disorder, recurrent, moderate; K21.9 Gastro-esophageal reflux disease without esophagitis; Z87.891 Personal history of nicotine dependence; Z79.4 Long term (current) use of insulin; Z79.899 Other long term (current) drug therapy; Z88.8 Allergy status to other drugs, medicaments and biological substances; Z91.040 Latex allergy status; Z89.429 Acquired absence of other toe(s), unspecified side; Z89.611 Acquired absence of right leg above knee
CPT/HCPCS: 99211

== ENCOUNTER 2024-10-25 04:19 | Day surgery (SDC) | payer OTHER | END 2024-10-25 23:00 | disposition home or self-care (01) | LOC: WOUND 04:19 | DX: T81.31XA Disruption of external operation (surgical) wound, not elsewhere classified, initial encounter (principal); S91.002D Unspecified open wound, left ankle, subsequent encounter; X58.XXXD Exposure to other specified factors, subsequent encounter; E11.51 Type 2 diabetes mellitus with diabetic peripheral angiopathy without gangrene; I70.202 Unspecified atherosclerosis of native arteries of extremities, left leg; I50.84 End stage heart failure; Z89.611 Acquired absence of right leg above knee | CPT/HCPCS: A6213 ==

== ENCOUNTER 2024-10-25 04:39 | Day surgery (SDC) | payer OTHER ==
--- NOTE | 2024-10-25 12:08 | NUR ---
LVAD DRSG CHANGE ALL SUPPLIES SUPPLIED BY PATIENT. PATIENT REPORTS THAT HE HAS NOT BEEN IN FOR A DRSG CHANGE IN ALMOST 2 WEEKS AND HIS CARDIAC TEAM AT [facility] STARTED HIM ON ABX FOR AN INFECTION IN HIS LVAD. FURTHER EDUCATION PROVIDED ABOUT THE IMPORTANCE OF MAINTAINING HIS DRSG CHANGE APPTS. SECUREMENT DEVICE CHANGED TODAY. OLD DRSG REMOVED. LARGE AMOUNT OF THICK, BROWN DRAINAGE AROUND THE DRIVELINE AT THE INSERTION SITE. CLEANSED THOROUGHLY WITH 3 CHLOROPREPS. MULTIPLE REDDENED AREAS AROUND THE INSERTION SITE THAT ARE TENDER TO TOUCH. STERILE SALINE SOAKED SILVADENE DRESSING PLACED BENEATH AND AROUND THE DRIVELINE WELL A STERILE 4X4 PLACED UNDER THE DRIVELINE TO RELIEVE SOME PRESSURE. TWO STERILE 4X4 GAUZE FOLDED AND PLACED OVER THE TOP. WINDOW TEGADERM PLACED OVER TOP OF THAT WITH TWO EXTRA TELFA DRSGS PLACED FOR ADDED SECUREMENT. PHOTOS TAKEN OF THE SITE AND PATIENT IS TO EMAIL THEM TO HIS CARDIAC TEAM AT [facility] FOR FURTHER INSTRUCTION
== END 2024-10-25 11:14 | disposition home or self-care (01) ==
LOC: ATC 04:39
DX: I11.0 Hypertensive heart disease with heart failure (principal); I50.23 Acute on chronic systolic (congestive) heart failure; I48.91 Unspecified atrial fibrillation; E11.9 Type 2 diabetes mellitus without complications; K21.9 Gastro-esophageal reflux disease without esophagitis
CPT/HCPCS: 99212

== ENCOUNTER 2024-11-04 13:29 | Emergency (ER) | payer OTHER ==
[~2024-11-04] VITALS: Ht 185.4 cm; Wt 94.8 kg
[2024-11-04] MEDS ORDERED: DOXE25 PO (16:29)
[2024-11-04] MEDS ORDERED: FERROUS GLUCON324 M3 PO (16:30)
[2024-11-04] MEDS ORDERED: OCTREOTIDE50 MCG/10 (16:32)
[2024-11-04] MEDS ORDERED: Cephalexin500 M1 (16:32)
[2024-11-04] MEDS ORDERED: SIME80CH PO (16:32)
[2024-11-04] MEDS ORDERED: SERT50 (16:33)
[2024-11-04] MEDS ORDERED: Rephresh8 GM (16:33)
[2024-11-04] MEDS ORDERED: ENTRESTO 49 MG1 EACH (16:33)
[2024-11-04] MEDS ORDERED: ALLO100 (16:34)
[2024-11-04] MEDS ORDERED: LOPE2C (16:34)
[2024-11-04] MEDS ORDERED: ZINC220 (16:34)
[2024-11-04] MEDS ORDERED: CefTRIAXone Sodium 1,000 MG in NS 100 ML IV ONE (17:50)
[2024-11-04] MEDS ORDERED: CLIN150 PO (18:51)
[2024-11-06] MEDS ORDERED: CLIN150 PO (14:12)
== END 2024-11-04 20:40 | disposition home or self-care (01) ==
LOC: ER 13:29
DX: Z45.09 Encounter for adjustment and management of other cardiac device (principal); Z95.811 Presence of heart assist device; I13.0 Hypertensive heart and chronic kidney disease with heart failure and stage 1 through stage 4 chronic kidney disease, or unspecified chronic kidney disease; E11.22 Type 2 diabetes mellitus with diabetic chronic kidney disease; N18.30 Chronic kidney disease, stage 3 unspecified; I50.20 Unspecified systolic (congestive) heart failure; I48.0 Paroxysmal atrial fibrillation; I25.2 Old myocardial infarction; J44.89 Other specified chronic obstructive pulmonary disease; Z88.8 Allergy status to other drugs, medicaments and biological substances; Z79.4 Long term (current) use of insulin; Z79.01 Long term (current) use of anticoagulants; Z79.899 Other long term (current) drug therapy; Z87.891 Personal history of nicotine dependence
CPT/HCPCS: 96374; 99283-25; J0696

== ENCOUNTER 2024-11-08 04:22 | Day surgery (SDC) | payer OTHER ==
[~2024-11-08 04:22] MED LIST changes: +ALLO100; +CLIN150 PO; +Cephalexin500 M1; +DOXE25 PO; +ENTRESTO 49 MG1 EACH; +FERROUS GLUCON324 M7; +LOPE2C; +OCTREOTIDE50 MCG/10; +Rephresh8 GM; +SERT50; +SIME80CH; +Vitamin K100 MCG; +ZINC220
--- NOTE | 2024-11-08 17:59 | NUR ---
LVAD DRESSING CHANGE PT ARRIVES TO ROOM VIA ELECTRIC SCOOTER. ALL SUPPLIES PROVIDED BY PT. PT STATES "I WAS IN THE ER A COUPLE DAYS AGO AND THEY PUT ME ON SOME DIFFERENT ANTIBIOTICS". DRESSING REMOVED WITH SCANT BROWN COLORED DRAINAGE NOTED. PINPOINT RED OPEN AREAS POSTERIOR AND LATERAL TO THE DRIVELINE. PT REPORTS SOME STINGING WITH THE USE OF CHLORPREP AROUND THE SITE. SILVADENE DRESSING SATURATED WITH SALINE AND PLACED UNDER THE DRIVELINE. WINDOW DRESSING AND TELFA DRESSINGS PLACED OVER THE TOP. NEW SECUREMENT ANCHOR PLACED PER PT'S REQUEST. PT IS VERY HELPFUL AND INTERACTIVE DURING THE VISIT. STATES THAT HE IS FEELING OVERWHELMED WITH MANAGING HIS MEDICAL CONDITIONS WELL HIS SPOUSE AND THAT HE IS GETTING SOME HELP WITH POTENTIAL PLACEMENT.
== END 2024-11-08 14:58 | disposition home or self-care (01) ==
LOC: ATC 04:22
DX: Z48.01 Encounter for change or removal of surgical wound dressing (principal); I42.9 Cardiomyopathy, unspecified; I11.0 Hypertensive heart disease with heart failure; I50.23 Acute on chronic systolic (congestive) heart failure; E11.40 Type 2 diabetes mellitus with diabetic neuropathy, unspecified; E78.5 Hyperlipidemia, unspecified; I48.0 Paroxysmal atrial fibrillation
CPT/HCPCS: 99212

== ENCOUNTER 2024-11-13 11:07 | Inpatient (IN) | payer OTHER ==
[~2024-11-13] VITALS: Ht 185.4 cm; Wt 87.0 kg
[~2024-11-13 11:07] MED LIST changes: +FERROUS GLUCON324 M3 PO; -FERROUS GLUCON324 M7; -SIME80CH; +SIME80CH PO; -Vitamin K100 MCG
[2024-11-13 12:27] LABS: BASOPHILS ABSOLUTE AUTO 0.02 K/mm3 (0.00-0.23); BASOPHILS PERCENT AUTO 0 % (0-2); EOSINOPHILS ABSOLUTE AUTO 0.23 K/mm3 (0.00-0.68); EOSINOPHILS PERCENT AUTO 1 % (0-6); Hematocrit 34.1 % (37.0-53.0); Hemoglobin 11.4 g/dL (13.5-17.5); IMMATURE GRAN PERCENT AUTO 1 % (0-1); LYMPHOCYTES ABSOLUTE AUTO 0.82 K/mm3 (0.84-5.20); LYMPHOCYTES PERCENT AUTO 5 % (21-46); MONOCYTES ABSOLUTE AUTO 0.57 K/mm3 (0.16-1.47); MONOCYTES PERCENT AUTO 3 % (4-13); Mean Corpuscular HGB 31.7 pg (26.0-34.0); Mean Corpuscular HGB Conc 33.4 g/dL (31.5-36.5); Mean Corpuscular Volume 95 fL (80-100); NEUTROPHILS ABSOLUTE AUTO 15.75 K/mm3 (1.96-9.15); NEUTROPHILS PERCENT AUTO 90 % (41-73); Platelet Count 264 K/mm3 (150-400); RDW Coefficient Variation 17.7 % (11.7-14.2); White Blood Cell Count 17.49 K/mm3 (4.00-11.30)
[2024-11-13 12:42] LABS: International Normalized Ratio 2.84; Prothrombin Time Results 28.1 Sec (9.7-11.5)
[2024-11-13 12:58] LABS: Albumin, Blood 1.5 g/dL (3.4-5.0); Albumin/Globulin Ratio 0.3 (0.8-1.8); Bilirubin, Total 1.6 mg/dL (0.1-1.0); Bun/Creatinine Ratio 20.1 (12.0-20.0); Calcium, Blood 7.5 mg/dL (8.5-10.1); Creatinine, Blood 0.65 mg/dL (0.60-1.20); Globulin, Blood 4.3 g/dL (2.2-4.0); Potassium, Blood 3.9 mmol/L (3.5-5.5); Total Protein, Blood 5.8 g/dL (6.4-8.2)
[2024-11-13] MEDS ORDERED: CefTRIAXone Sodium 1,000 MG in NS 100 ML IV ONE (13:35)
[2024-11-13] MEDS ORDERED: Doxycycline Hyclate 100 MG in Dextrose 5% 250 ML IV ONE (13:35)
[2024-11-13] MEDS ORDERED: Aspirin 325 MG Tab PO ONE (17:00)
[2024-11-13] MEDS ORDERED: Furosemide 10 MG/ML 4ML Vial IV SCH (17:00)
[2024-11-13 18:28] VITALS: BP 110/90
[2024-11-13 18:29] VITALS: BP 123/80
[2024-11-13] MEDS ORDERED: Spironolactone 50 MG Tab PO PRN (18:50)
[2024-11-13] MEDS ORDERED: Loperamide HCl 2 MG Cap PO PRN (18:50)
[2024-11-13] MEDS ORDERED: Albuterol HFA200 ACT/6.7 GM INH INH PRN (19:00)
[2024-11-13] MEDS ORDERED: Colchicine 0.6 MG TAB PO SCH (19:00)
[2024-11-13] MEDS ORDERED: Spironolactone 25 MG Tab PO PRN (19:05)
--- NOTE | 2024-11-13 19:05 | NUR ---
Admit note. Pt admitted from the ED to PCU2. Pt was oriented to the room and call light system. LVAD batteries are currently plugged in and charging. Batteries checked on admission. Med rec was completed with Pt. was notified of meds needed. IV lasix was given, Pt has urinal in place. Pt knows that a UA needs to be sent. Pt is able to make needs known, call light is within reach.
[2024-11-13 20:46] VITALS: BP 103/79
[2024-11-13] MEDS ORDERED: Lactobacil 2-S.Thermo-Bifido 1 1 Cap PO SCH (21:00)
[2024-11-13] MEDS ORDERED: Gabapentin 300 MG Cap PO SCH (21:00)
[2024-11-13] MEDS ORDERED: Doxepin HCL 25 MG CAP PO SCH (21:00)
[2024-11-13] MEDS ORDERED: Insulin Human Lispro 100 Units/ML 3ML Syringe SC SCH (21:00)
[2024-11-13 22:27] LABS: Source, Urine Clean Catch
[2024-11-13 22:39] LABS: Bilirubin, Urine Neg (Neg); Blood, Urine Neg (Neg); Glucose Qualitative, Urine Neg (Neg); Ketones, Urine 3+ (Neg); Leukocyte Esterase, Urine Neg (Neg); Nitrite, Urine Neg (Neg); Protein, Urine Neg (Neg); Specific Gravity, Urine 1.015 (1.003-1.022); Urobilinogen, Urine NORM (Normal)
[2024-11-13 22:56] LABS: Appearance, Urine Clear (Clear); Color, Urine Yellow (P-Yellow)
[2024-11-14] VITALS (7 sets, daily range): BP systolic 96–124; BP diastolic 66–86
--- NOTE | 2024-11-14 04:30 | NUR ---
SHIFT SUMMARY NEURO STATUS IMPROVING. PT ABLE TO LIFT LEFT ARM FROM THE SHOULDER, BEND AT THE ELBOW AND SQUEEZE HAND, BUT IS STILL WEAKER THAN RIGHT SIDE. PT ABLE TO WIGGLE TOES AND BEND THEIR KNEE. PT TRACKS WITH EYES AND FEELS SENSATION ON BOTH SIDES OF THEIR FACE. BASELINE LEFT SIDED FACIAL DROOP AND MUMBLED SPEECH PRESENT. LVAD CHARGERS AT BEDSIDE
[2024-11-14 04:49] LABS: BASOPHILS ABSOLUTE AUTO 0.01 K/mm3 (0.00-0.23); BASOPHILS PERCENT AUTO 0 % (0-2); EOSINOPHILS ABSOLUTE AUTO 0.22 K/mm3 (0.00-0.68); EOSINOPHILS PERCENT AUTO 2 % (0-6); Hematocrit 26.7 % (37.0-53.0); Hemoglobin 9.1 g/dL (13.5-17.5); IMMATURE GRAN ABSOLUTE AUTO 0.05 K/mm3 (0.00-0.10); IMMATURE GRAN PERCENT AUTO 0 % (0-1); LYMPHOCYTES ABSOLUTE AUTO 1.05 K/mm3 (0.84-5.20); LYMPHOCYTES PERCENT AUTO 8 % (21-46); MONOCYTES ABSOLUTE AUTO 0.45 K/mm3 (0.16-1.47); MONOCYTES PERCENT AUTO 4 % (4-13); Mean Corpuscular HGB 31.7 pg (26.0-34.0); Mean Corpuscular HGB Conc 34.1 g/dL (31.5-36.5); Mean Corpuscular Volume 93 fL (80-100); Mean Platelet Volume 9.7 fL (9.1-12.4); NEUTROPHILS ABSOLUTE AUTO 10.65 K/mm3 (1.96-9.15); NEUTROPHILS PERCENT AUTO 86 % (41-73); Platelet Count 215 K/mm3 (150-400); RDW Coefficient Variation 17.5 % (11.7-14.2); RDW Standard Deviation 58.7 fL (35.1-46.3); Red Blood Cell Count 2.87 M/mm3 (4.30-5.90); White Blood Cell Count 12.43 K/mm3 (4.00-11.30)
[2024-11-14 05:02] LABS: International Normalized Ratio 2.36; Prothrombin Time Results 23.7 Sec (9.7-11.5)
--- NOTE | 2024-11-14 05:37 | NUR ---
SPOKE WITH POA PER POA PT HAS BEEN ESSENTIALLY BEDBOUND AND INTERMITTENTLY SOMNOLENT WITH LEFT ARM FLACCID SINCE 11/09/24. PT WAS BEING TREATED FOR THEIR LVAD LINE DRIVE INFECTION. PT WAS HALLUCINATING AND STILL MANAGING THEIR OWN MEDS. POA CONCERNED PT MAY HAVE TAKEN THEIR OLD LITHIUM PRESCRIPTION. POA WOULD LIKE PT TO CONSIDER ASSISTED LIVING UPON DISCHARGE.
[2024-11-14 05:59] LABS: LDL/HDL RATIO 2.9; Very Low Density Lipoprot Chol 20 mg/dL (6-32)
[2024-11-14 06:00] LABS: Alanine Aminotransfer (ALT/SGP 27 U/L (12-78); Albumin, Blood 1.2 g/dL (3.4-5.0); Albumin/Globulin Ratio 0.3 (0.8-1.8); Alk Phos 243 U/L (50-136); Anion Gap 8 mmol/L (3-11); Aspartate Aminotrans (AST/SGOT 37 U/L (12-37); Bilirubin, Total 1.2 mg/dL (0.1-1.0); Blood Urea Nitrogen 10 mg/dL (8-24); Bun/Creatinine Ratio 18.8 (12.0-20.0); CO2, Blood 31 mmol/L (21-32); Calcium, Blood 6.8 mg/dL (8.5-10.1); Chloride, Blood 102 mmol/L (98-108); Cholesterol 90 mg/dL (50-200); Creatinine, Blood 0.53 mg/dL (0.60-1.20); Globulin, Blood 3.5 g/dL (2.2-4.0); Glomerular Filtration Rate 113 (60-); Glucose, Blood 269 mg/dL (70-99); HDL Cholesterol 18 mg/dL (>39); Low Density Lipoprotein Chol 52 mg/dL (0-110); Potassium, Blood 3.5 mmol/L (3.5-5.5); Sodium, Blood 137 mmol/L (136-145); Total Protein, Blood 4.7 g/dL (6.4-8.2); Triglycerides 101 mg/dL (30-160)
[2024-11-14] MEDS ORDERED: Menthol/Zinc Oxide Ointment 1 APPLIC/113 GM Tube TOP PRN (07:15)
[2024-11-14] MEDS ORDERED: Omeprazole 20 MG CapCR PO SCH (07:30)
[2024-11-14] MEDS ORDERED: Aspirin 81 MG Chew PO SCH (09:00)
[2024-11-14] MEDS ORDERED: Sertraline HCl 50 MG Tab PO SCH (09:00)
[2024-11-14] MEDS ORDERED: Insulin Glargine-Yfgn 100 Unit/mL 3 ML SYR SC SCH (09:00)
[2024-11-14] MEDS ORDERED: Doxycycline Hyclate 100 MG in Dextrose 5% 250 ML IV SCH (09:00)
[2024-11-14] MEDS ORDERED: Metoprolol Succinate 25 MG TABCR PO SCH (09:00)
[2024-11-14] MEDS ORDERED: Ezetimibe 10 MG Tab PO SCH (09:00)
[2024-11-14] MEDS ORDERED: Tamsulosin HCl 0.4 MG Cap PO SCH (09:00)
[2024-11-14] MEDS ORDERED: Sacubitril/Valsartan 49 MG/51 MG Tab PO SCH (09:00)
[2024-11-14] MEDS ORDERED: Doxycycline Hyclate 100 MG TAB PO SCH (09:00)
--- NOTE | 2024-11-14 10:00 | NUR ---
AM NOTE: PATIENT ALERT AND ORIENTED X4. SPEECH MUMBLED AND LEFT FACIAL DROOP NOTED IN MOUTH AND LEFT EYELID. PERRLA. LEFT SIDE WEAKNESS. PATIENT ABLE TO SLIGHTLY LIFT LEFT ARM AT SHOULDER, BEND ELBOW AND MAKE FIST. LEFT LEG LIFT WITH DRIFT TOWARDS BED AFTER 5 SECONDS. WIGGLING LEFT TOES. LIMITED ROM ON LEFT SIDE. OVERALL WEAKNESS/DECONDITIONING. RIGHT AKA. RIGHT ARM STRENGTH INTACK. PATIENT ABLE TO HELP WITH TURNS USING RIGHT ARM AND FEED SELF/USE PHONE AND TABLET. BASELINE NEUROPATHY. TELE SHOWING SR WITH HR 70-80'S. DENIES CHEST PAIN/PRESSURE/PALPITATIONS. SBP 100-120'S. LVAD IN PLACE. DRESSING CHANGED USING STERILE TECHNIQUE. BATTERIES CHANGED THIS AM WITH MD PRESENT. PICTURE OF LVAD SITE IN PAPER CHART. SCATTERED BRUISING. IV ABX INFUSED. WEARING OXY MASK UPON SHIFT START. TRANSITIONED TO 2L NASAL CANNULA SATING LOW 90'S. PATIENT STATES HE WOULD REFUSE A CPAP IF ONE WAS ORDERED. LUNG SOUNDS CLEAR AND DIM IN BASES. OCCASIONAL MOIST/NONPRODUCTIVE COUGH. EVEN AND UNLABORED RESPIRTATIONS. BOWEL TONES PRESENT IN ALL FOUR QUADRANTS. SPEECH THERAPY ASSESSMENT THIS AM. ACHS BLOOD SUGARS. DENIES ABDOMINAL PAIN/NAUSEA. USING URINAL WITH ASSISTANCE. ATTENDS IN PLACE. COCCYX RED WITH OLD PRESSURE WOUND. BLANCHABLE. SEE CHART PHOTOS. LEFT POSTERIOR HIP SKIN EXCORIATED AND RED, SEE CHART PHOTOS. PATIENT REFUSING AM LONG ACTING INSULIN. DEXCOM TO LEFT UPPER ARM. BED BATH THIS AM WITH DRESSING CHANGES AND SKIN CHECK. PT/OT TO BEDSIDE POST BED BATH. CALL LIGHT IN REACH. PATIENT WATCHING PERSONAL TABLET AT THIS TIME.
--- NOTE | 2024-11-14 13:34 | NUR ---
Upon receiving a referral for spiritual care, I visited the patient. He tells me about his fear about not going to [facility], and the dream that he had that haunts him about this issue. We talked about his spiritual journey, his current belief system and explored avenues toward peace regarding dying and the afterlife. He stated that the Bible is the authority on this subject and so I recited several scriptures connected to conversion, things to consider about making peace with God and what steps to take moving forward in terms of his spiritual life. I provided theraeputic listening, spiritual guidance and prayer. Patient responded well and voiced that he felt greater peace. I will continue to remain available to patient and family.
[2024-11-14] MEDS ORDERED: CefTRIAXone Sodium 1,000 MG in NS 100 ML IV SCH ×2 (15:00→17:00)
[2024-11-14] MEDS ORDERED: Insulin Human Lispro 100 Units/ML 3ML Syringe SC SCH (15:00)
--- NOTE | 2024-11-14 17:58 | NUR ---
SHIFT SUMMARY: NO ACUTE CHANGES. CONTINUES TO ANSWER ALL ORIENTING QUESTIONS CORRECTLY. OCCASIONALLY TALKING TO SELF IN ROOM AND STATES "IM JUST CONFUSED" WHEN ASKED BY THIS RN IF HE NEEDS ANYTHING. PATIENT ABLE TO VOICE NEEDS. OCCASIONAL RANDOM COMMENTS. PATIENT CONTINUES TO HAVE LEFT SIDED WEAKNESS. Q2 TURNS AND NEEDED. PT/OT ASSESSMENT TODAY. TELE CONTINUES TO SHOW SR. LVAD IN PLACE, BATTERIES CHARGED. LVAD DRESSING CHANGED BY THIS RN AND PICTURE IN CHART. PICTURE SHOWN TO DR. WEBSTER. SBP 90-120'S. DENIES CHEST PAIN/PRESSURE/PALPITATIONS. IV ABX INFUSED. ON ROOM AIR -1L WHEN SLEEPING. DENIES SOB. OCCASIONAL COUGH. LUNG SOUNDS CONTINUE TO SOUND CLEAR AND DIM. SPEECH THERAPY ASSESSMENT THIS SHIFT. ADAPTIVE SILVERWARE ORDERS IN PLACE. NEEDING HELP SETTING UP TRAY. TOLERATING PO DIET. CONTINUES TO DENY ABDOMINAL PAIN/NAUSEA. BOWEL MOVEMENT VIA BEDPAN. USING URINAL WITH ASSISTANCE. THIS RN UPDATED POA TODAY VIA PHONE. PATIENT USING PERSONAL TABLET TO WATCH TV AND CELLPHONE THROUGHOUT SHIFT. CALL LIGHT IN REACH. DENIES NEEDS AT THIS TIME.
[2024-11-14] MEDS ORDERED: Torsemide 10 MG TAB PO SCH (21:00)
[2024-11-15 04:05] LABS: BASOPHILS ABSOLUTE AUTO 0.04 K/mm3 (0.00-0.23); BASOPHILS PERCENT AUTO 0 % (0-2); EOSINOPHILS ABSOLUTE AUTO 0.37 K/mm3 (0.00-0.68); EOSINOPHILS PERCENT AUTO 3 % (0-6); Hematocrit 27.7 % (37.0-53.0); Hemoglobin 9.2 g/dL (13.5-17.5); IMMATURE GRAN ABSOLUTE AUTO 0.04 K/mm3 (0.00-0.10); IMMATURE GRAN PERCENT AUTO 0 % (0-1); LYMPHOCYTES ABSOLUTE AUTO 1.26 K/mm3 (0.84-5.20); LYMPHOCYTES PERCENT AUTO 12 % (21-46); MONOCYTES ABSOLUTE AUTO 0.61 K/mm3 (0.16-1.47); MONOCYTES PERCENT AUTO 6 % (4-13); Mean Corpuscular HGB 31.2 pg (26.0-34.0); Mean Corpuscular HGB Conc 33.2 g/dL (31.5-36.5); Mean Corpuscular Volume 94 fL (80-100); Mean Platelet Volume 9.8 fL (9.1-12.4); NEUTROPHILS PERCENT AUTO 79 % (41-73); Platelet Count 207 K/mm3 (150-400); RDW Coefficient Variation 16.9 % (11.7-14.2); RDW Standard Deviation 57.5 fL (35.1-46.3); Red Blood Cell Count 2.95 M/mm3 (4.30-5.90); White Blood Cell Count 10.92 K/mm3 (4.00-11.30)
[2024-11-15 04:18] LABS: International Normalized Ratio 1.89; Prothrombin Time Results 19.3 Sec (9.7-11.5)
--- NOTE | 2024-11-15 04:29 | NUR ---
SHIFT SUMMARY. SHIFT HAS BEEN MOSTLY UNREMARKABLE. PT HAS BEEN ABLE TO REST COMFORTABLY THROUGHOUT MUCH OF SHIFT. ABLE TO ANSWER ORIENTATION QUESTIONS APPROPRIATELY AT SHIFT ONSET ALTHOUGH HAS CONSISTENTLY REPORTED SPORADIC HALLUCINATIONS AND AT TIMES HAS VERY SCATTERED THOUGHTS WITH SOME FIXATION ON TABLET/PHONE. THIS MORNING, WAS INCONTINENT OF URINE AND ON BEING CHANGED WAS ABLE TO TELL ME HIS NAME/ BUT REFUSED TO ANSWER FURTHER QUESTIONS. VERY SOMNOLENT THIS MORNING. VITALS STABLE, MOST RECENT MAP >90. MAINTAINS ADEQUATE SATURATION ON ROOM AIR WHILE AWAKE. WHILE SLEEPING, PT DESATURATES AT TIMES FOR BRIEF PERIODS BEFORE COMING BACK UP >90%. PT WAS WEARING OXYGEN FOR FEW HOURS THIS MORNING BEFORE TAKING IT OFF AND REFUSING TO PUT OXYGEN BACK ON. OTHERWISE SHIFT HAS BEEN UNREMARKABLE. BED LOCKED IN LOWEST POSITION. CALL LIGHT LEFT WITHIN REACH. CONTINUING TO MONITOR.
[2024-11-15 04:50] LABS: Bun/Creatinine Ratio 15.3 (12.0-20.0); Calcium, Blood 6.4 mg/dL (8.5-10.1); Creatinine, Blood 0.46 mg/dL (0.60-1.20); Potassium, Blood 3.1 mmol/L (3.5-5.5)
[2024-11-15] MEDS ORDERED: Potassium Chloride 20 MEQ TabCR PO SCH (08:00)
--- NOTE | 2024-11-15 09:23 | NUR ---
[facility] TEAM PHONE NUMBERS TEAM: [phone] LVAD:
[2024-11-15] MEDS ORDERED: Potassium Chl 20MEQ/Water100ML 100 ML IV STA (09:43)
[2024-11-15 10:41] LABS: Phosphorus, Blood 1.3 mg/dL (2.5-4.9)
[2024-11-15 10:43] LABS: Magnesium, Blood 1.1 mg/dL (1.6-2.4)
[2024-11-15] MEDS ORDERED: Magnesium Sul 4 GM/Water100 ML 100 ML IV ONE (11:00)
--- NOTE | 2024-11-15 11:03 | NUR ---
UPDATE UPON CARE ASSUMPTION, PT A&OX4. SP02>90% ON RA. MAP FOUND VIA MANUAL CUFF AND DOPPLER. PT ABLE TO SWALLOW PILLS WHOLE. AFTER SWALLOWING PILLS, PT TOOK DRINK OF WATER AND COUGHS/VOMITS UP WATER. POST COUGH, LUNG SOUNDS REMAIN THE SAME, COUGH SOUNDS WET. PT STATES NEED TO HAVE BM. DURING THIS COVERSATION, PT LOOSES CONCIOUSNESS, UNRESPONSIVE. LVAD BATTERY PACK ALARMS LOUD CONSISTANT ALARM. ASPNET DEVELOPER IN ROOM. TELEMETRY REPORTS 30 SEC RUN OF VTACH, CONVERTS TO JUNCTIONAL, THEN NSR. MD NOTIFIED. MD WEBSTER AND MD SOUTH IN ROOM TO ASSESS. MD'S RECOMMENDED XFER TO [facility]. PT REFUSES, STATES, 'LETS WAIT AND SEE 4 HOURS IF ANYTHING HAPPENS'. PER PT REQUEST, WILL REASSESS PLAN AROUND LUNCHTIME. CURRENTLY IN ROOM TALKING TO PALLIATIVE CARE. NEW IV PLACED, LABS DRAW. ABX INFUSING PER EMAR.
[2024-11-15] MEDS ORDERED: NS 250 ML IV PRN (11:05)
[2024-11-15 11:27] LABS: Stool Occult Blood Guaiac 1 Pos (Neg)
[2024-11-15] MEDS ORDERED: Sodium Phosphate 30 MM in Dextrose 5% 500 ML IV STA (13:59)
--- NOTE | 2024-11-15 17:19 | NUR ---
PALLIATIVE CARE VISIT: MET WITH PT THIS MORNING AT 1030 AM. DISCUSSED GOALS OF CARE. PT IS ABLE TO PARTICIPATE IN MEANINGFUL DISCUSSION. PT STATES HIS GOAL IS TO GET WELL ENOUGH TO GO HOME AND BE WITH HIS . HE STATES "I NEED TO MAKE SURE SHE IS TAKEN CARE OF." PT STATES HE DOES NOT WANT TO GO TO [facility]. DISCUSSED RISKS OF DECLINING TRANSFER TO [facility]. PT AGAIN REPEATS LAST TIME I WENT TO [facility] I WAS THERE FOR 9 MONTHS AND I WON'T LET THAT HAPPEN AGAIN. PT STATES "I HAVE AN AGREEMENT WITH DR. WEBSTER TO COME BACK IN 4 HOURS AND IF NOTHING HAS HAPPENED TO MY HEART THEN I WANT TO STAY." PT REQUESTS INFORMATION ABOUT HOSPICE CARE IN THE HOME. PT EDUCATED ON WHAT BENEFITS COME WITH HOSPICE. DISCUSS GOAL OF CARE WITH HOSPICE IS COMFORT AND TO REMAIN HOME UNTIL END OF LIFE. PT INFORMED HE CAN CONTINUE TO TAKE LIFE SAVING MEDICATIONS IF HE SO DESIRED. PT STATED HE IS INTERESTED IN HOSPICE. DISCUSSED THE DIFFERENT AGENCIES AVAILABLE IN THE COMMUNITY. PT STATES HE IS WITH [facility] SO [facility]. OFFERED TO CALL HIS EMERGENCY CONTACT RAZA TO DISCUSS FURTHER NEEDS AND CHECK ON HIS . PT AGREEABLE TO ME CALLING RAZA. SPOKE TO RAZA ON THE PHONE. RAZA STATES HE IS HAVING A FAMILY MEMBER STAY WITH DEMIAN (IRINA'S ). SHE IS WELL TAKEN CARE OF AT THIS TIME. GAVE UPDATE ON JOAN DECISION TO STAY HERE AND DECLINED TO TRANSFER TO [facility]. RAZA STATED HE WOULD PREFER IF IRINA WENT TO [facility] AND HE WOULD ENSURE DEMIAN WAS TAKEN CARE OF LONG NEEDED FOR IRINA TO BE AT [facility]. RAZA ALSO REPORTED HE HAS COMPLETED AND TURNED IN APPLICATIONS FOR MEDICAID AND HAS BEEN SEARCHING FOR ASSISTED LIVING FOR IRINA AND MEMORY CARE FOR DEMIAN UP [place] SO THEY WILL BOTH BE CLOSER TO HIM. RAZA HAS POA DOCUMENTATION AND HE IS NAMED POA. HAD HIM EMAIL POA PAPERWORK TO THIS RN. PRINTED AND PLACED ON CHART. RAZA CALLED BACK SHORTLY AFTER AND STATED IRINA WANTED TO GO TO [facility] AFTER SPEAKING TO HIM. DISCUSSED WITH DR. WEBSTER AND PT. PT REPEATED AGAIN "NO, I DON'T WANT TO GO TO [facility]". "I WANT TO JUST GO HOME ON HOSPICE, NOW THAT I KNOW WHAT HOSPICE IS". PT ALSO CONFIRMED HE STILL WANTS RAZA TO BE HIS POA AND NOT HIS SON DAYA. SPOKE TO IRINA ABOUT COMPLETING AND ADVANCE DIRECTIVE. PT STATES HE INTERESTED BUT HE WANTS TO COMPLETE IT TOMORROW. RECEIVED CALL BACK
--- NOTE | 2024-11-15 17:55 | NUR ---
SHIFT SUMMARY NO ACUTE CHANGES SINCE LAST NOTE. PT A&OX4, HAD CONVERSATIONS WITH MD AND PALLIATIVE, SEE NOTES. SP02>90% ON RA. TELEMETRY SHOWS NSR, HR 100'S. LVAD BATTERIES CHANGES APPROX 1500. USED URINAL TO VOID. BM X2 THSI SHIFT, INCONTINENT. C/D ATTENDS IN PLACE. STOOL SAMPLE SENT TO LAB. ELECTROLYTES REPLACED PER EMAR. POWER GLIDE AND NEW PERIPHRIAL INSERTED. REPOSITIONED Q2H. ABX INFUSED PER EMAR. EATING DINNER IN ROOM WATCHING [employer] ON TABLET. CALL LIGHT IN REACH.
[2024-11-15] MEDS ORDERED: Warfarin Sodium 1 MG Tab PO ONE (18:00)
[2024-11-15 20:18] LABS: Hematocrit 25.5 % (37.0-53.0); Hemoglobin 8.5 g/dL (13.5-17.5)
[2024-11-15] MEDS ORDERED: Melatonin 5 MG Tablet PO SCH (21:00)
[2024-11-16 05:36] LABS: International Normalized Ratio 1.62; Prothrombin Time Results 16.7 Sec (9.7-11.5)
[2024-11-16 05:47] LABS: Magnesium, Blood 1.5 mg/dL (1.6-2.4); Phosphorus, Blood 2.4 mg/dL (2.5-4.9)
--- NOTE | 2024-11-16 05:49 | NUR ---
SHIFT SUMMARY PATIENT ALERT, ORIENTED x3-4, FORGETFUL AT TIMES. PATIENT REFUSING CARE AT TIMES. REFUSED MORNING VITALS AND BEGAN REFUSING OXYGEN AND O2 SAT MONITORING AROUND 0500. PATIENT STATING "JUST TURN IT OFF, I WANT TO FUCKING SLEEP", "I DON'T WEAR OXYGEN AT HOME, I'M NOT MONITORING IT". PATIENT EDUCATED ON IMPORTANCE OF WEARING OXYGEN D/T DESATTING WHILE SLEEPING. PATIENT CONTINUING TO REFUSE MONITORING. TELE READING SR. MAPS >65. INCONTINENT OF BOWEL, ATTEMPING TO USE URINAL. RED STOOLS DURING THE NIGHT. TOLERATING PO. NO OTHER CHANGES DURING THE NIGHT, WILL REPORT TO DAY SHIFT RN.
[2024-11-16] MEDS ORDERED: Magnesium Sulf 2 GM/Water 50ML 50 ML IV ONE (06:05)
[2024-11-16 06:06] LABS: BASOPHILS ABSOLUTE AUTO 0.05 K/mm3 (0.00-0.23); BASOPHILS PERCENT AUTO 0 % (0-2); EOSINOPHILS ABSOLUTE AUTO 0.38 K/mm3 (0.00-0.68); EOSINOPHILS PERCENT AUTO 3 % (0-6); Hematocrit 26.8 % (37.0-53.0); IMMATURE GRAN ABSOLUTE AUTO 0.04 K/mm3 (0.00-0.10); IMMATURE GRAN PERCENT AUTO 0 % (0-1); LYMPHOCYTES ABSOLUTE AUTO 1.12 K/mm3 (0.84-5.20); LYMPHOCYTES PERCENT AUTO 10 % (21-46); MONOCYTES ABSOLUTE AUTO 0.67 K/mm3 (0.16-1.47); MONOCYTES PERCENT AUTO 6 % (4-13); Mean Corpuscular HGB 31.8 pg (26.0-34.0); Mean Corpuscular HGB Conc 33.6 g/dL (31.5-36.5); Mean Corpuscular Volume 95 fL (80-100); Mean Platelet Volume 10.5 fL (9.1-12.4); NEUTROPHILS ABSOLUTE AUTO 9.15 K/mm3 (1.96-9.15); NEUTROPHILS PERCENT AUTO 80 % (41-73); Platelet Count 206 K/mm3 (150-400); Red Blood Cell Count 2.83 M/mm3 (4.30-5.90); White Blood Cell Count 11.41 K/mm3 (4.00-11.30)
[2024-11-16 06:11] LABS: Bun/Creatinine Ratio 11.9 (12.0-20.0); Calcium, Blood 6.4 mg/dL (8.5-10.1); Creatinine, Blood 0.59 mg/dL (0.60-1.20); Potassium, Blood 3.2 mmol/L (3.5-5.5)
[2024-11-16] MEDS ORDERED: Potassium Chl 20MEQ/Water100ML 100 ML IV STA (08:54)
[2024-11-16] MEDS ORDERED: Spironolactone 25 MG Tab PO SCH (12:00)
[2024-11-16] MEDS ORDERED: Loperamide HCL 1 MG/7.5 ML UDC PO PRN (15:15)
--- NOTE | 2024-11-16 16:34 | NUR ---
Pt alert, oriented. He has decided to go home with hospice, and is adamant it be as soon as possible. He was initially wanting to wait for [facility] hospice, but has since changed his mind, wanting the first available hospice agency which is [facility], who is available on Monday. The patient's nephew Joshua is his POA but that only applies if the patient is incapacitated which he is currently not. According to the patient and Joshua, they are working to get pt's Liza placed in memory care due to her advanced dementia. Joshua is meeting with Liza's medicaid telephonic nurse case manager on monday for an evaluation of Liza and to complete paperwork. Joshua states he thinks they are getting close to getting her placed. However, as previously stated, the patient insists on returning home with Liza and between them they have CG assistance of approx 8 hrs a day, paid for by the [place]. There is concern that isn't enough, but upon checking with Dr. Barger and Dr. Yu, they state the pt is able to make his needs and wants known, and give orders to d/c on hospice as requested by patient. Discussed with CM and CM directory, they request moving forward with hospice discharge as we discussed. Spoke at length with pt's nephew Joshua. He v/u and will focus on continuing to look for placement for pt's Liza. hospice with his Liza.
[2024-11-16 17:13] LABS: Hematocrit 26.8 % (37.0-53.0)
--- NOTE | 2024-11-16 17:35 | NUR ---
END OF SHIFT SUMMMARY THE PT IS A&OX4, BEDREST, LEFT SIDED DEFICIT, AND HAS CHRONIC LEFT SIDE OF THE FACIAL DROOP D/T INJURED CRANIAL NERVES. THE PT HAS WEAKNESS TO HIS LUE W/ MINIMAL MOVEMENT. PT ABLE TO MOVE LEFT LEG AND HAS SENSATION. RIGHT SIDE WEAK/DECONDITIONED. HE HAS A CHRONIC RBKA. THE PT HAS BEEN BEDREST. ON TELE HE IS SR BBB 90'S-100'S. LVAD NOTED AND BP'S W/ DOPPLER HAVE BEEN MAP >65. LVAD BATTERIES WERE CHANGED AT 1730. NO RUNS OF VTACH THIS SHIFT. HE HAS BEEN BETWEEN RA-3L NC/OXYMIZER MASK. PT DOES DESATURATE WHILE SLEEPING AND NEEDS OXYGEN. HE DENIES ANY SOB. THE PT HAS BEEN INC OF BOWEL, AND HAS MULTIPLE LARGE SOFT RED/BROWN STOOLS. H&H RECHECKED THIS AFTERNOON AND REMAINS STABLE. HE WILL CONTINUE TO RECIEVE COUMADIN. DR. ZAMORA DISCUSSED RISK VS BENEFITS OF THE MEDICAITON. THE PT DID HAVE AN EXTENSIVE CONVERSATION W/ DR. ZAMORA AND OPTED TO GO HOME ON HOSPICE. CASE MANAGEMENT AND PALLIATIVE CARE AWARE AND WORKING ON SET UP. THE PT ONLY WANTS TO GO ON HOSPICE IF HE CAN GO HOME. HE DOES NOT WANT TO GO TO AN ASSISTED FACILITY AT THIS TIME. THIS RN SPOKE WITH THE PT'S POA WHO IS THE NEPHEW, RAZA, AND UPDATED HIM ON CARE WITH THE PT PRESENT. NO ACUTE EVENTS THIS SHIFT. SEE NOTES FOR ANY UPDATES.
--- NOTE | 2024-11-16 17:35 | NUR ---
LVAD BATTERY CHANGED AT 1730
[2024-11-16] MEDS ORDERED: Warfarin Sodium 1 MG Tab PO ONE (18:00)
[2024-11-16] MEDS ORDERED: Lactated Ringer's 1,000 ML IV ONE (22:55)
[2024-11-16] MEDS ORDERED: Pantoprazole Sodium 40 MG Injection IV ONE (22:55)
--- NOTE | 2024-11-16 22:58 | NUR ---
PT CONTINUES TO HAVE WORSENING BLOODY STOOLS. MOST RECENT SOFT, BRIGHT RED WITH LARGE CLOTS THROUGHOUT STOOL. PT HAS BEEN TACHYCARDIC THROUGHOUT MOST OF SHIFT WITH RATE IN THE 110s-130s. PT FEELS SOB AT TIMES ALTHOUGH THIS SEEMS ASSOCIATED WITH REPOSITIONING, PALE. PER SHIFT REPORT, DAY SHIFT MD AWARE OF POSITIVE GUAIC STOOL SAMPLE ALTHOUGH UNCLEAR HOW MUCH PROBLEM HAS WORSENED SINCE THIS CONVERSATION. CONVERSATION WITH PATIENT REGARDING HIS CODE STATUS, GOALS OF CARE, PLAN FOR HOSPICE, ETC. WHEN ASKED IF THE PLAN IS FOR PATIENT TO GO HOME ON HOSPICE PT CLARIFIES THAT THE PLAN IS TO "GO HOME AND THEN EVENTUALLY GO ON HOSPICE". PT ABLE TO ANSWER ORIENTATION QUESTIONS APPROPRIATELY, ABLE TO CARRY APPROPRIATE CONVERSATION. ATTEMPTED TO EDUCATE PATIENT ON STATUS OF CURRENT CONDITION, GENERAL GOALS OF CARE ASSOCIATED WITH HOSPICE, ETC. PT APPEARS TO BE IN DENIAL ABOUT HIS POSSIBLE NEGATIVE HEALTH OUTCOMES AND JUST REITERATES REPEATEDLY THAT HE DOES NOT WANT TO GO TO [facility] BUT SEEMS TO BELIEVE THAT HE WILL BE ABLE TO GET BETTER OTHERWISE. PT NOTES THAT IF HE DIES THEN IT WILL "BE THE END OF A SHORT, PAINFUL LIFE". PT REITERATES THAT HE DOES NOT WANT TO BE INTUBATED OR HAVE COMPRESSIONS PERFORMED BUT WOULD LIKE TO HAVE MEDICATIONS AND DEFIBRILLATION IN THE EFFECT OF A CODE SITUATION. CALLED HOSPITALIST PIERRE TO INFORM OF SITUATION. PIERRE ORDERED PROTONIX 80 MG IV NOW, PROTONIX 40 MG IV BID STARTING IN MORNING, LR 1 L BOLUS OT NOW, AND STAT H+H WITH RESULTS CALLED BACK TO HIM ONCE AVAILABLE. ORDERS INPUT, AWAITING VERIFICATION. CONTINUING TO MONITOR.
[2024-11-16 23:30] LABS: Hematocrit 28.2 % (37.0-53.0); Hemoglobin 8.8 g/dL (13.5-17.5)
[2024-11-17 03:46] LABS: BASOPHILS ABSOLUTE AUTO 0.06 K/mm3 (0.00-0.23); BASOPHILS PERCENT AUTO 1 % (0-2); EOSINOPHILS ABSOLUTE AUTO 0.29 K/mm3 (0.00-0.68); EOSINOPHILS PERCENT AUTO 2 % (0-6); Hematocrit 27.4 % (37.0-53.0); Hemoglobin 9.1 g/dL (13.5-17.5); IMMATURE GRAN ABSOLUTE AUTO 0.05 K/mm3 (0.00-0.10); IMMATURE GRAN PERCENT AUTO 0 % (0-1); LYMPHOCYTES ABSOLUTE AUTO 1.74 K/mm3 (0.84-5.20); LYMPHOCYTES PERCENT AUTO 14 % (21-46); MONOCYTES ABSOLUTE AUTO 0.74 K/mm3 (0.16-1.47); MONOCYTES PERCENT AUTO 6 % (4-13); Mean Corpuscular HGB 31.9 pg (26.0-34.0); Mean Corpuscular HGB Conc 33.2 g/dL (31.5-36.5); Mean Corpuscular Volume 96 fL (80-100); Mean Platelet Volume 9.8 fL (9.1-12.4); NEUTROPHILS ABSOLUTE AUTO 9.29 K/mm3 (1.96-9.15); NEUTROPHILS PERCENT AUTO 76 % (41-73); Platelet Count 227 K/mm3 (150-400); RDW Standard Deviation 59.1 fL (35.1-46.3); Red Blood Cell Count 2.85 M/mm3 (4.30-5.90); White Blood Cell Count 12.17 K/mm3 (4.00-11.30)
[2024-11-17 04:00] LABS: International Normalized Ratio 1.5; Prothrombin Time Results 15.6 Sec (9.7-11.5)
[2024-11-17 04:17] LABS: Magnesium, Blood 1.5 mg/dL (1.6-2.4)
[2024-11-17 04:18] LABS: Bun/Creatinine Ratio 10.5 (12.0-20.0); Calcium, Blood 6.6 mg/dL (8.5-10.1); Creatinine, Blood 0.67 mg/dL (0.60-1.20); Phosphorus, Blood 1.8 mg/dL (2.5-4.9); Potassium, Blood 4.4 mmol/L (3.5-5.5)
[2024-11-17] MEDS ORDERED: Magnesium Sulf 2 GM/Water 50ML 50 ML IV ONE (04:45)
[2024-11-17] MEDS ORDERED: CALCIUM GLUC IN NACL, ISO-OSM 50 ML IV ONE (04:45)
--- NOTE | 2024-11-17 04:53 | NUR ---
SHIFT SUMMARY. PT HAS BEEN ABLE TO REST COMFORTABLY SPORADICALLY THROUGHOUT SHIFT. HAS BEEN ABLE TO CONSISTENTLY ABLE TO ANSWER ORIENTATION QUESTIONS APPROPRIATELY ALTHOUGH MENTATION HAS FLUCTUATED AT TIMES. EARLY IN SHIFT, PT HAD BRIGHT RED STOOL WITH MANY CLOTS NOTED. CALLED TO NOTIFY PIERRE. SEE PREVIOUS NOTE FOR EXPANDED DETAILS. SINCE THAT TIME PT HAS NOT HAD BM. HGB ON MORNING LABS STABLE. VITALS HAVE BEEN STABLE. PT DESATURATED TO 80s WHILE SLEEPING FEW TIMES D/T PULLING OFF OXYGEN OTHERWISE HAS MAINTAINED ADEQUATE SATURATION ON 2 L O2 VIA NC THROUGHOUT SHIFT. RUNNING SINUS ON TELE, RATE SETTLED IN 90s AFTER RUNNING 110s-130s THROUGHOUT MUCH OF EARLY PART OF SHIFT. DENIES PAIN OUTSIDE OF THAT ASSOCIATED WITH REPOSITIONING. MORNING LABS REVEALED SEVERAL ELECTROLYTE IMBALANCES, CALLED HOSPITALIST DR. PORTER SEVERAL ORDERS INPUT. OTHERWISE THERE HAVE BEEN NO ACUTE CHANGES THROUGHOUT SHIFT. BED LOCKED IN LOWEST POSITION. CALL LIGHT LEFT WITHIN REACH. CONTINUING TO MONITOR.
[2024-11-17] MEDS ORDERED: Sodium Phosphate 30 MM in Dextrose 5% 500 ML IV ONE (05:15)
[2024-11-17] MEDS ORDERED: Torsemide 10 MG TAB PO SCH (09:00)
[2024-11-17] MEDS ORDERED: Pantoprazole Sodium 40 MG Injection IV SCH (09:00)
[2024-11-17] MEDS ORDERED: DOXY100 PO (12:24)
[2024-11-17] MEDS ORDERED: MELATONIN5 M1 PO (12:25)
[2024-11-17] MEDS ORDERED: MAGNESIUM GLYC100 MG PO (12:26)
[2024-11-17] MEDS ORDERED: POTCHL20ER PO (12:26)
--- NOTE | 2024-11-17 12:37 | NUR ---
MORNING SUMMARY THE PT REAMINS DROWSY & ORIENTED X4, BEDREST, LEFT SIDED DEFICIT, CHRONIC RBKA. THE PT IS DISCHARGING HOME WITH HOSPICE TODAY. DR. ZAMORA, THIS RN, AND SHRADDHA RN FROM PALLIATIVE CARE TALKED TO THE PT AGAIN ABOUT HIS WISHES. PT WAS TOLD ABOUT NEED FOR DAILY ELECTROLYTE REPLACEMENT, GIB, AND WEAK HEART. HE UNDERSTANDS WHAT IS GOING ON AND STILL WISHES TO GO HOME. HE DECLINED TO GO TO [facility] AND WANTS TO GO HOME W/ HOSPICE. AROUND 1100 THE PT STARTED EXPRESSING CONCERNS ABOUT BEING HOME BECAUSE OF HIS BODY. HE WAS RE OFFERED OPTIONS ABOUT [facility], COMFORT CARE, OR HOME WITH PALLIATIVE. THE PT WANTS TO GO HOME AND STATED " I HOPE TO AT LEAST LIVE ANOTHER DAY". THE PT UNDERSTANDS HE IS DYING. ON TELE HE IS SR/ST 90'S-100'S, LVAD BATTERIES AT 1230 TODAY. WHEN GETTING 1200 VITALS THE PT'S PULSE WAS DIFFICULT TO FIND WITH THE DOPPLER. CLAIMS ATTORNEY CALLED TO ASSIST AND WITH DIFFICULTY WE WERE ABLE TO FIND IT. MAP 60. PLAN TO STILL GO HOME WITH HOSPICE. HE HAS BEEN ON RA T/O THE MORNING AND SP02 >93%. THE PT DENIES ANY WORSENING SOB. AWAITING FOR TRANSPORT AT THIS TIME. SEE NOTES FOR UPDATES.
--- NOTE | 2024-11-17 14:10 | NUR ---
D/C SUMMARY TRANSPORT PICKED THE PT UP AT 1400. DISCHARGE PAPERWORK WAS GONE OVER WITH THE PT AND QUESTIONS WERE ANSWERED. DURING DISCHARGE, THE PT STATED HE IS HAPPY WITH THE CHOICE OF HOSPICE. HE ASKED IF HE NEEDS TO PICK OUT A HOME, AND WAS ENCOURAGED TO DISCUSS HIS WISHES WITH HIS FAMILY AND IT IS OKAY TO START ARRANGING PLANS FOR HIS . THE HOSPICE NURSE STOPPED BY THE HOSPITAL WHILE TRANSPORT WAS ARRIVING. SHE INTRODUCED HERSELF TO THE PT AND STATED THAT SHE WILL MEET HIM AT HIS HOUSE. THE PT DID ASK IF HE CAN COME BACK TO THE HOSPITAL TO BE PLACED ON COMFORT CARE AND IN THE HOSPITAL, HE WAS EDUCATED THAT HE CAN IF THAT IS HIS WISHES. ALL BELONGINGS WERE SENT WITH THE PT.IV AND POWERGLIDE WERE D/C'D BEFORE DISCHARGE. TRANSPORT INFORMED THAT LVAD BATTERIES WERE CHANGED AT 1230.
[2024-11-17] MEDS ORDERED: Warfarin Sodium 1 MG Tab PO ONE (18:00)
== END 2024-11-17 14:00 | disposition hospice, home (50) | DRG 291 ==
LOC: ER 11:07 → ERHOLD 11:08 → PCU 17:10
PROVIDERS: Emergency Medicine; Internal Medicine; Nurse Practitioner Acute Care; Student in an Organized Health Care Education/Training Program; ADMIT Internal Medicine
DX: I13.0 Hypertensive heart and chronic kidney disease with heart failure and stage 1 through stage 4 chronic kidney disease, or unspecified chronic kidney disease (principal); I50.23 Acute on chronic systolic (congestive) heart failure; J18.9 Pneumonia, unspecified organism; K92.1 Melena; I47.29 Other ventricular tachycardia; I48.0 Paroxysmal atrial fibrillation; Z66 Do not resuscitate; E83.42 Hypomagnesemia; E83.39 Other disorders of phosphorus metabolism; E11.22 Type 2 diabetes mellitus with diabetic chronic kidney disease; I49.3 Ventricular premature depolarization; I27.20 Pulmonary hypertension, unspecified; I25.10 Atherosclerotic heart disease of native coronary artery without angina pectoris; I45.4 Nonspecific intraventricular block; I25.2 Old myocardial infarction; Z88.8 Allergy status to other drugs, medicaments and biological substances; D63.1 Anemia in chronic kidney disease; Z89.611 Acquired absence of right leg above knee; Z98.890 Other specified postprocedural states; Z87.891 Personal history of nicotine dependence; Z79.899 Other long term (current) drug therapy; Z79.2 Long term (current) use of antibiotics
CPT/HCPCS: 36415; 36416; 70450; 70496; 70498; 71045; 80048; 80053; 80061; 81003; 82272; 82947; 83036; 83605; 83735; 83880; 84100; 84145; 84484; 85014; 85018; 85025; 85610; 85730; 87040; 92610; 93005; 93010; 94760; 94762; 96365-59; 96367; 96375; 96376; 97110; 97112; 97163; 97166; 99285-25; A9270; C1751; G0378; J0612; J0696; J1815; J1940; J2470; J3475; J3480; J7060; J7120; Q9967

== ENCOUNTER 2024-11-19 13:39 | Emergency (ER) | payer OTHER ==
[~2024-11-19] VITALS: Ht 182.9 cm; Wt 99.8 kg
[~2024-11-19 13:39] MED LIST changes: +DOXY100 PO; +MAGNESIUM GLYC100 MG PO
[2024-11-19 16:53] LABS: BASOPHILS ABSOLUTE AUTO 0.11 K/mm3 (0.00-0.23); BASOPHILS PERCENT AUTO 1 % (0-2); EOSINOPHILS ABSOLUTE AUTO 0.16 K/mm3 (0.00-0.68); EOSINOPHILS PERCENT AUTO 1 % (0-6); Hematocrit 22.6 % (37.0-53.0); Hemoglobin 7.5 g/dL (13.5-17.5); IMMATURE GRAN ABSOLUTE AUTO 0.06 K/mm3 (0.00-0.10); IMMATURE GRAN PERCENT AUTO 1 % (0-1); LYMPHOCYTES ABSOLUTE AUTO 1.76 K/mm3 (0.84-5.20); LYMPHOCYTES PERCENT AUTO 15 % (21-46); MONOCYTES ABSOLUTE AUTO 0.66 K/mm3 (0.16-1.47); MONOCYTES PERCENT AUTO 6 % (4-13); Mean Corpuscular HGB Conc 33.2 g/dL (31.5-36.5); Mean Corpuscular Volume 100 fL (80-100); Mean Platelet Volume 10.1 fL (9.1-12.4); NEUTROPHILS ABSOLUTE AUTO 8.73 K/mm3 (1.96-9.15); NEUTROPHILS PERCENT AUTO 76 % (41-73); Platelet Count 251 K/mm3 (150-400); RDW Coefficient Variation 18.2 % (11.7-14.2); RDW Standard Deviation 64.3 fL (35.1-46.3); Red Blood Cell Count 2.27 M/mm3 (4.30-5.90); White Blood Cell Count 11.48 K/mm3 (4.00-11.30)
[2024-11-19 17:04] LABS: International Normalized Ratio 1.53; Prothrombin Time Results 15.9 Sec (9.7-11.5)
[2024-11-19 17:18] LABS: Albumin, Blood 1.4 g/dL (3.4-5.0); Albumin/Globulin Ratio 0.4 (0.8-1.8); Bilirubin, Total 0.7 mg/dL (0.1-1.0); Bun/Creatinine Ratio 15.7 (12.0-20.0); Calcium, Blood 7.6 mg/dL (8.5-10.1); Creatinine, Blood 0.57 mg/dL (0.60-1.20); Globulin, Blood 3.3 g/dL (2.2-4.0); Total Protein, Blood 4.7 g/dL (6.4-8.2)
[2024-11-19] MEDS ORDERED: Pantoprazole Sodium 40 MG Injection IV ONE (20:55)
[2024-11-19] MEDS ORDERED: Pantoprazole Sodium 40 MG in NS 50 ML IV SCH (21:00)
[2024-11-19] MEDS ORDERED: NS 1,000 ML IV ONE (21:53)
== END 2024-11-20 00:50 | disposition short-term general hospital (02) ==
LOC: ER 13:39
PROVIDERS: Emergency Medicine
DX: K92.2 Gastrointestinal hemorrhage, unspecified (principal); D62 Acute posthemorrhagic anemia; I25.2 Old myocardial infarction; J44.89 Other specified chronic obstructive pulmonary disease; M19.90 Unspecified osteoarthritis, unspecified site; E11.22 Type 2 diabetes mellitus with diabetic chronic kidney disease; N18.30 Chronic kidney disease, stage 3 unspecified; I13.0 Hypertensive heart and chronic kidney disease with heart failure and stage 1 through stage 4 chronic kidney disease, or unspecified chronic kidney disease; I50.20 Unspecified systolic (congestive) heart failure; Z87.891 Personal history of nicotine dependence; Z79.899 Other long term (current) drug therapy; Z79.01 Long term (current) use of anticoagulants; Z79.4 Long term (current) use of insulin; Z88.1 Allergy status to other antibiotic agents; Z88.8 Allergy status to other drugs, medicaments and biological substances
CPT/HCPCS: 36430; 80053; 85025; 85610; 86850; 86870; 86900; 86901; 86922; 96374; 96376; 99285-25; J2470; J7030; P9016

== ENCOUNTER 2024-12-06 03:04 | Day surgery (SDC) | payer OTHER | END 2024-12-06 23:00 | disposition home or self-care (01) | LOC: WOUND 03:04 | DX: T81.30XD Disruption of wound, unspecified, subsequent encounter (principal); E11.622 Type 2 diabetes mellitus with other skin ulcer; I70.202 Unspecified atherosclerosis of native arteries of extremities, left leg; I50.84 End stage heart failure; Z89.611 Acquired absence of right leg above knee; Y83.8 Other surgical procedures as the cause of abnormal reaction of the patient, or of later complication, without mention of misadventure at the time of the procedure | CPT/HCPCS: G0463 ==

== ENCOUNTER 2024-12-06 03:22 | Day surgery (SDC) | payer OTHER ==
--- NOTE | 2024-12-06 16:56 | NUR ---
All dressing supplies provided by pt. Old LVAD dressing removed. Small light pink spot under LVAD drive line. Skin intact. NO c/o of soreness when insertion site cleaned with chlorprep. Allowed to drive. Skin prep applied. Saline soaked silver dressing applied around drive line. Sterile 4x4 gauze x2 and tegaderm dressing applied over drive line site. Two telfa dressings over the top of the tegaderm dressing. Drive line anchor changed. Sterile technique maintained throughout dressing change.
== END 2024-12-06 16:56 | disposition home or self-care (01) ==
LOC: ATC 03:22
DX: I42.9 Cardiomyopathy, unspecified (principal); I11.0 Hypertensive heart disease with heart failure; I50.23 Acute on chronic systolic (congestive) heart failure; E11.40 Type 2 diabetes mellitus with diabetic neuropathy, unspecified; I48.0 Paroxysmal atrial fibrillation; E78.5 Hyperlipidemia, unspecified; Z79.4 Long term (current) use of insulin; Z79.899 Other long term (current) drug therapy; Z79.01 Long term (current) use of anticoagulants; Z88.8 Allergy status to other drugs, medicaments and biological substances; Z91.040 Latex allergy status
CPT/HCPCS: 99211

== ENCOUNTER 2024-12-20 02:26 | Day surgery (SDC) | payer OTHER ==
--- NOTE | 2024-12-20 17:01 | NUR ---
LVAD DRSG CHANGE ALL SUPPLIES PROVIDED BY THE PATIENT. STERILE TECHNIQUE MAINTAINED THROUGHOUT. ANCHOR DEVICE CHANGED. OLD DRSG REMOVED. AREA IS FREE OF REDNESS AND DRAINAGE. SITE IS CLEAN AND NO OPEN SORES NOTED AROUND THE DRIVELINE. AREA CLEANSED WITH CHLORAPREP AND AIR DRIED. STERILE SALINE SOAKED SILVADENE DRAIN SPONGE PLACED AROUND THE DRIVELINE AND COVERED WITH 2 FOLDED STERILE 4X4 DRSGS. TEGADERM WINDOW DRSG PLACED OVER THE TOP. TWO EXTRA TELFA DRSGS PLACED OVER THE TOPS OF THAT FOR ADDED SECUREMENT.
== END 2024-12-20 16:00 | disposition home or self-care (01) ==
LOC: ATC 02:26
DX: Z48.01 Encounter for change or removal of surgical wound dressing (principal); I42.9 Cardiomyopathy, unspecified; I48.0 Paroxysmal atrial fibrillation; I11.0 Hypertensive heart disease with heart failure; I50.23 Acute on chronic systolic (congestive) heart failure; E78.5 Hyperlipidemia, unspecified; E11.40 Type 2 diabetes mellitus with diabetic neuropathy, unspecified; M10.9 Gout, unspecified; F33.1 Major depressive disorder, recurrent, moderate; Z88.8 Allergy status to other drugs, medicaments and biological substances; Z91.040 Latex allergy status
CPT/HCPCS: 99211

== ENCOUNTER 2024-12-20 05:13 | Day surgery (SDC) | payer OTHER | END 2024-12-20 23:00 | disposition home or self-care (01) | LOC: WOUND 05:13 | DX: T81.30XD Disruption of wound, unspecified, subsequent encounter (principal); E11.622 Type 2 diabetes mellitus with other skin ulcer; I70.202 Unspecified atherosclerosis of native arteries of extremities, left leg; I50.84 End stage heart failure; Z89.611 Acquired absence of right leg above knee; Y83.8 Other surgical procedures as the cause of abnormal reaction of the patient, or of later complication, without mention of misadventure at the time of the procedure | CPT/HCPCS: G0463 ==